=== PATIENT | male | born 1985 ===

== ENCOUNTER 2020-05-17 08:51 | Emergency (ER) | payer OTHER, SELFPAY ==
[2020-05-17 08:58] VITALS: BP 155/99; PULSE 92; RESP 16; TEMP 36.6; O2SAT 96; BMI 46.6
--- NOTE | 2020-05-17 09:24 | ED_ITS ---
HPI - Extremity Problem General Chief complaint: Extremity Problem Stated complaint: l wrist swollen pain Time Seen by Provider: 05/17/20 09:21 Source: patient Mode of arrival: ambulatory Limitations: no limitations History of Present Illness HPI Narrative: right wrist pain today without known injury. MD Complaint: extremity pain Pain Consistency: constant Location: right and other ( Wrist) Severity scale (1-10): 7 Quality: aching Radiation: none Relieving factors: immobilization Exacerbating factors: range of motion Associated symptoms: denies other symptoms Related Data Previous Rx's Medication Instructions Recorded ibuprofen 800 mg PO Q8H PRN #30 tab 05/17/20 oxycodone-acetaminophen [Percocet] 1 tab PO Q8H PRN #7 tab 05/17/20 prednisone 40 mg PO DAILY 5 Days #10 tab 05/17/20 Allergies Allergy/AdvReac Type Severity Reaction Status Date / Time kiwi [KIWI] Allergy Unknown SCRATCHY Verified 05/17/20 09:53 THROAT/VOMITING Review of Systems Review of Systems: Constitutional: No Weight loss, No Fever, No Chills, No Night Sweats, No Fatigue, No Malaise ENT/Mouth: No Hearing loss, No Ear Pain, No Nasal Congestion, No Sinus Pain, No Hoarseness, No sore throat, No Rhinorrhea, No Swallowing Difficulty Eyes: No Eye Pain, No Swelling, No Redness, No Foreign Body, No Discharge, No Vision Changes Cardiovascular: No Chest Pain, No SOB, No Dyspnea on Exertion, No Orthopnea, No Edema, No Palpitations Respiratory: No Cough, No Sputum, No Wheezing, No Smoke Exposure, No Dyspnea Gastrointestinal: No Nausea, No Vomiting, No Diarrhea, No Constipation, No abdominal Pain, No Hematochezia, No Melena Genitourinary: no irregular bleeding, No Dysuria, No Urinary Frequency, No Hematuria, No Urinary Incontinence, No Urgency, No Flank Pain, No Urinary Flow Changes, No Hesitancy Musculoskeletal: as noted in HPI Skin: No Skin Lesions, No rash Neuro: No Weakness, No Numbness, No Paresthesias, No Loss of Consciousness, No Dizziness, No Headache Psych: No Anxiety/Panic, No Depression, No SI/HI/AH/VH, No Social Issues Heme/Lymph: No Bruising, No Bleeding,No Lymphadenopathy Endocrine: No Polyuria, No Polydipsia, No Temperature Intolerance [facility] Past Medical History Attestation statement: The following information was validated with the patient. Medical History (Updated 05/17/20 @ 10:48 by Marek Kang NP) Diabetes mellitus, type 2 Social History Social History Alcohol intake: unknown Smoking Status: Unknown if ever smoked Advance Directives: No Advance Directives Information Provided: Yes Physical Exam Vital Signs: Vital Signs: Vital Signs Temp Pulse Resp BP Pulse Ox 05/17/20 08:58 97.8 F 92 16 155/99 H 96 Body Mass Index 46.6 Reviewed Const: General: cooperative and healthy appearing; No acute distress or intoxicated appearing Nutritional Appearance: average body habitus Orientation/consciousness: patient oriented x3 HENMT: Head: Yes normal to inspection Ears: hearing grossly normal bilaterally Eyes: General: appearance normal, both eyes and all related structures Visual Castro: normal visual castro by confrontation Chest: Chest palpation & inspection: normal inspection of the chest Resp: Effort & Inspection: normal respiratory effort Cardio: Jugular venous distension: no JVD Skin: General skin exam: no rashes or lesions noted Neuro: General: patient oriented x3 Extrem: General: Yes normal to inspection Elbow/forearm/wrist images: 1. area of pain. Neurovascular intact. Able to make a fist. No erythema or swelling. Course Course Course Narrative: Labs show hyperglycemia in a known diabetic did not take his metformin this morning otherwise no acute derangement. uric acid normal high. X-ray findings consistent with sequela of chronic disease related to unchanged negative ulnar variance which can sometimes be seen and ulnar impingement syndrome. Patient given wrist splint. Follow-up with orthopedics. MDM - Extremity (Nontraumatic) Lab Data Result diagrams: 05/17/20 09:38 05/17/20 09:39 Labs: Lab Results 05/17/20 05/17/20 05/17/20 Range/Units 09:38 09:38 09:39 WBC 7.8 (4.8-10.8) X10*3/uL RBC 4.88 (4.60-5.80) X10*6/uL Hgb 12.9 L (14.0-18.0) g/dl Hct 39.3 L (42-52) % MCV 80.5 (80-98) fL MCH 26.4 L (27.0-33.0) pg MCHC 32.8 (31.0-36.0) g/dl RDW 11.9 (11.0-16.0) % Plt Count 245 (160-400) X10*3/uL MPV 9.2 L (9.4-12.4) fL Immature Gran % (Auto) 0.3 (0.0-0.4) % Neut % (Auto) 66.0 (45-73) % Lymph % (Auto) 21.7 (20-40) % [place] % (Auto) 7.8 (2-11) % Eos % (Auto) 3.7 (0-4) % Baso % (Auto) 0.5 (0-2) % Lymph # (Auto) 1.7 (1.2-4.9) X10*3/uL [place] # (Auto) 0.6 (0.1-1.2) X10*3/uL Eos # (Auto) 0.3 (0.0-0.4) X10*3/uL Baso # (Auto) 0.0 (0.0-0.2) X10*3/uL Abs Immat Gran (auto) 0.02 (0.00-0.03) X10*3/uL Absolute Neuts (auto) 5.2 (2.0-8.3) X10*3/uL Absolute Nucleated RBC 0.000 (0.0-0.012) X10*3/uL Nucleated RBC % (auto) 0.0 (0.0-0.2) /100WBC Sodium 133 L (135-145) mmol/L Potassium 4.2 (3.3-5.1) mmol/l Chloride 99 (96-108) mmol/L Carbon Dioxide 23 (22-29) mmol/L Anion Gap 15 (12-20) BUN 22 H (9-16) mg/dL Creatinine 1.20 (0.5-1.4) mg/dL Estim Creat Clear Calc 129.8 Estimated GFR > 60 Random Glucose 325 H (60-115) mg/dL Uric Acid 7.0 (3.4-7.0) mg/dL Calcium 9.0 (8.4-10.2) mg/dL Discharge Plan Discharge Clinical Impression: Acute wrist pain Qualifiers: Laterality: right Qualified Code(s): M25.531 - Pain in right wrist Patient Disposition: Home, Self-Care Instructions: Arthralgia (ED) Additional Instructions: Please follow-up with office of Dr. Lopez orthopedic Hand doctor Wear supportive splint for comfort Ibuprofen for pain discomfort per label instructions Short course steroids as prescribed Rest, ice, elevate Return if any concerns or worsening symptoms otherwise follow up as instructed Thank you Prescriptions: New ibuprofen 800 mg tablet 800 mg PO Q8H PRN (Reason: pain) Qty: 30 RF: 0 prednisone 20 mg tablet 40 mg PO DAILY 5 Days Qty: 10 RF: 0 oxycodone-acetaminophen [Percocet] 5-325 mg tablet 1 tab PO Q8H PRN (Reason: pain) Qty: 7 RF: 0 Referrals: Ofelia Valadez MD [Physician] - 1 week Stand Alone Forms: Work/School Release Interventions: ED Discharge Assessment Last Done: 05/17/20 10:55 Discharge Date/Time: 05/17/20 10:58
--- NOTE | 2020-05-17 09:25 | XR_ITS ---
EXAMINATION: XR WRIST, RIGHT CLINICAL INFORMATION: No injury. Pain medial side. COMPARISON: Right wrist radiographs 04/17/2015. TECHNIQUE: PA, lateral, and oblique views of the right wrist. FINDINGS: Prior healed fourth and fifth metacarpal fractures with mild palmar angulation distally. No acute osseous abnormality is seen in the wrist. There is unchanged negative ulnar variance. IMPRESSION: No acute osseous abnormality is seen. Unchanged negative ulnar variance is seen at the wrist which can be associated with ulnar impingement syndrome. No interval change from prior
[2020-05-17] MEDS: predniSONE 20 MG TABLET 40 MG PO (09:31)
[2020-05-17] MEDS: Ibuprofen 800 MG TABLET PO (09:31)
[2020-05-17 09:42] LABS: MANUAL DIFF FLAG NO
[2020-05-17 09:45] LABS: Basophils Percent Auto 0.5 % (0-2); Eosinophils Absolute Auto 0.3 X10*3/uL (0.0-0.4); Eosinophils Percent Auto 3.7 % (0-4); Hematocrit 39.3 % (42-52); Hemoglobin 12.9 g/dl (14.0-18.0); Imm Gran Abs Auto 0.02 X10*3/uL (0.00-0.03); Imm Gran Pct Auto 0.3 % (0.0-0.4); Lymphocytes Absolute Auto 1.7 X10*3/uL (1.2-4.9); Lymphocytes Percent Auto 21.7 % (20-40); Mean Corpuscular HGB Conc 32.8 g/dl (31.0-36.0); Mean Corpuscular Hemoglobin 26.4 pg (27.0-33.0); Mean Corpuscular Volume 80.5 fL (80-98); Mean Platelet Volume 9.2 fL (9.4-12.4); Monocytes Absolute Auto 0.6 X10*3/uL (0.1-1.2); Monocytes Percent Auto 7.8 % (2-11); Neutrophils Absolute Auto 5.2 X10*3/uL (2.0-8.3); Platelet Count 245 X10*3/uL (160-400); Red Blood Count 4.88 X10*6/uL (4.60-5.80); Red Cell Distribution Width 11.9 % (11.0-16.0); White Blood Count 7.8 X10*3/uL (4.8-10.8)
[2020-05-17 10:11] LABS: Anion Gap 15 (12-20); Blood Urea Nitrogen 22 mg/dL (9-16); Carbon Dioxide 23 mmol/L (22-29); Chloride 99 mmol/L (96-108); Creatinine Clr Calc Pharmacy 129.8; Estimated Glomerular Filt Rate > 60; Glucose Random 325 mg/dL (60-115); Potassium 4.2 mmol/l (3.3-5.1); Sodium 133 mmol/L (135-145)
== END 2020-05-17 10:58 | disposition home or self-care (01) ==
PROVIDERS: Nurse Practitioner Primary Care; Emergency Provider Emergency Medicine
DX: M25.531 Pain in right wrist (principal); E11.9 Type 2 diabetes mellitus without complications
CPT/HCPCS: 29125; 36415; 73110; 80048; 84550; 85025; 99283; 99284

== ENCOUNTER 2020-12-02 19:00 | Emergency (ER) | payer MEDICAID, SELFPAY | END 2020-12-02 19:27 | DX: Z76.0 Encounter for issue of repeat prescription (principal) ==

== ENCOUNTER 2020-12-02 19:46 | Emergency (ER) | payer MEDICAID, SELFPAY ==
[2020-12-02 20:01] VITALS: BP 150/105; PULSE 110; RESP 16; TEMP 36.7; O2SAT 97; BMI 35.9
--- NOTE | 2020-12-02 20:12 | ED_ITS ---
HPI - General Adult General Chief complaint: General Medical Stated complaint: med refill Time Seen by Provider: 12/02/20 19:52 Source: patient Mode of arrival: ambulatory Limitations: no limitations History of Present Illness HPI narrative: 35 yo male with a past medical history of diabetes and hypertension here seeking med refill. The patient tells me that he last took his medications 2 days ago. Unfortunately, he called to refilled medications today and he found out that his primary care practice is closed. He is working on establishing a new primary care doctor. He has no physical complaints Related Data Previous Rx's Medication Instructions Recorded ibuprofen 800 mg PO Q8H PRN #30 tab 05/17/20 oxycodone-acetaminophen [Percocet] 1 tab PO Q8H PRN #7 tab 05/17/20 prednisone 40 mg PO DAILY 5 Days #10 tab 05/17/20 amlodipine-benazepril 1 cap PO DAILY #30 cap 12/02/20 blood sugar diagnostic #10 ea 12/02/20 blood-glucose meter #1 ea 12/02/20 chlorthalidone 50 mg PO DAILY #30 tab 12/02/20 dulaglutide [Trulicity] 1.5 mg SUBCUT QWEEK #2 ml 12/02/20 lancets #100 ea 12/02/20 metformin 500 mg PO BID #60 tab 12/02/20 metoprolol succinate 50 mg PO DAILY #30 tab 12/02/20 Allergies Allergy/AdvReac Type Severity Reaction Status Date / Time kiwi [KIWI] Allergy Unknown SCRATCHY Verified 05/17/20 09:53 THROAT/VOMITING Review of Systems Review of Systems: Yes all other systems are reviewed and are negative Constitutional: Constitutional: Reports no additional constitutional complaints, Denies body ache(s), Denies chills, Denies fever(s), Denies headache(s) and Denies weakness Eyes: Eyes: Reports no additional eye complaints and Denies change in vision ENT: Reports system reviewed and no additional complaints, except as documented, Denies dizziness, Denies headache(s), Denies nasal congestion, Denies nasal discharge and Denies neck pain Cardiovascular: Cardiovascular: Reports no additional cardiovascular complaints, Denies chest pain, Denies leg edema and Denies dyspnea Respiratory: Respiratory: Reports no additional respiratory complaints, Denies cough and Denies dyspnea Gastrointestinal: Gastrointestinal: Reports no additional gastrointestinal complaints, Denies abdominal pain, Denies diarrhea, Denies nausea and Denies vomiting Genitourinary: Genitourinary: Denies urinary incontinence Musculoskeletal: Musculoskeletal: Reports no additional musculoskeletal complaints, Denies back pain, Denies arthralgias, Denies joint swelling, Denies neck pain, Denies numbness and Denies tingling Integumentary/Breasts: Skin/Breast: Reports system reviewed and no additional complaints, except as docu and Denies rash Neurologic: Reports system reviewed and no additional complaints, except as documented, Denies Abnormal speech present, Denies dizziness, Denies headache(s), Denies numbness, Denies tingling and Denies weakness PMFSH Past Medical History Attestation statement: The following information was validated with the patient. Source: old records reviewed and nursing notes reviewed Medical History (Updated 12/02/20 @ 20:13 by Caty Heredia NP) Diabetes Diabetes mellitus, type 2 Hypertension Social History Social History Alcohol intake: former Smoking Status: Former smoker Smoked in Last 30 Days: No Use of substances other than those prescribed or required for medical reasons: No Advance Directives: No Advance Directives Information Provided: Yes Physical Exam Vital Signs: Vital Signs: Last Vital Signs Temp 98.1 F 12/02/20 20:01 Pulse 110 H 12/02/20 20:01 Resp 16 12/02/20 20:01 BP 150/105 H 12/02/20 20:01 Pulse Ox 97 12/02/20 20:01 Body Mass Index 35.9 Const: General: cooperative, healthy appearing, comfortable and no acute distress Orientation/consciousness: patient oriented x3 Limitations: no limitations HENMT: Head: Yes normal to inspection Ears: hearing grossly normal bilaterally General nose exam: Normal external nose present Face and sinus: Yes normal facial exam Mouth: Normal oral and palatal mucosa present Throat: Yes posterior oropharynx normal Eyes: General: appearance normal, both eyes and all related structures Pupils: Equal, round and reactive pupils present Neck: Neck: Yes normal visual inspection Chest: Chest palpation & inspection: normal inspection of the chest Resp: Effort & Inspection: normal respiratory effort Auscultation: clear to auscultation bilaterally Cardio: Rate: regular rate Rhythm: regular rhythm Peripheral pulses: Peripheral pulses 2+ throughout GI: Inspection: Yes normal to inspection Palpation (GI): Soft to palpation and nontender Auscultation: normal bowel sounds Back/Spine/Pelvis: Thoracic/Lumbar Spine: thoracic and lumbar spine normal to inspection Skin: General skin exam: no rashes or lesions noted Neuro: General: patient oriented x3, no focal motor deficits and normal sensation to monofilament Cranial nerves: Yes Equal, round and reactive pupils present Cognition (Neuro): normal cognition Speech: No Abnormal speech present Gait exam (Neuro): Normal gait present Motor exam (neuro): 5/5 motor strength present throughout Extrem: General: Yes normal to inspection Course Course Course Narrative: Patient here seeking medication refills for his high blood pressure and diabetes medications. He has no physical complaints. His last dose of medications for 2 days ago. Did confirm medications with [facility]. Patient is working on establishing a primary care doctor. He tells me he returned from [facility] 2 days ago. While he was there they started him on Tresiba injectable every night. I am unable to confirm this medication with a pharmacy. Will refill his other medications. Patient tells me he also ran out of lancets, strips and his batery for his glucometer. I will refill these. I did discuss the patient at the emergency department is not here for medication refills however will make this exception for 30 days supply of medications and strongly encouraged him to establish a primary care doctor. Asymptomatic HTN. Reviewed worrisome signs and symptoms of when to return to the emergency department. Comfortable discharge home. Discharge Plan Discharge Clinical Impression: Medication refill Patient Disposition: Home, Self-Care Instructions: Medicine Refill (ED) Prescriptions: New metformin 500 mg tablet 500 mg PO BID Qty: 60 RF: 0 chlorthalidone 50 mg tablet 50 mg PO DAILY Qty: 30 RF: 0 amlodipine-benazepril 10-40 mg capsule 1 cap PO DAILY Qty: 30 RF: 0 Trulicity 1.5 mg/0.5 mL pen injector 1.5 mg subcut QWEEK Qty: 2 RF: 0 (DME) blood-glucose meter Kit See Rx Instructions .ROUTE .MEDSUPPLY Qty: 1 RF: 0 (DME) lancets Misc See Rx Instructions .ROUTE .MEDSUPPLY Qty: 100 RF: 0 (DME) blood sugar diagnostic Strip See Rx Instructions .ROUTE .MEDSUPPLY Qty: 10 RF: 0 metoprolol succinate 50 mg tablet extended release 24 hr 50 mg PO DAILY Qty: 30 RF: 0 No Action ibuprofen 800 mg tablet 800 mg PO Q8H PRN (Reason: pain) Qty: 30 RF: 0 prednisone 20 mg tablet 40 mg PO DAILY 5 Days Qty: 10 RF: 0 oxycodone-acetaminophen [Percocet] 5-325 mg tablet 1 tab PO Q8H PRN (Reason: pain) Qty: 7 RF: 0 Interventions: ED Discharge Assessment Last Done: 12/02/20 20:44 Discharge Date/Time: 12/02/20 20:53
== END 2020-12-02 20:53 | disposition home or self-care (01) ==
LOC: HO.ED 20:13
PROVIDERS: Emergency Provider Internal Medicine
DX: Z76.0 Encounter for issue of repeat prescription (principal); E11.9 Type 2 diabetes mellitus without complications; I10 Essential (primary) hypertension
CPT/HCPCS: 99283; 99284

== ENCOUNTER → 2021-02-09 07:41 | Outpatient (REF) | payer MEDICAID, SELFPAY ==
--- NOTE | 2021-02-09 07:50 | CA_ITS ---
Transthoracic Echocardiogram Patient (Last, First, Middle): Colt Galvan, Gender: Male Date of : 1985 Age: 35 Procedure Date: 02/09/2021 Procedure Type: Transthoracic Echocardiogram Location: OP Height: 182.88 cm Weight: 123.83 kg BSA: 2.43 m2 Heart Rate: bpm BP: 180 / 98 mmHg [facility]: Referring MD: Valerio Wing MD Symptoms: R00.0 R94.31 TACHYCARDIA ABNORMAL EKG Study Quality: Good ECG Rhythm: Sinus Conclusions: - The left ventricular systolic function is normal. The visually estimated ejection fraction is between 60-65%. - No obvious valvular pathology seen on this study. - The inferior vena cava is mildly dilated and collapses greater than 50% with inspiration. Findings Procedure Information The patient receives contrast. Left Ventricle Normal left ventricular cavity size. There is mildly increased left ventricular wall thickness. The left ventricular systolic function is normal. The visually estimated ejection fraction is between 60-65%. There is no evidence of regional wall motion abnormalities. Diastolic function is normal for age. Right Ventricle Normal right ventricular cavity size and systolic function. Atria Both atria are normal in size. Aortic Valve The aortic valve was not well visualized. There is no aortic valve stenosis. There is no aortic valve regurgitation. Mitral Valve The mitral valve appears normal. There is trace mitral valve regurgitation. There is no mitral valve stenosis. Pulmonic Valve The pulmonic valve was not well visualized. Tricuspid Valve Normal tricuspid valve structure. There is trace tricuspid valve regurgitation. Tricuspid regurgitation envelope is inadequate for calculation of right ventricular systolic pressure. Great Vessels The aortic annulus, sinuses of valsalva, and asc aorta are normal in size. Venous The inferior vena cava is mildly dilated and collapses greater than 50% with inspiration. Pericardium/Pleural There is no evidence of pericardial effusion. Prior Study Comparison No prior study available for comparison. Recommendations, Care & Conclusions No obvious valvular pathology seen on this study. Measurements 2D Linear Measurements RVIDd: 3.37 RVIDd Index: 1.39 IVSd: 1.01 0.6-0.9/0.6-1.0 cm LVIDd: 5.37 3.9-5.3/4.2-5.9 cm LVIDd Index: 2.21 2.4-3.2/2.2-3.1 cm/m2 LVIDs: 3.49 2.0-3.6 cm LVPWd: 1.34 0.7-1.1 cm Ao Root: 2.80 2.1-3.5 cm LA Diam: 4.60 2.7-3.8/3.0-4.0 cm LAIDs Index: 1.89 1.5-2.3 cm/m2 LV Mass: 317.46 67-162/88-224 g LV Mass Index: 130.64 43-95/49-115 g/m2 LVOT Diam: 2.30 3.0+(-)1.3 cm 2D Systolic Function EF 4C: 73.90 >55% EF 2C: 75.60 >55% Mitral Valve E'Lateral: 11.10 E'Medial: 9.14 Aortic Valve AoV Pk Juan Manuel: 1.51 AoV Mn Juan Manuel: 1.17 AoV VTI: 0.31 AoV Pk Grad: 9.00 Aov Mn Grad: 6.00 MYLES Cont.VTI: 2.40 LVOT LVOT Pk Juan Manuel: 0.93 LVOT Mn Juan Manuel: 0.62 LVOT VTI: 0.18 LVOT Pk Grad: 3.00 LVOT Mn Grad: 2.00 LVOT Diam: 2.30 LVOT Area: 4.15 Diastolic Function E'Medial: 9.14 E' Laterial: 11.10 Tricuspid Valve RA Press: 8.00 Great Vessels Aorta Ao Root-2D: 2.80 2.0-3.7 cm Ao Asc: 3.30 2.1-3.4 cm Updated in Other Vendor System with Status of Final Pasquale Dominique MD electronically signed on 02/09/2021 10:40:55 AM with status of Final
== END ==
LOC: HO.CARD 07:41
PROVIDERS: PCP Internal Medicine; Visit Provider Internal Medicine
DX: R00.0 Tachycardia, unspecified (principal); R94.31 Abnormal electrocardiogram [ECG] [EKG]; D64.9 Anemia, unspecified; E11.9 Type 2 diabetes mellitus without complications; E78.5 Hyperlipidemia, unspecified; N52.9 Male erectile dysfunction, unspecified; E55.9 Vitamin D deficiency, unspecified; Z20.2 Contact with and (suspected) exposure to infections with a predominantly sexual mode of transmission
CPT/HCPCS: 93306; Q9957

== ENCOUNTER 2021-02-16 10:06 | Outpatient (REF) | payer MEDICAID, SELFPAY ==
[2021-02-16 11:12] LABS: Hematocrit 40.1 % (42-52); Hemoglobin 12.6 g/dl (14.0-18.0); Mean Corpuscular HGB Conc 31.4 g/dl (31.0-36.0); Mean Corpuscular Hemoglobin 24.8 pg (27.0-33.0); Mean Corpuscular Volume 78.8 fL (80-98); Mean Platelet Volume 9.7 fL (9.4-12.4); Platelet Count 278 X10*3/uL (160-400); Red Blood Count 5.09 X10*6/uL (4.60-5.80); Red Cell Distribution Width 14.2 % (11.0-16.0); White Blood Count 21.7 X10*3/uL (4.8-10.8)
[2021-02-16 11:18] LABS: Alanine Aminotransferase 28 U/L (0-40); Albumin Level 3.4 g/dL (3.5-5.0); Alkaline Phosphatase 101 U/L (39-117); Anion Gap 13 (12-20); Aspartate Amino Transferase 28 U/L (5-37); Blood Urea Nitrogen 23 mg/dL (9-16); Calcium 8.4 mg/dL (8.4-10.2); Carbon Dioxide 27 mmol/L (22-29); Chloride 101 mmol/L (96-108); Cholesterol 104 mg/dL; Estimated Glomerular Filt Rate 47; Glucose Fasting 149 mg/dL (60-99); HDL Cholesterol 54 mg/dL; LDL Cholesterol Calculated 37 mg/dl; Potassium 3.5 mmol/L (3.3-5.1); Sodium 137 mmol/L (135-145); Total Protein 6.5 g/dL (6.5-8.0); Triglycerides 65 mg/dL
[2021-02-16 11:31] LABS: HIV AB/AG Nonreactive (Nonreactive); HIV Num 1 0.45 S/CO (0.00-0.99)
[2021-02-16 11:44] LABS: Syphilis Screen Nonreactive (Nonreactive)
[2021-02-16 12:18] LABS: Band Neutrophils Percent 24 % (3-5); Lymphocytes Absolute Manual 1.1 X10*3/uL (0.6-4.8); Lymphocytes Percent Manual 5 % (20-40); Metamyelocytes Absolute 0.7 X10*3/uL; Metamyelocytes Percent 3 %; Monocytes Absolute Manual 0.7 X10*3/uL (0.0-1.2); Monocytes Percent Manual 3 % (2-11); Neutrophils Absolute Manual 19.3 X10*3/uL (2.2-7.9); Neutrophils Percent Manual 65 % (45-73)
[2021-02-16 12:19] LABS: Microcytosis 1+ (5-14) /OIF; Platelet Estimate NORMAL (NORMAL); Platelet Morphology Comment NORMAL; RBC Morphology NOTED
[2021-02-19 22:02] LABS: Glutamic acid decarboxylase Ab <5 IU/mL (<5)
[2021-02-20 13:11] LABS: Vitamin D 25-OH, D2 <4 ng/mL; Vitamin D 25-OH, D3 26 ng/mL; Vitamin D 25-OH, Total 26 ng/mL (30-100)
[2021-02-20 18:56] LABS: Testosterone, Free 16.8 pg/mL (35.0-155.0); Testosterone, Total 61 ng/dL (250-1100)
[2021-03-06 19:02] LABS: Insulin Auto Antibody <0.4 U/mL (<0.4)
== END 2021-02-16 10:07 | disposition home or self-care (01) ==
LOC: HO.LAB 10:06
PROVIDERS: PCP Internal Medicine; Visit Provider Internal Medicine
DX: E55.9 Vitamin D deficiency, unspecified (principal); D64.9 Anemia, unspecified; E11.9 Type 2 diabetes mellitus without complications; N52.9 Male erectile dysfunction, unspecified; Z20.2 Contact with and (suspected) exposure to infections with a predominantly sexual mode of transmission
CPT/HCPCS: 36415; 80053; 80061; 82306; 84402; 84403; 85007; 85025; 85027; 86337; 86341; 86780; 87389

== ENCOUNTER 2021-02-17 08:33 | Outpatient (REF) | payer MEDICAID, SELFPAY ==
[2021-02-17 11:20] LABS: Creatinine Urine 168.63 mg/dL; Microalbum/Creatinine Ratio Ur 11.2 ug/mg cr
== END 2021-02-17 08:34 | disposition home or self-care (01) ==
LOC: HO.LAB 08:33
PROVIDERS: PCP Internal Medicine; Visit Provider Internal Medicine
DX: E11.9 Type 2 diabetes mellitus without complications (principal)
CPT/HCPCS: 82043

== ENCOUNTER 2021-02-17 08:33 | Emergency (ER) | payer MEDICAID, SELFPAY ==
--- NOTE | ~2021-02-17 | XR_ITS ---
EXAMINATION: XR CHEST CLINICAL INFORMATION: Cough, wheezing COMPARISON: Chest radiographs 10/04/2018, 09/29/2014 TECHNIQUE: The chest is imaged in 2 frontal views and a lateral projection for a total of 3 views. FINDINGS: There is consolidation involving the left lower lobe with some sparing apex superior segment. There is no volume loss or mediastinal shift. Symmetric coarsening of the bronchiolar markings is present. No hyperinflation. No overt effusion. Right costophrenic sulcus is clear. The heart is normal in size. The hilar and mediastinal contours and bony structures are unremarkable. XR/XR chest 2V IMPRESSION: Pneumonia left lower lobe. Coarsening bronchiolar markings
--- NOTE | 2021-02-17 08:48 | ECG_ITS ---
Test Reason : CP Blood Pressure : / mmHG Vent. Rate : 100 BPM Atrial Rate : 100 BPM P-R Int : 158 ms QRS Dur : 102 ms QT Int : 372 ms P-R-T Axes : 061 075 044 degrees QTc Int : 479 ms Normal sinus rhythm Normal ECG When compared with ECG of 29-SEP-2014 16:57, No significant change was found Referred By: Generic ED Physician Electronically Signed By:JOSÉ NEWBY MD
[2021-02-17 08:52] VITALS: BP 104/66; PULSE 102; RESP 18; TEMP 37.1; O2SAT 98; BMI 41.6
--- NOTE | 2021-02-17 08:54 | ED.CHESTPAIN ---
HPI - Chest Pain General Stated Complaint: Chest Pain Time Seen by Provider: 02/17/21 08:54 Source: patient Mode of arrival: ambulatory Limitations: no limitations History of Present Illness HPI narrative: patient with cough and wheezing. Feels tight and has frontal headache. Coughing up yellow sputum. complaint: chest heaviness Onset (ago): day(s) Timing of current episode: constant Pain radiation: none Quality: heaviness Related Data Home Medications Medication Instructions Recorded Confirmed albuterol sulfate 90 mcg/actuation 2 puff INHALATION Q6H PRN 01/22/21 01/22/21 aerosol inhaler Previous Rx's Medication Instructions Recorded blood sugar diagnostic #10 ea 12/02/20 blood-glucose meter #1 ea 12/02/20 lancets #100 ea 12/02/20 escitalopram oxalate 5 mg tablet 5 mg PO DAILY 90 Days #90 tab 01/22/21 amlodipine 10 mg-benazepril 40 mg 1 cap PO DAILY 90 Days #90 cap 01/26/21 capsule chlorthalidone 50 mg tablet 50 mg PO DAILY 90 Days #90 tab 01/26/21 dulaglutide 1.5 mg/0.5 mL 1.5 mg SUBCUT QWEEK 30 Days #2.5 ml 01/26/21 subcutaneous pen injector insulin degludec 100 unit/mL (3 25 unit SUBCUT QPM 90 Days #22.5 ml 01/26/21 mL) subcutaneous pen metformin 500 mg tablet 500 mg PO BID 90 Days #180 tab 01/26/21 metoprolol succinate 25 mg 25 mg PO DAILY 90 Days #90 tab 01/26/21 tablet,extended release 24 hr omeprazole 20 mg capsule,delayed 20 mg PO DAILY 90 Days #90 cap 01/26/21 release pregabalin 75 mg capsule 75 mg PO DAILY 90 Days #90 cap 01/26/21 pen needle, diabetic 31 gauge x #50 ea 01/29/21 5/16 levofloxacin 500 mg PO DAILY #10 tab 02/17/21 Allergies Allergy/AdvReac Type Severity Reaction Status Date / Time kiwi [KIWI] Allergy Intermediate SCRATCHY Verified 01/22/21 15:35 THROAT/VOMITING Review of Systems Constitutional: Constitutional: Reports no additional constitutional complaints Eyes: Eyes: Reports no additional eye complaints ENT: Denies dizziness Cardiovascular: Cardiovascular: Reports no additional cardiovascular complaints Respiratory: Respiratory: Reports as per HPI Gastrointestinal: Gastrointestinal: Reports no additional gastrointestinal complaints Musculoskeletal: Musculoskeletal: Reports no additional musculoskeletal complaints Integumentary/Breasts: Skin/Breast: Denies rash Neurologic: Reports system reviewed and no additional complaints, except as documented, Denies dizziness and Denies Sensory deficit (Neuro) Psychiatric: Psychiatric: Denies anxiety [facility] Past Medical History Medical History Diabetes Diabetes mellitus, type 2 Erectile dysfunction GERD (gastroesophageal reflux disease) Hypertension Mild asthma Neuropathy Obese STD exposure Surgical History History of hernia surgery Family History Family History Father Diabetes Hypertension Mother Alzheimer disease Social History Social History Housing: House Alcohol intake: former Patient Tobacco Use Status: Former Tobacco user Tobacco use type: Cigarette e-Cigarette/Vaping Use: Never Used Second Hand Smoke Exposure: No Advance Directives: Yes Advance Directives Information Provided: Yes Advance Directives on File: No service: No Current occupational status: employed Current occupational exposures/hazards: No Physical Exam Vital Signs: Vital Signs: Last Vital Signs Temp 98.7 F 02/17/21 08:52 Pulse 104 H 02/17/21 11:50 Resp 16 02/17/21 11:50 BP 110/62 02/17/21 11:50 Pulse Ox 96 02/17/21 11:50 Body Mass Index 41.6 Const: General: healthy appearing Nutritional Appearance: overweight Orientation/consciousness: oriented to person and patient oriented x3 Limitations: no limitations HENMT: Head: Yes normal to inspection Ears: external ears normal General nose exam: Normal external nose present Mouth: Normal oral and palatal mucosa present and oropharynx normal Throat: Yes posterior oropharynx normal Eyes: General: appearance normal, both eyes and all related structures Neck: Other: supple Neck: Yes normal visual inspection Chest: Chest palpation & inspection: normal inspection of the chest Resp: Other: slight wheeze Cardio: Jugular venous distension: no JVD Rate: regular rate Rhythm: regular rhythm Heart sounds: S1 normal heart sound present and S2 normal heart sound present GI: Inspection: Yes normal to inspection Palpation (GI): Soft to palpation, nontender and No hepatosplenomegaly present Auscultation: normal bowel sounds : General: Yes no CVA tenderness Back/Spine/Pelvis: Back: no CVA tenderness Skin: General skin exam: no rashes or lesions noted Neuro: General: oriented to person and patient oriented x3 Cranial nerves: Yes CN's II-XII intact bilaterally Motor exam (neuro): 5/5 motor strength present throughout Sensory Exam: No Sensory deficit (Neuro) Extrem: General: Yes normal to inspection Psych: Appearance: grossly normal Course Reevaluation(s) Reevaluation #1: Patient with wBC of 21K with 24 bands, Left lower lobe infiltrate, he is not hypoxic or hypotensive. Will dc on levaquin for 10 days he must follow up with his doctor tomorrow Time: 12:58 MDM - Chest Pain Lab Data Labs: Lab Results 02/17/21 Range/Units 09:23 Coronavirus (PCR) NEGATIVE (Negative) Influenza Type A (PCR) NEGATIVE (Negative) Influenza Type B (PCR) NEGATIVE (Negative) RSV RNA Qual (PCR) NEGATIVE (Negative) ECG Data ECG #1: Attestation: I personally reviewed and interpreted this ECG as follows: Interpretation: normal sinus rate of 100, no st or twave changes Discharge Plan Discharge Clinical Impression: Pneumonia Qualifiers: Pneumonia type: due to unspecified organism Laterality: left Lung location: lower lobe of lung Qualified Code(s): J18.9 - Pneumonia, unspecified organism Patient Disposition: Home, Self-Care Instructions: Pneumonia (ED) Additional Instructions: You must see your doctor tomorrow. If you feel worse you must come to the ED Prescriptions: New levofloxacin 500 mg tablet 500 mg PO DAILY Qty: 10 RF: 0 No Action amlodipine-benazepril 10-40 mg capsule 1 cap PO DAILY 90 Days Qty: 90 RF: 1 chlorthalidone 50 mg tablet 50 mg PO DAILY 90 Days Qty: 90 RF: 1 Trulicity 1.5 mg/0.5 mL pen injector 1.5 mg subcut QWEEK 30 Days Qty: 2.5 RF: 6 Tresiba FlexTouch U-100 100 unit/mL (3 mL) insulin pen 25 unit subcut QPM 90 Days Qty: 22.5 RF: 3 metformin 500 mg tablet 500 mg PO BID 90 Days Qty: 180 RF: 3 pregabalin [Lyrica] 75 mg capsule 75 mg PO DAILY 90 Days Qty: 90 RF: 0 omeprazole 20 mg capsule,delayed release(DR/EC) 20 mg PO DAILY 90 Days Qty: 90 RF: 1 metoprolol succinate 25 mg tablet extended release 24 hr 25 mg PO DAILY 90 Days Qty: 90 RF: 1 (DME) pen needle, diabetic [1st Tier Unifine Pentips] 31 gauge x 5/16 needle See Rx Instructions .ROUTE .MEDSUPPLY Qty: 50 RF: 11 (DME) blood-glucose meter Kit See Rx Instructions .ROUTE .MEDSUPPLY Qty: 1 RF: 0 (DME) lancets Misc See Rx Instructions .ROUTE .MEDSUPPLY Qty: 100 RF: 0 (DME) blood sugar diagnostic Strip See Rx Instructions .ROUTE .MEDSUPPLY Qty: 10 RF: 0 albuterol sulfate [ProAir HFA] 90 mcg/actuation HFA aerosol inhaler 2 puff inhalation Q6H PRNRF: 0 escitalopram oxalate 5 mg tablet 5 mg PO DAILY 90 Days Qty: 90 RF: 0 Referrals: Valerio Wing MD [Primary Care Provider] - 1 day (You must be seen tomorrow for your pneumonia)
[2021-02-17 09:32] VITALS: PULSE 101; O2SAT 94
[2021-02-17] MEDS: Albuterol Sulfate 90 MCG 8 GM INHALER 4 PUFF INHALE (09:32)
[2021-02-17 10:25] LABS: Influenza A PCR NEGATIVE (Negative); Influenza B PCR NEGATIVE (Negative); Resp Syncy Virus RNA Qual PCR NEGATIVE (Negative); SARS COV2 PCR INHOUSE NEGATIVE (Negative)
[2021-02-17] MEDS: 0.9 % Sodium Chloride 1,000 ML 999 ML IVCONT (11:31)
[2021-02-17] MEDS: cefTRIAXone sodium 1 GM in 0.9 % Sodium Chloride 50 ML IV (11:47)
[2021-02-17 11:50] VITALS: BP 110/62; PULSE 104; RESP 16; O2SAT 96
[2021-02-17] MEDS: Azithromycin 500 MG TABLET PO (11:55)
== END 2021-02-17 13:10 | disposition home or self-care (01) ==
PROVIDERS: Emergency Provider Emergency Medicine; PCP Internal Medicine
DX: J18.9 Pneumonia, unspecified organism (principal); I10 Essential (primary) hypertension; E11.9 Type 2 diabetes mellitus without complications; Z79.4 Long term (current) use of insulin; Z79.899 Other long term (current) drug therapy; Z20.822 Contact with and (suspected) exposure to COVID-19
CPT/HCPCS: 0241U; 36415; 71046; 87040; 93005; 94640; 96361; 96365; 96368; 99284; 99285; J0696

== ENCOUNTER 2021-02-23 11:19 | Emergency (ER) | payer MEDICAID, SELFPAY ==
--- NOTE | ~2021-02-23 | XR_ITS ---
EXAMINATION: XR CHEST CLINICAL INFORMATION: Left-sided pneumonia. COMPARISON: Chest 02/17/2021 TECHNIQUE: 2 views of the chest were obtained. FINDINGS: There is mild haziness in the left lung base suggestive of left pleural effusion with underlying atelectasis/infiltrate. There is platelike atelectasis right lung base. The upper lungs are clear. The heart size is normal. There is moderate spondylosis dorsal spine. XR/XR chest 2V IMPRESSION: Left lung effusion with underlying atelectasis/infiltrate.
[2021-02-23 11:45] VITALS: BP 133/79; PULSE 93; RESP 22; TEMP 37.1; O2SAT 95; BMI 37.0
--- NOTE | 2021-02-23 12:13 | PC.NURSE ---
pt a&ox3, pt states he has been coughing up bloody sputum during the week, lungs clear- lt upper lobe diminished, c/o 9/10 pain left rib area, 2 l o2 nc 98%, will continue to monitor.
--- NOTE | 2021-02-23 12:39 | ED_ITS ---
HPI - SOB/Dyspnea General Chief Complaint: Dyspnea Stated Complaint: SOB Time Seen by Provider: 02/23/21 12:39 Source: patient Mode of arrival: ambulatory Limitations: no limitations History of Present Illness HPI Narrative: One week ago patient diagnosed with left lower lobe infiltrate and WBC of 21K. Patient has taken about 7 pills of levaquin, patient is feeling worse.zoe BECKMAN elicited complaint: shortness of breath and cough Pertinent past history: diabetes and pneumonia Onset (ago): week(s) Context: recent illness (patient diagnosed with pneumonia) Timing: constant Severity: moderate Exacerbating factors: lying flat and coughing Relieving factors: nothing Associated symptoms: cough Treatment prior to arrival: other (levaquin) Related Data Home Medications Medication Instructions Recorded Confirmed albuterol sulfate 90 mcg/actuation 2 puff INHALATION Q6H PRN 01/22/21 01/22/21 aerosol inhaler Previous Rx's Medication Instructions Recorded blood sugar diagnostic #10 ea 12/02/20 blood-glucose meter #1 ea 12/02/20 lancets #100 ea 12/02/20 escitalopram oxalate 5 mg tablet 5 mg PO DAILY 90 Days #90 tab 01/22/21 amlodipine 10 mg-benazepril 40 mg 1 cap PO DAILY 90 Days #90 cap 01/26/21 capsule chlorthalidone 50 mg tablet 50 mg PO DAILY 90 Days #90 tab 01/26/21 dulaglutide 1.5 mg/0.5 mL 1.5 mg SUBCUT QWEEK 30 Days #2.5 ml 01/26/21 subcutaneous pen injector insulin degludec 100 unit/mL (3 25 unit SUBCUT QPM 90 Days #22.5 ml 01/26/21 mL) subcutaneous pen metformin 500 mg tablet 500 mg PO BID 90 Days #180 tab 01/26/21 metoprolol succinate 25 mg 25 mg PO DAILY 90 Days #90 tab 01/26/21 tablet,extended release 24 hr omeprazole 20 mg capsule,delayed 20 mg PO DAILY 90 Days #90 cap 01/26/21 release pregabalin 75 mg capsule 75 mg PO DAILY 90 Days #90 cap 01/26/21 pen needle, diabetic 31 gauge x #50 ea 01/29/21 5/16 levofloxacin 500 mg PO DAILY #10 tab 02/17/21 naproxen [Naprosyn] 500 mg PO BID #20 tab 02/23/21 Allergies Allergy/AdvReac Type Severity Reaction Status Date / Time kiwi [KIWI] Allergy Intermediate SCRATCHY Verified 01/22/21 15:35 THROAT/VOMITING Review of Systems Constitutional: Constitutional: Reports no additional constitutional complaints Eyes: Eyes: Reports no additional eye complaints ENT: Denies dizziness Cardiovascular: Cardiovascular: Reports no additional cardiovascular complaints Respiratory: Respiratory: Reports as per HPI Gastrointestinal: Gastrointestinal: Reports no additional gastrointestinal complaints Musculoskeletal: Musculoskeletal: Reports no additional musculoskeletal complaints Integumentary/Breasts: Skin/Breast: Denies rash Neurologic: Reports system reviewed and no additional complaints, except as documented, Denies dizziness and Denies Sensory deficit (Neuro) Psychiatric: Psychiatric: Denies anxiety PMF[facility] Past Medical History Medical History Diabetes Diabetes mellitus, type 2 Erectile dysfunction GERD (gastroesophageal reflux disease) Hypertension Mild asthma Neuropathy Obese STD exposure Surgical History History of hernia surgery Family History Family History Father Diabetes Hypertension Mother Alzheimer disease Social History Social History Housing: House Alcohol intake: never Patient Tobacco Use Status: Former Tobacco user Tobacco use type: Cigarette e-Cigarette/Vaping Use: Never Used Second Hand Smoke Exposure: No Use of substances other than those prescribed or required for medical reasons: No Advance Directives: Yes Advance Directives Information Provided: Yes Advance Directives on File: No service: No Current occupational status: employed Current occupational exposures/hazards: No Physical Exam Vital Signs: Vital Signs: Last Vital Signs Temp 98.6 F 02/23/21 13:30 Pulse 83 02/23/21 13:30 Resp 18 02/23/21 13:30 BP 139/83 02/23/21 13:30 Pulse Ox 94 02/23/21 13:30 Body Mass Index 37.0 Const: Other: Male appearing weak, coughing Nutritional Appearance: overweight Orientation/consciousness: oriented to person and patient oriented x3 Limitations: no limitations HENMT: Head: Yes normal to inspection Ears: external ears normal General nose exam: Normal external nose present Mouth: Normal oral and palatal mucosa present and oropharynx normal Throat: Yes posterior oropharynx normal Eyes: General: appearance normal, both eyes and all related structures Neck: Other: supple Neck: Yes normal visual inspection Chest: Chest palpation & inspection: normal inspection of the chest Resp: Auscultation: clear to auscultation bilaterally Cardio: Jugular venous distension: no JVD Rate: regular rate Rhythm: regular rhythm Heart sounds: S1 normal heart sound present and S2 normal heart sound present GI: Inspection: Yes normal to inspection Palpation (GI): Soft to palpation, nontender and No hepatosplenomegaly present Auscultation: normal bowel sounds : General: Yes no CVA tenderness Back/Spine/Pelvis: Back: no CVA tenderness Skin: General skin exam: no rashes or lesions noted Neuro: General: oriented to person and patient oriented x3 Cranial nerves: Yes CN's II-XII intact bilaterally Motor exam (neuro): 5/5 motor strength present throughout Sensory Exam: No Sensory deficit (Neuro) Extrem: General: Yes normal to inspection Psych: Appearance: grossly normal Course Reevaluation(s) Reevaluation #1: patient with large infiltrate with high WBC and bandemia and last visit, all labs and parameters improved minus increase in his sugar. Will give some SQ insulin and dc home on levaquin and NSAIDs. Time: 14:39 MDM - SOB/Dyspnea Lab Data Result diagrams: 02/23/21 13:26 02/23/21 13:26 Labs: Lab Results 02/23/21 02/23/21 02/23/21 Range/Units 13:26 13:26 13:26 WBC 11.3 H (4.8-10.8) X10*3/uL RBC 5.09 (4.60-5.80) X10*6/uL Hgb 12.6 L (14.0-18.0) g/dl Hct 38.7 L (42-52) % MCV 76.0 L (80-98) fL MCH 24.8 L (27.0-33.0) pg MCHC 32.6 (31.0-36.0) g/dl RDW 14.3 (11.0-16.0) % Plt Count 384 D (160-400) X10*3/uL MPV 9.5 (9.4-12.4) fL Immature Gran % (Auto) Cancelled Neut % (Auto) Cancelled Lymph % (Auto) Cancelled [place] % (Auto) Cancelled Eos % (Auto) Cancelled Baso % (Auto) Cancelled Lymph # (Auto) Cancelled [place] # (Auto) Cancelled Eos # (Auto) Cancelled Baso # (Auto) Cancelled Abs Immat Gran (auto) Cancelled Absolute Neuts (auto) Cancelled Absolute Nucleated RBC 0.000 (0.0-0.012) X10*3/uL Nucleated RBC % (auto) 0.0 (0.0-0.2) /100WBC Neutrophils % (Manual) 78 H (45-73) % Band Neutrophils % 4 (3-5) % Lymphocytes % (Manual) 13 L (20-40) % Monocytes % (Manual) 4 (2-11) % Basophils % (Manual) 1 (0-1) % Abs Neuts (Manual) 9.3 H (2.2-7.9) X10*3/uL Lymphocytes # (Manual) 1.5 (0.6-4.8) X10*3/uL Monocytes # (Manual) 0.5 (0.0-1.2) X10*3/uL Basophils # (Manual) 0.1 (0.0-0.3) X10*3/uL Platelet Estimate NORMAL (NORMAL) Plt Morphology Comment NORMAL RBC Morphology NORMAL Sodium 135 (135-145) mmol/L Potassium 3.5 (3.3-5.1) mmol/L Chloride 93 L (96-108) mmol/L Carbon Dioxide 31 H (22-29) mmol/L Anion Gap 15 (12-20) BUN 28 H (9-16) mg/dL Creatinine 1.27 (0.5-1.4) mg/dL Estim Creat Clear Calc 108.2 Estimated GFR > 60 Random Glucose 380 H* (60-115) mg/dL Lactic Acid 1.9 (0.5-2.0) mmol/L Calcium 8.8 (8.4-10.2) mg/dL Total Bilirubin 0.2 (0.0-1.0) mg/dL Direct Bilirubin 0.2 (0.0-0.5) mg/dL AST 12 D (5-37) U/L ALT 16 (0-40) U/L Alkaline Phosphatase 140 H D (39-117) U/L Total Protein 6.7 (6.5-8.0) g/dL Albumin 3.1 L (3.5-5.0) g/dL Coronavirus (PCR) (Negative) Influenza Type A (PCR) (Negative) Influenza Type B (PCR) (Negative) RSV RNA Qual (PCR) (Negative) 02/23/21 Range/Units 13:27 WBC (4.8-10.8) X10*3/uL RBC (4.60-5.80) X10*6/uL Hgb (14.0-18.0) g/dl Hct (42-52) % MCV (80-98) fL MCH (27.0-33.0) pg MCHC (31.0-36.0) g/dl RDW (11.0-16.0) % Plt Count (160-400) X10*3/uL MPV (9.4-12.4) fL Immature Gran % (Auto) Neut % (Auto) Lymph % (Auto) [place] % (Auto) Eos % (Auto) Baso % (Auto) Lymph # (Auto) [place] # (Auto) Eos # (Auto) Baso # (Auto) Abs Immat Gran (auto) Absolute Neuts (auto) Absolute Nucleated RBC (0.0-0.012) X10*3/uL Nucleated RBC % (auto) (0.0-0.2) /100WBC Neutrophils % (Manual) (45-73) % Band Neutrophils % (3-5) % Lymphocytes % (Manual) (20-40) % Monocytes % (Manual) (2-11) % Basophils % (Manual) (0-1) % Abs Neuts (Manual) (2.2-7.9) X10*3/uL Lymphocytes # (Manual) (0.6-4.8) X10*3/uL Monocytes # (Manual) (0.0-1.2) X10*3/uL Basophils # (Manual) (0.0-0.3) X10*3/uL Platelet Estimate (NORMAL) Plt Morphology Comment RBC Morphology Sodium (135-145) mmol/L Potassium (3.3-5.1) mmol/L Chloride (96-108) mmol/L Carbon Dioxide (22-29) mmol/L Anion Gap (12-20) BUN (9-16) mg/dL Creatinine (0.5-1.4) mg/dL Estim Creat Clear Calc Estimated GFR Random Glucose (60-115) mg/dL Lactic Acid (0.5-2.0) mmol/L Calcium (8.4-10.2) mg/dL Total Bilirubin (0.0-1.0) mg/dL Direct Bilirubin (0.0-0.5) mg/dL AST (5-37) U/L ALT (0-40) U/L Alkaline Phosphatase (39-117) U/L Total Protein (6.5-8.0) g/dL Albumin (3.5-5.0) g/dL Coronavirus (PCR) NEGATIVE (Negative) Influenza Type A (PCR) NEGATIVE (Negative) Influenza Type B (PCR) NEGATIVE (Negative) RSV RNA Qual (PCR) NEGATIVE (Negative) Imaging Data Chest x-ray: Radiologist's impression: INfiltrate improved, now with small effusion Discharge Plan Discharge Clinical Impression: Community acquired pneumonia Qualifiers: Laterality: left Lung location: lower lobe of lung Qualified Code(s): J18.9 - Pneumonia, unspecified organism Patient Disposition: Home, Self-Care Instructions: Community Acquired Pneumonia (ED) Prescriptions: New naproxen [Naprosyn] 500 mg tablet 500 mg PO BID Qty: 20 RF: 0 No Action amlodipine-benazepril 10-40 mg capsule 1 cap PO DAILY 90 Days Qty: 90 RF: 1 chlorthalidone 50 mg tablet 50 mg PO DAILY 90 Days Qty: 90 RF: 1 Trulicity 1.5 mg/0.5 mL pen injector 1.5 mg subcut QWEEK 30 Days Qty: 2.5 RF: 6 Tresiba FlexTouch U-100 100 unit/mL (3 mL) insulin pen 25 unit subcut QPM 90 Days Qty: 22.5 RF: 3 metformin 500 mg tablet 500 mg PO BID 90 Days Qty: 180 RF: 3 pregabalin [Lyrica] 75 mg capsule 75 mg PO DAILY 90 Days Qty: 90 RF: 0 omeprazole 20 mg capsule,delayed release(DR/EC) 20 mg PO DAILY 90 Days Qty: 90 RF: 1 metoprolol succinate 25 mg tablet extended release 24 hr 25 mg PO DAILY 90 Days Qty: 90 RF: 1 (DME) pen needle, diabetic [1st Tier Unifine Pentips] 31 gauge x 5/16 needle See Rx Instructions .ROUTE .MEDSUPPLY Qty: 50 RF: 11 levofloxacin 500 mg tablet 500 mg PO DAILY Qty: 10 RF: 0 (DME) blood-glucose meter Kit See Rx Instructions .ROUTE .MEDSUPPLY Qty: 1 RF: 0 (DME) lancets Misc See Rx Instructions .ROUTE .MEDSUPPLY Qty: 100 RF: 0 (DME) blood sugar diagnostic Strip See Rx Instructions .ROUTE .MEDSUPPLY Qty: 10 RF: 0 albuterol sulfate [ProAir HFA] 90 mcg/actuation HFA aerosol inhaler 2 puff inhalation Q6H PRNRF: 0 escitalopram oxalate 5 mg tablet 5 mg PO DAILY 90 Days Qty: 90 RF: 0 Stand Alone Forms: Work/School Release
[2021-02-23] MEDS: 0.9 % Sodium Chloride 1,000 ML 999 ML IVCONT ×2 (13:29→15:00)
[2021-02-23 13:30] VITALS: BP 139/83; PULSE 83; RESP 18; TEMP 37; O2SAT 94
--- NOTE | 2021-02-23 13:30 | PC.NURSE ---
iv inserted labs drawn, covid swab obtained, ivf hanging per order, vss, will continue to monitor.
[2021-02-23] MEDS: Ketorolac Tromethamine 15 MG/ML VIAL 30 MG IVPUSH (13:38)
[2021-02-23] MEDS: cefTRIAXone sodium 2 GM in 0.9 % Sodium Chloride 50 ML IV (13:38)
[2021-02-23 13:39] LABS: Hematocrit 38.7 % (42-52); Hemoglobin 12.6 g/dl (14.0-18.0); Mean Corpuscular HGB Conc 32.6 g/dl (31.0-36.0); Mean Corpuscular Hemoglobin 24.8 pg (27.0-33.0); Mean Platelet Volume 9.5 fL (9.4-12.4); Platelet Count 384 X10*3/uL (160-400); Red Blood Count 5.09 X10*6/uL (4.60-5.80); Red Cell Distribution Width 14.3 % (11.0-16.0); White Blood Count 11.3 X10*3/uL (4.8-10.8)
[2021-02-23 13:57] LABS: Lactic Acid 1.9 mmol/L (0.5-2.0)
[2021-02-23 14:04] LABS: Band Neutrophils Percent 4 % (3-5); Basophils Abs Manual 0.1 X10*3/uL (0.0-0.3); Basophils Percent Manual 1 % (0-1); Lymphocytes Absolute Manual 1.5 X10*3/uL (0.6-4.8); Lymphocytes Percent Manual 13 % (20-40); Monocytes Absolute Manual 0.5 X10*3/uL (0.0-1.2); Monocytes Percent Manual 4 % (2-11); Neutrophils Absolute Manual 9.3 X10*3/uL (2.2-7.9); Neutrophils Percent Manual 78 % (45-73)
[2021-02-23 14:05] LABS: Alanine Aminotransferase 16 U/L (0-40); Albumin Level 3.1 g/dL (3.5-5.0); Alkaline Phosphatase 140 U/L (39-117); Anion Gap 15 (12-20); Aspartate Amino Transferase 12 U/L (5-37); Bilirubin Direct 0.2 mg/dL (0.0-0.5); Bilirubin Total 0.2 mg/dL (0.0-1.0); Blood Urea Nitrogen 28 mg/dL (9-16); Calcium 8.8 mg/dL (8.4-10.2); Carbon Dioxide 31 mmol/L (22-29); Chloride 93 mmol/L (96-108); Creatinine Clr Calc Pharmacy 108.2; Estimated Glomerular Filt Rate > 60; Glucose Random 380 mg/dL (60-115); Potassium 3.5 mmol/L (3.3-5.1); Sodium 135 mmol/L (135-145); Total Protein 6.7 g/dL (6.5-8.0)
[2021-02-23 14:06] LABS: Platelet Estimate NORMAL (NORMAL); Platelet Morphology Comment NORMAL; RBC Morphology NORMAL
[2021-02-23 14:21] LABS: Influenza A PCR NEGATIVE (Negative); Influenza B PCR NEGATIVE (Negative); Resp Syncy Virus RNA Qual PCR NEGATIVE (Negative); SARS COV2 PCR INHOUSE NEGATIVE (Negative)
[2021-02-23] MEDS: Insulin Glargine,Hum.rec.anlog 100 UNIT/ML 10 ML VIAL 8 UNIT SUBCUT (14:58)
[2021-02-23] MEDS: Azithromycin 500 MG in 0.9 % Sodium Chloride 250 ML 125 MG IV (14:58)
--- NOTE | 2021-02-23 15:05 | PC.NURSE ---
pt medicated with iv antibiotic per order
[2021-02-23 15:58] VITALS: BP 143/92; PULSE 95; RESP 18; O2SAT 94
== END 2021-02-23 17:35 | disposition home or self-care (01) ==
PROVIDERS: Emergency Provider Emergency Medicine; PCP Internal Medicine
DX: J18.9 Pneumonia, unspecified organism (principal); R06.02 Shortness of breath; E11.9 Type 2 diabetes mellitus without complications; I10 Essential (primary) hypertension; Z79.4 Long term (current) use of insulin; Z20.822 Contact with and (suspected) exposure to COVID-19; Z79.899 Other long term (current) drug therapy; Z87.891 Personal history of nicotine dependence
CPT/HCPCS: 0241U; 36415; 71046; 80048; 80076; 83605; 85007; 85027; 87040; 96361; 96365; 96366; 96368; 96375; 99284; 99285; J0456; J0696; J1885

== ENCOUNTER 2021-02-25 10:57 | Outpatient (REF) | payer MEDICAID, SELFPAY ==
--- NOTE | ~2021-02-25 | US_ITS ---
EXAMINATION: US CHEST CLINICAL INFORMATION: Check for left pleural effusion COMPARISON: Chest x-ray of February 23, 2021 TECHNIQUE: Targeted chest ultrasound FINDINGS: There is a small left pleural effusion present. No right pleural effusion is identified. US/US chest IMPRESSION: Small left pleural effusion.
== END 2021-02-25 10:58 | disposition home or self-care (01) ==
LOC: HO.US 10:57
PROVIDERS: PCP Internal Medicine; Visit Provider Internal Medicine
DX: Z13.89 Encounter for screening for other disorder (principal)
CPT/HCPCS: 76604

== ENCOUNTER 2021-08-02 09:57 | Emergency (ER) | payer MEDICAID, SELFPAY ==
--- NOTE | ~2021-08-02 | XR_ITS ---
EXAMINATION: XR chest 1V CLINICAL INFORMATION: Reason for Exam SOB COMPARISON: 02/23/2021 TECHNIQUE: XR chest 1V Tubes and lines: None Lungs and pleura: Diffuse increased interstitial lung marking and peribronchial cuffing might be a small airway disease such as bronchiolitis or interstitial pneumonitis, versus interstitial lung disease versus interstitial edema. No dense focal consolidation pneumonia. Blunting of left costophrenic angle suggesting small pleural effusion. Heart and mediastinum: The mediastinum is within normal limits.. Bones/soft tissue: Skeletal structures included are normal for patient's age. XR/XR chest 1V IMPRESSION: Newly developed diffuse increased interstitial lung marking and peribronchial cuffing might be a small airway disease such as bronchiolitis or interstitial pneumonitis, versus interstitial lung disease versus interstitial edema. No dense focal consolidation pneumonia. Blunting of left costophrenic angle suggesting small effusion.
[2021-08-02 10:29] VITALS: BP 193/118; PULSE 103; RESP 26; TEMP 36.2; O2SAT 92; BMI 38.2
--- NOTE | 2021-08-02 10:32 | ECG_ITS ---
Test Reason : SHORTNESS OF BREATH Blood Pressure : / mmHG Vent. Rate : 098 BPM Atrial Rate : 098 BPM P-R Int : 166 ms QRS Dur : 098 ms QT Int : 386 ms P-R-T Axes : 069 095 080 degrees QTc Int : 492 ms Normal sinus rhythm Right atrial enlargement Rightward axis Prolonged QT Abnormal ECG When compared with ECG of 17-FEB-2021 08:51, No significant change was found Referred By: Generic ED Physician Electronically Signed By:JOSÉ NEWBY MD
[2021-08-02 11:12] LABS: COVID-19 Test Negative (Negative)
== END 2021-08-02 16:59 | disposition left against medical advice (07) ==
PROVIDERS: Emergency Provider Emergency Medicine; PCP Internal Medicine
DX: R06.02 Shortness of breath (principal); R07.89 Other chest pain; Z20.822 Contact with and (suspected) exposure to COVID-19
CPT/HCPCS: 36415; 71045; 87635; 93005; 99283

== ENCOUNTER → 2021-12-01 11:07 | Outpatient (BNVA) | payer OTHER, SELFPAY | PROVIDERS: PCP Internal Medicine; Referring Provider Internal Medicine; Visit Provider Surgery | DX: Z13.89 Encounter for screening for other disorder (principal) ==

== ENCOUNTER 2022-03-10 14:09 | Outpatient (REF) | payer OTHER, SELFPAY ==
[2022-03-12 11:18] LABS: H Pylori Breath Test Positive (Negative)
== END 2022-03-10 14:10 | disposition home or self-care (01) ==
LOC: CF 14:09
PROVIDERS: PCP Internal Medicine; Visit Provider Physician Assistant Surgical
DX: E66.01 Morbid (severe) obesity due to excess calories (principal); Z68.41 Body mass index [BMI] 40.0-44.9, adult; Z71.3 Dietary counseling and surveillance
CPT/HCPCS: 36415; 83013; 99202; 99211; 99212

== ENCOUNTER → 2022-04-27 12:58 | Outpatient (REF) | payer OTHER, SELFPAY | LOC: HO.SL 12:58 | PROVIDERS: PCP Internal Medicine; Visit Provider Internal Medicine | DX: G47.33 Obstructive sleep apnea (adult) (pediatric) (principal); R40.0 Somnolence | CPT/HCPCS: 95806 ==

== ENCOUNTER 2022-06-08 10:47 | Emergency (ER) | payer OTHER, SELFPAY ==
[2022-06-08 11:38] VITALS: BP 176/87; PULSE 99; RESP 20; TEMP 36.6; O2SAT 96; BMI 42.0
== END 2022-06-08 22:47 | disposition left against medical advice (07) ==
PROVIDERS: Emergency Provider Emergency Medicine; PCP Internal Medicine
DX: H92.02 Otalgia, left ear (principal)
CPT/HCPCS: 99281

== ENCOUNTER 2023-06-15 16:44 | Emergency (ER) | payer MEDICAID, SELFPAY ==
--- NOTE | 2023-06-15 | ECG_ITS ---
Test Reason : CHEST PAIN Blood Pressure : / mmHG Vent. Rate : 091 BPM Atrial Rate : 091 BPM P-R Int : 184 ms QRS Dur : 092 ms QT Int : 362 ms P-R-T Axes : 066 088 052 degrees QTc Int : 445 ms Normal sinus rhythm Intra-ventricular conduction delay Right axis deviation Left atrial enlargement Abnormal ECG When compared with ECG of 02-AUG-2021 10:37, Nonspecific T wave abnormality no longer evident in Lateral leads Referred By: Axel Brewer Electronically Signed By:ASHLYN LEES MD
--- NOTE | 2023-06-15 16:46 | ED_ITS ---
HPI - Chest Pain General Chief Complaint: Dizziness Stated Complaint: chest pressure/dizzy x1 day, [id number] Time Seen by Provider: 06/15/23 16:45 Source: patient Mode of arrival: EMS Limitations: no limitations History of Present Illness HPI narrative: Patient diabetic been feeling dizzy/ vertiginous feeling for last few days today while at work felt more dizzy nauseated vomited 1 time. Also noticed chest discomfort at 13:00 which continue with bilateral weakness prior to arrival patient was feeling very dizzy and passed out no fall no lightheadedness no palpitation chest pain feels like pressure never had similar pain in the past no radiation of the pain in both week also been coughing occasionally Related Data Previous Rx's Medication Instructions Recorded blood-glucose meter #1 ea 12/02/20 pen needle, diabetic 31 gauge x #50 ea 01/29/2112/14 (1st Tier Unifine Pentips) fluticasone propionate 50 1 spray intranasal DAILY 14 days 09/09/21 mcg/actuation nasal #150 mL spray,suspension (Flonase Allergy Relief) blood sugar diagnostic #100 ea 10/06/21 lancets #100 ea 10/06/21 amlodipine 10 mg-benazepril 40 mg 1 cap PO DAILY 90 days #90 caps 05/18/22 capsule dulaglutide 1.5 mg/0.5 mL 1.5 mg (0.5 mL) subcut QWEEK 90 05/18/22 subcutaneous pen injector days #6.5 mL (Trulicity) metformin 500 mg tablet 500 mg PO BID 90 days #180 tabs 05/18/22 omeprazole 20 mg capsule,delayed 20 mg PO DAILY #28 caps 06/07/22 release varenicline 0.5 mg tablet 0.5 mg PO BID 30 days #60 tabs 06/09/22 insulin degludec 100 unit/mL (3 45 unit (0.45 mL) subcut QPM 90 09/22/22 mL) subcutaneous pen (Tresiba days #40.5 mL FlexTouch U-100 insulin) chlorthalidone 50 mg tablet 50 mg PO DAILY 90 days #90 tabs 11/21/22 pregabalin 75 mg capsule (Lyrica) 75 mg PO DAILY 90 days #90 caps 03/13/23 hydralazine 50 mg tablet 50 mg PO TID 90 days #270 tabs 03/17/23 escitalopram oxalate 20 mg tablet 20 mg PO DAILY 90 days #90 tabs 03/24/23 metoprolol succinate 50 mg 50 mg PO DAILY 90 days #90 tabs 03/28/23 tablet,extended release 24 hr albuterol sulfate 90 mcg/actuation 2 puff PO Q6H PRN for muscle spasm 05/20/23 aerosol inhaler (Ventolin HFA) #18 ea cyclobenzaprine 10 mg tablet 10 mg PO Q8H #20 tabs 06/15/23 meclizine 25 mg tablet 25 mg PO TID PRN dizziness #20 tabs 06/15/23 tramadol 50 mg tablet 50 mg PO Q6H PRN pain #20 tabs 06/15/23 Allergies Allergy/AdvReac Type Severity Reaction Status Date / Time kiwi [KIWI] Allergy Intermediate SCRATCHY Verified 06/15/23 16:58 THROAT/VOMITING Review of Systems 2 Review of Systems: Yes all other systems are reviewed and are negative PMFSH Past Medical History Medical History Essential hypertension Onychomycosis STD exposure Erectile dysfunction Obese Mild asthma Neuropathy GERD (gastroesophageal reflux disease) Hypertension Diabetes Diabetes mellitus, type 2 Surgical History History of hernia surgery Family History Family History Father Diabetes Hypertension Mother Alzheimer disease Social History Social History Housing: House Unable to assess alcohol history related to: Unknown Alcohol intake: never Patient Tobacco Use Status: Former Tobacco user Tobacco use type: Cigarette Cigarettes Per Day: 2 Smoked in Last 30 Days: No e-Cigarette/Vaping Use: Never Used Second Hand Smoke Exposure: No Use of substances other than those prescribed or required for medical reasons: No Advance Directives: No Advance Directives Information Provided: No service: No Current occupational status: employed Current occupational exposures/hazards: No Cognitive needs: No Hearing needs: No Vision needs: No Physical Exam 2 Vital Signs: Vital Signs: Last Vital Signs Temp 98.4 F 06/15/23 20:00 Pulse 93 06/15/23 20:00 Resp 16 06/15/23 20:00 BP 138/75 06/15/23 20:00 Pulse Ox 98 06/15/23 20:00 O2 Del Method Room Air 06/15/23 20:00 BMI result Body Mass Index 39.3 Appearance: Alert. Oriented X3. No acute distress. Eyes: PERRLA, No Nystagmus ENT: Pharynx normal. Oral Mucosa moist Neck: Normal inspection. Neck supple. CVS: Normal heart rate and rhythm. Pulses normal. Respiratory: No respiratory distress. Equal air entry bilateral, no wheezing/rales/rhonchi Abdomen: Soft and nontender. Bowel sounds are present, no mass palpable, no CVA tenderness Skin: Skin warm and dry. Normal skin color. Normal skin turgor. Extremities: No lower extremity edema. No calf tenderness Neuro: Oriented X 3. No motor deficit. No sensory deficit.No cerebellar signs , cranial nerves II-XII intact Medications Administered Discontinued Medications Generic Name Dose Route Start Last Admin Trade Name Freq PRN Reason Stop Dose Admin Aspirin 162 mg 06/15/23 17:19 06/15/23 17:36 Aspirin Enteric Coated 81 Mg Tablet.Dr PO 06/15/23 17:20 162 mg ONCE ONE Administration Sodium Chloride 1,000 mls @ 999 mls/hr 06/15/23 17:15 06/15/23 18:54 Ns IV 06/15/23 18:15 Infused .Q1H1M ONE Infusion Insulin Human Lispro 10 unit 06/15/23 17:51 06/15/23 17:36 Insulin Lispro 100 Unit/Ml 3 Ml Vial SUBCUT 06/15/23 17:52 10 unit ONCE ONE Administration Meclizine HCl 50 mg 06/15/23 17:19 06/15/23 17:36 Meclizine Hcl 25 Mg Tablet PO 06/15/23 17:20 50 mg ONCE ONE Administration Morphine Sulfate 4 mg 06/15/23 19:39 06/15/23 19:50 Morphine Sulfate 4 Mg/Ml Cartridge IVPUSH 06/15/23 19:40 4 mg ONCE ONE Administration Protocol Nitroglycerin 1 inch 06/15/23 17:19 06/15/23 17:36 Nitroglycerin 2 % Oint 1 Gm Packet TRANSDERMA 06/15/23 17:20 1 inch ONCE ONE Administration Medical Decision Making Medical Decision Making MDM Narrative: Patient with vertigo feeling with hyperglycemia with chest pain etiology chest pain is not very clear patient did have syncope episode. Initial EKG without any ischemic changes with the troponin give aspirin and apply nitropaste Differential Diagnosis Differential Diagnoses: The differential diagnosis associated with the presentation includes ACS/benign positional vertigo/vasovagal Admission/Observation Consideration of admission/observation: Escalation of care including admission/observation considered Lab Data MDM Lab Attestation statement: I reviewed the patient's lab results. 06/15/23 17:36 06/15/23 17:36 Labs: Lab Results 06/15/23 06/15/23 06/15/23 Range/Units 17:34 17:36 19:14 WBC 8.7 (4.8-10.8) X10*3/uL RBC 5.41 (4.60-5.80) X10*6/uL Hgb 14.1 (14.0-18.0) g/dl Hct 43.6 (42.0-52.0) % MCV 80.6 (80.0-98.0) fL MCH 26.1 L (27.0-33.0) pg MCHC 32.3 (31.0-36.0) g/dl RDW 12.2 (11.0-16.0) % Plt Count 318 (160-400) X10*3/uL MPV 9.8 (9.4-12.4) fL Immature Gran % (Auto) 0.2 (0.0-0.4) % Neut % (Auto) 74.2 H (45-73) % Lymph % (Auto) 18.7 L (20-40) % [place] % (Auto) 5.9 (2-11) % Eos % (Auto) 0.5 (0-4) % Baso % (Auto) 0.5 (0-2) % Lymph # (Auto) 1.6 (1.2-4.9) X10*3/uL [place] # (Auto) 0.5 (0.1-1.2) X10*3/uL Eos # (Auto) 0.0 (0.0-0.4) X10*3/uL Baso # (Auto) 0.0 (0.0-0.2) X10*3/uL Abs Immat Gran (auto) 0.02 (0.00-0.03) X10*3/uL Absolute Neuts (auto) 6.5 (2.0-8.3) x10*3/uL Absolute Nucleated RBC 0.000 (0.0-0.012) X10*3/uL Nucleated RBC % (auto) 0.0 (0.0-0.2) /100WBC PT 11.1 (11.1-13.3) SEC INR 0.9 (0.9-1.1) Sodium 134 L (135-145) mmol/L Potassium 3.9 (3.3-5.1) mmol/L Chloride 100 (96-108) mmol/L Carbon Dioxide 25 (22-29) mmol/L Anion Gap 13 (12-20) BUN 27 H (9-16) mg/dL Creatinine 1.27 (0.5-1.4) mg/dL Estim Creat Clear Calc 108.4 Estimated GFR > 60 POC Glucose 300 H 213 H (60-115) mg/dL Random Glucose 316 H (60-115) mg/dL Calcium 9.1 (8.4-10.2) mg/dL Total Bilirubin 0.5 (0.0-1.0) mg/dL AST 23 (5-37) U/L ALT 29 (0-40) U/L Alkaline Phosphatase 110 (39-117) U/L Troponin I High Sens 3.2 (<3.5-35.0) ng/L Total Protein 7.2 (6.5-8.0) g/dL Albumin 3.8 (3.5-5.0) g/dL COVID-19 (FAYE) Negative (Negative) COVID-19 Clin Com See Note 06/15/23 Range/Units 19:49 WBC (4.8-10.8) X10*3/uL RBC (4.60-5.80) X10*6/uL Hgb (14.0-18.0) g/dl Hct (42.0-52.0) % MCV (80.0-98.0) fL MCH (27.0-33.0) pg MCHC (31.0-36.0) g/dl RDW (11.0-16.0) % Plt Count (160-400) X10*3/uL MPV (9.4-12.4) fL Immature Gran % (Auto) (0.0-0.4) % Neut % (Auto) (45-73) % Lymph % (Auto) (20-40) % [place] % (Auto) (2-11) % Eos % (Auto) (0-4) % Baso % (Auto) (0-2) % Lymph # (Auto) (1.2-4.9) X10*3/uL [place] # (Auto) (0.1-1.2) X10*3/uL Eos # (Auto) (0.0-0.4) X10*3/uL Baso # (Auto) (0.0-0.2) X10*3/uL Abs Immat Gran (auto) (0.00-0.03) X10*3/uL Absolute Neuts (auto) (2.0-8.3) x10*3/uL Absolute Nucleated RBC (0.0-0.012) X10*3/uL Nucleated RBC % (auto) (0.0-0.2) /100WBC PT (11.1-13.3) SEC INR (0.9-1.1) Sodium (135-145) mmol/L Potassium (3.3-5.1) mmol/L Chloride (96-108) mmol/L Carbon Dioxide (22-29) mmol/L Anion Gap (12-20) BUN (9-16) mg/dL Creatinine (0.5-1.4) mg/dL Estim Creat Clear Calc Estimated GFR POC Glucose (60-115) mg/dL Random Glucose (60-115) mg/dL Calcium (8.4-10.2) mg/dL Total Bilirubin (0.0-1.0) mg/dL AST (5-37) U/L ALT (0-40) U/L Alkaline Phosphatase (39-117) U/L Troponin I High Sens 5.1 D (<3.5-35.0) ng/L Total Protein (6.5-8.0) g/dL Albumin (3.5-5.0) g/dL COVID-19 (FAYE) (Negative) COVID-19 Clin Com Independent Interpretation I performed an independent interpretation of an: EKG Interpretation: Normal sinus rhythm heart rate 91 beats per minute poor progression of R-wave in the anterior leads no acute ST T wave changes no acute ischemia Discharge Plan Discharge Clinical Impression: Benign paroxysmal positional vertigo, Diabetes mellitus with hyperglycemia, Chest pain Patient Disposition: Home, Self-Care Instructions: Chest Pain (ED), Benign Paroxysmal Positional Vertigo (ED), Diabetic Hyperglycemia (ED) Additional Instructions: Drink plenty of fluids, diet restrictions as advised Care and cautions as advised Continue medications as prescribed Tramadol for pain Prescriptions: New meclizine 25 mg tablet 25 mg PO TID PRN (Reason: dizziness) Qty: 20 0RF cyclobenzaprine 10 mg tablet 10 mg PO Q8H Qty: 20 0RF tramadol 50 mg tablet 50 mg PO Q6H PRN (Reason: pain) Qty: 20 0RF No Action (DME) pen needle, diabetic [1st Tier Unifine Pentips] 31 gauge x 5/16 needle See Rx Instructions .ROUTE .MEDSUPPLY Qty: 50 11RF Rx Instructions: use 1 pen needle once a day (DME) blood sugar diagnostic Strip See Rx Instructions .ROUTE .MEDSUPPLY Qty: 100 3RF Rx Instructions: Use 1 test strip twice a day (DME) lancets Misc See Rx Instructions .ROUTE .MEDSUPPLY Qty: 100 4RF Rx Instructions: Use 1 lancet twice a day omeprazole 20 mg capsule,delayed release(DR/EC) 20 mg PO DAILY Qty: 28 0RF varenicline 0.5 mg tablet 0.5 mg PO BID 30 Days Qty: 60 0RF Rx Instructions: administer on days 4, 5, 6, and 7 of therapy chlorthalidone 50 mg tablet 50 mg PO DAILY 90 Days Qty: 90 1RF pregabalin [Lyrica] 75 mg capsule 75 mg PO DAILY 90 Days Qty: 90 0RF hydralazine 50 mg tablet 50 mg PO TID 90 Days Qty: 270 1RF escitalopram oxalate 20 mg tablet 20 mg PO DAILY 90 Days Qty: 90 1RF metoprolol succinate 50 mg tablet extended release 24 hr 50 mg PO DAILY 90 Days Qty: 90 1RF albuterol sulfate [Ventolin HFA] 90 mcg/actuation HFA aerosol inhaler 2 puff PO Q6H PRN (Reason: for muscle spasm) Qty: 18 0RF (DME) blood-glucose meter Kit See Rx Instructions .ROUTE .MEDSUPPLY Qty: 1 0RF Rx Instructions: As directed amlodipine-benazepril 10-40 mg capsule 1 cap PO DAILY 90 Days Qty: 90 1RF Trulicity 1.5 mg/0.5 mL pen injector 1.5 mg subcut QWEEK 90 Days Qty: 6.5 1RF metformin 500 mg tablet 500 mg PO BID 90 Days Qty: 180 3RF fluticasone propionate [Flonase Allergy Relief] 50 mcg/actuation spray,suspension 1 spray intranasal DAILY 14 Days Qty: 150 0RF Rx Instructions: administer into each nostril insulin degludec [Tresiba FlexTouch U-100] 100 unit/mL (3 mL) insulin pen 45 unit subcut QPM 90 Days Qty: 40.5 3RF Stand Alone Forms: Work/School Release Interventions: ED Discharge Assessment Last Done: 06/15/23 20:42 Discharge Date/Time: 06/15/23 20:47
[2023-06-15 16:51] VITALS: BP 113/81; PULSE 94; O2SAT 98; BMI 39.3
[2023-06-15 17:15] VITALS: BP 132/77; PULSE 89; RESP 16; O2SAT 98
[2023-06-15] MEDS: Nitroglycerin 2 % Oint 1 GM Packet 1 INCH TRANSDERMA (17:36)
[2023-06-15] MEDS: Insulin Lispro 100 UNIT/ML 3 ML VIAL 10 UNIT SUBCUT (17:36)
[2023-06-15] MEDS: Meclizine HCl 25 MG TABLET 50 MG PO (17:36)
[2023-06-15] MEDS: Aspirin Enteric Coated 81 MG TABLET.DR 162 MG PO (17:36)
[2023-06-15 17:37] LABS: Glucose, Whole Blood 300 mg/dL (60-115)
[2023-06-15 17:45] LABS: MANUAL DIFF FLAG NO
[2023-06-15] MEDS: 0.9 % Sodium Chloride 1,000 ML 999 ML IV (17:47)
[2023-06-15 17:49] LABS: Basophils Percent Auto 0.5 % (0-2); Eosinophils Percent Auto 0.5 % (0-4); Hematocrit 43.6 % (42.0-52.0); Hemoglobin 14.1 g/dl (14.0-18.0); Imm Gran Abs Auto 0.02 X10*3/uL (0.00-0.03); Imm Gran Pct Auto 0.2 % (0.0-0.4); Lymphocytes Absolute Auto 1.6 X10*3/uL (1.2-4.9); Lymphocytes Percent Auto 18.7 % (20-40); Mean Corpuscular HGB Conc 32.3 g/dl (31.0-36.0); Mean Corpuscular Hemoglobin 26.1 pg (27.0-33.0); Mean Corpuscular Volume 80.6 fL (80.0-98.0); Mean Platelet Volume 9.8 fL (9.4-12.4); Monocytes Absolute Auto 0.5 X10*3/uL (0.1-1.2); Monocytes Percent Auto 5.9 % (2-11); Neutrophils Absolute Auto 6.5 x10*3/uL (2.0-8.3); Neutrophils Percent Auto 74.2 % (45-73); Platelet Count 318 X10*3/uL (160-400); Red Blood Count 5.41 X10*6/uL (4.60-5.80); Red Cell Distribution Width 12.2 % (11.0-16.0); White Blood Count 8.7 X10*3/uL (4.8-10.8)
[2023-06-15 18:03] LABS: INTERNATIONAL NORM RATIO 0.9 (0.9-1.1); Prothrombin Time 11.1 SEC (11.1-13.3)
[2023-06-15 18:11] LABS: Alanine Aminotransferase 29 U/L (0-40); Albumin Level 3.8 g/dL (3.5-5.0); Alkaline Phosphatase 110 U/L (39-117); Anion Gap 13 (12-20); Aspartate Amino Transferase 23 U/L (5-37); Bilirubin Total 0.5 mg/dL (0.0-1.0); Blood Urea Nitrogen 27 mg/dL (9-16); Calcium 9.1 mg/dL (8.4-10.2); Carbon Dioxide 25 mmol/L (22-29); Chloride 100 mmol/L (96-108); Creatinine Clr Calc Pharmacy 108.4; Estimated Glomerular Filt Rate > 60; Glucose Random 316 mg/dL (60-115); Potassium 3.9 mmol/L (3.3-5.1); Sodium 134 mmol/L (135-145); Total Protein 7.2 g/dL (6.5-8.0)
[2023-06-15 18:13] LABS: COVID-19 Test Negative (Negative); IDNOW Serial# 9DB6401D
[2023-06-15 18:18] LABS: Troponin-I High Sensitivity 3.2 ng/L (<3.5-35.0)
[2023-06-15 19:05] VITALS: BP 113/67; PULSE 87; RESP 18; TEMP 36.8; O2SAT 97
[2023-06-15 19:18] LABS: Glucose, Whole Blood 213 mg/dL (60-115)
--- NOTE | 2023-06-15 19:26 | PC.NURSE ---
At 19:05 this nurse spoke with MD regarding blood pressure of 113/67. Patient currently has 1 nitro paste on left side of chest and pain has decreased to 6/10. MD aware and would like paste removed. Approached patient and explained this, patient agrees and paste has been removed from chest.
[2023-06-15] MEDS: Morphine Sulfate 4 MG/ML CARTRIDGE IVPUSH (19:50)
[2023-06-15 20:00] VITALS: BP 138/75; PULSE 93; RESP 16; TEMP 36.9; O2SAT 98
[2023-06-15 20:14] LABS: Troponin-I High Sensitivity 5.1 ng/L (<3.5-35.0)
== END 2023-06-15 20:47 | disposition home or self-care (01) ==
PROVIDERS: Emergency Provider Internal Medicine; PCP Internal Medicine
DX: H81.13 Benign paroxysmal vertigo, bilateral (principal); R07.89 Other chest pain; R11.2 Nausea with vomiting, unspecified; E11.65 Type 2 diabetes mellitus with hyperglycemia; Z11.52 Encounter for screening for COVID-19; Z20.822 Contact with and (suspected) exposure to COVID-19; Z87.891 Personal history of nicotine dependence; Z79.899 Other long term (current) drug therapy; Z79.4 Long term (current) use of insulin
CPT/HCPCS: 36415; 80053; 82947; 84484; 85025; 85610; 87635; 93005; 96361; 96374; 99284; 99285; J2270

== ENCOUNTER 2023-08-31 09:54 | Emergency (ER) | payer OTHER, SELFPAY ==
[2023-08-31 10:01] VITALS: BP 177/117; PULSE 120; RESP 20; TEMP 38.1; O2SAT 93; BMI 41.8
--- NOTE | 2023-08-31 10:17 | PC.NURSE ---
nasal swabs obtained
[2023-08-31 10:36] LABS: COVID-19 Test Negative (Negative); IDNOW Serial# 08D9AD1C; IDNOW Serial# 152EDE1D; Influenza A Positive (Negative); Influenza B2 Negative (Negative)
[2023-08-31] MEDS: Acetaminophen 325 MG TABLET 975 MG PO (11:10)
--- NOTE | 2023-08-31 11:10 | PC.NURSE ---
patient a&ox3, c/o headache, pt medicated per order, call younger within reach, will continue to monitor
--- NOTE | 2023-08-31 11:10 | ED.GENADULT ---
HPI - General Adult General Chief complaint: Upper Respiratory Symptoms Stated complaint: Flu Symptoms Time Seen by Provider: 08/31/23 10:34 Source: patient Mode of arrival: ambulatory Limitations: no limitations History of Present Illness HPI narrative: Patient is a 38 yr old male with a past medical history of depression, chornic back pain, obesity, HTN, asthma, DM and GERD presenting with fever, headache, lightheadedness, cough, and muscle aches for 3 days sudden inonset. Highest fever was 100.8 at home. States that he overall feels horrible . Patient reports some improvement in his fever with Tylenol at home. Reports increased wheezing, but has had improvement with his albuterol inhaler at home. Denies cp, sob ear pain, ear discharge, vision changes, sinus pain, nausea, vomiting, abdominal pain, constipation, or diarrhea. Related Data Previous Rx's Medication Instructions Recorded blood-glucose meter #1 ea 12/02/20 pen needle, diabetic 31 gauge x #50 ea 01/29/2112/14 (1st Tier Unifine Pentips) fluticasone propionate 50 1 spray intranasal DAILY 14 days 09/09/21 mcg/actuation nasal #150 mL spray,suspension (Flonase Allergy Relief) blood sugar diagnostic #100 ea 10/06/21 lancets #100 ea 10/06/21 amlodipine 10 mg-benazepril 40 mg 1 cap PO DAILY 90 days #90 caps 05/18/22 capsule metformin 500 mg tablet 500 mg PO BID 90 days #180 tabs 05/18/22 varenicline 0.5 mg tablet 0.5 mg PO BID 30 days #60 tabs 06/09/22 insulin degludec 100 unit/mL (3 45 unit (0.45 mL) subcut QPM 90 09/22/22 mL) subcutaneous pen (Tresi #40.5 mL FlexTouch U-100 insulin) chlorthalidone 50 mg tablet 50 mg PO DAILY 90 days #90 tabs 11/21/22 hydralazine 50 mg tablet 50 mg PO TID 90 days #270 tabs 03/17/23 escitalopram oxalate 20 mg tablet 20 mg PO DAILY 90 days #90 tabs 03/24/23 metoprolol succinate 50 mg 50 mg PO DAILY 90 days #90 tabs 03/28/23 tablet,extended release 24 hr albuterol sulfate 90 mcg/actuation 2 puff PO Q6H PRN for muscle spasm 05/20/23 aerosol inhaler (Ventolin HFA) #18 ea cyclobenzaprine 10 mg tablet 10 mg PO Q8H #20 tabs 06/15/23 meclizine 25 mg tablet 25 mg PO TID PRN dizziness #20 tabs 06/15/23 tramadol 50 mg tablet 50 mg PO Q6H PRN pain #20 tabs 06/15/23 pregabalin 75 mg capsule (Lyrica) 75 mg PO DAILY 90 days #90 caps 06/21/23 dulaglutide 1.5 mg/0.5 mL 1.5 mg (0.5 mL) subcut QWEEK 90 08/18/23 subcutaneous pen injector days #6.5 mL (Trulicity) omeprazole 20 mg capsule,delayed 20 mg PO DAILY #28 caps 08/18/23 release albuterol sulfate 90 mcg/actuation 2 inh inhalation Q4-6H PRN 08/31/23 breath activated powder inhaler shortness of breath or wheezing #1 ea benzonatate 100 mg capsule 100 mg PO BID PRN cough #20 caps 08/31/23 lidocaine 5 % topical patch 1 patch topical DAILY PRN pain #15 08/31/23 ea prednisone 50 mg tablet 50 mg PO DAILY 5 days #5 tabs 08/31/23 Allergies Allergy/AdvReac Type Severity Reaction Status Date / Time kiwi [KIWI] Allergy Intermediate SCRATCHY Verified 06/15/23 16:58 THROAT/VOMITING Review of Systems Review of Systems: Constitutional : No Weight loss, + Fever, + Chills, + Fatigue, + Malaise ENT/Mouth : No sore throat, + Rhinorrhea Eyes: No Eye Pain, No Swelling, No Redness Cardiovascular : No Chest Pain, No SOB, No Dyspnea on Exertion, No Orthopnea, No Edema, No Palpitations Respiratory : + Cough, No Sputum, + Wheezing Gastrointestinal : No Nausea, No Vomiting, No Diarrhea, No Constipation, No abdominal Pain, No Hematochezia, No Melena Genitourinary : No Dysuria, No Urinary Frequency, No Hematuria, Musculoskeletal : No joint pain, No Myalgias, No Joint Swelling Skin : No Skin Lesions, No rash Neuro : No Weakness, No Numbness, + Dizziness, + Headache Psych : No Anxiety/Panic, No Depression Heme/Lymph: No Bruising, No Bleeding,No Lymphadenopathy Endocrine : No Polyuria, No Polydipsia All other systems reviewed and are negative Yes all other systems are reviewed and are negative [facility] Past Medical History Attestation statement: The following information was validated with the patient. Source: old records reviewed and nursing notes reviewed Medical History Essential hypertension Onychomycosis STD exposure Erectile dysfunction Obese Mild asthma Neuropathy GERD (gastroesophageal reflux disease) Hypertension Diabetes Diabetes mellitus, type 2 Surgical History History of hernia surgery Family History Family History Father Diabetes Hypertension Mother Alzheimer disease Social History Social History Housing: House Unable to assess alcohol history related to: Unknown Alcohol intake: never Patient Tobacco Use Status: Former Tobacco user Tobacco use type: Cigarette Cigarettes Per Day: 2 e-Cigarette/Vaping Use: Never Used Second Hand Smoke Exposure: No Advance Directives: No Advance Directives Information Provided: No service: No Current occupational status: employed Current occupational exposures/hazards: No Cognitive needs: No Hearing needs: No Vision needs: No Physical Exam ED Vital Signs: Vital Signs - 24 hr 08/31/23 10:01 Temperature 100.5 F H Pulse Rate 120 H Respiratory Rate 20 Blood Pressure 177/117 H Pulse Oximetry 93 Oxygen Delivery Method Room Air BMI result Body Mass Index 41.8 vss for hypertension, tachycardia and low grade fever Appearance: Alert.? Oriented X3.? No acute distress.? Head: Normocephalic, atraumatic, no step-offs or deformities Eyes: Pupils equal, round and reactive to light.? Neck: Normal inspection.? Neck supple.? CVS: Tachycardia. Normal rhythm.? Pulses normal.? Respiratory: No respiratory distress.? Breath sounds normal.?No wheezing. Abdomen: Soft and nontender.? Skin: Skin warm and dry.? Normal skin color.? Normal skin turgor.? Extremities: No lower extremity edema.? No calf ttp. 5/5 strength to bilateral upper and lower extremities Back: No midline tenderness, no C-spine tenderness, full range of motion, no CVA tenderness bilaterally Neuro: Oriented X 3.? No motor deficit.? No sensory deficit. CN 2-12 intact . Ambulatory with steady gait normal coordination. Course Reevaluation(s) Reevaluation #1: Serology positive for Influenza A. Patient given Tylenol for fever. Time: 11:25 Reevaluation #2: Patient to be discharged home with supportive measures. No indication for emilia flu sx > 48 hours. Will also send prednisone as patient has history of asthma and has been wheezing at home. Educated patient on diagnosis and treatment plan, answered all question, patient verbalizes understanding. At this time patient will be discharged home, advised to return with new or worsening symptoms. Educated on worrisome signs and symptoms and when to return. At this time I feel comfortable discharge home. Time: 12:13 Medications Administered Discontinued Medications Generic Name Dose Route Start Last Admin Trade Name Freq PRN Reason Stop Dose Admin Acetaminophen 975 mg 08/31/23 10:34 08/31/23 11:10 Acetaminophen 325 Mg Tablet PO 08/31/23 10:35 975 mg ONCE ONE Administration Medical Decision Making Medical Decision Making [facility] Narrative: Patient is a 38 yr old male presenting with fever, headache, dizziness, cough, rhinorrhea, myalgias, and malaise for 3 days. PE significant for tachycardia. Pulmonary exam overall benign. Most likely URI vs COVID vs influenza vs RSV. Unlikely pneumonia, sinusitis, OM, sepsis, asthma exacerbation, meningitis, encephalitis, PE, acute respiratory distress, ich, stroke, posterior stroke, cord compression, cauda equina. Plan Tylenol for fever, labs. Differential Diagnosis Differential Diagnoses: The differential diagnosis associated with the presentation includes Most likely URI vs COVID vs influenza vs RSV. Unlikely pneumonia, sinusitis, OM, sepsis, asthma exacerbation, meningitis, encephalitis, PE, acute respiratory distress, ich, stroke, posterior stroke, cord compression, cauda equina. Admission/Observation Consideration of admission/observation: Escalation of care including admission/observation considered Not needed. Lab Data [facility] Lab Attestation statement: I reviewed the patient's lab results. Serology positive for Influenza A. Negative for COVID and Influenza B. Labs: Lab Results 08/31/23 Range/Units 10:16 COVID-19 (FAYE) Negative (Negative) COVID-19 Clin Com See Note Influenza Type A (SERA) Positive A (Negative) Influenza Type B (SERA) Negative (Negative) Influenza A & B Note See Note External Record Review External record reviewed: Inpatient record, Office record, Outpatient record and Primary care record Chronic Conditions Patient?s care impacted by: Diabetes and Hypertension Core Measures AMI core measures followed: Yes Critical Care Time Critical Care Time Critical Care Time: No Discharge Plan Discharge Clinical Impression: Influenza A, Headache, Cough, Dizziness, Asthma Patient Disposition: Home, Self-Care Instructions: Influenza (ED), Influenza (DC) Additional Instructions: Take your medications as prescribed. If you were prescribed antibiotics today, it is important that you take your medication to their entirety, do not skip any doses, do not finish them early. Follow-up with your primary care provider this week. Return to the emergency department with new or worsening symptoms. In case of emergency call 911 Prescriptions: New albuterol sulfate 90 mcg/actuation aerosol powdr breath activated 2 inh inhalation Q4-6H PRN (Reason: shortness of breath or wheezing) Qty: 1 0RF benzonatate 100 mg capsule 100 mg PO BID PRN (Reason: cough) Qty: 20 0RF lidocaine 5 % adhesive patch,medicated 1 patch topical DAILY PRN (Reason: pain) Qty: 15 0RF Rx Instructions: leave on most painful area for up to 12 hrs prednisone 50 mg tablet 50 mg PO DAILY 5 Days Qty: 5 0RF No Action (DME) pen needle, diabetic [1st Tier Unifine Pentips] 31 gauge x 5/16 needle See Rx Instructions .ROUTE .MEDSUPPLY Qty: 50 11RF Rx Instructions: use 1 pen needle once a day (DME) blood sugar diagnostic Strip See Rx Instructions .ROUTE .MEDSUPPLY Qty: 100 3RF Rx Instructions: Use 1 test strip twice a day (DME) lancets Mis See Rx Instructions .ROUTE .MEDSUPPLY Qty: 100 4RF Rx Instructions: Use 1 lancet twice a day varenicline 0.5 mg tablet 0.5 mg PO BID 30 Days Qty: 60 0RF Rx Instructions: administer on days 4, 5, 6, and 7 of therapy chlorthalidone 50 mg tablet 50 mg PO DAILY 90 Days Qty: 90 1RF hydralazine 50 mg tablet 50 mg PO TID 90 Days Qty: 270 1RF escitalopram oxalate 20 mg tablet 20 mg PO DAILY 90 Days Qty: 90 1RF metoprolol succinate 50 mg tablet extended release 24 hr 50 mg PO DAILY 90 Days Qty: 90 1RF albuterol sulfate [Ventolin HFA] 90 mcg/actuation HFA aerosol inhaler 2 puff PO Q6H PRN (Reason: for muscle spasm) Qty: 18 0RF pregabalin [Lyrica] 75 mg capsule 75 mg PO DAILY 90 Days Qty: 90 0RF Trulicity 1.5 mg/0.5 mL pen injector 1.5 mg subcut QWEEK 90 Days Qty: 6.5 1RF omeprazole 20 mg capsule,delayed release(DR/EC) 20 mg PO DAILY Qty: 28 0RF (DME) blood-glucose meter Kit See Rx Instructions .ROUTE .MEDSUPPLY Qty: 1 0RF Rx Instructions: As directed meclizine 25 mg tablet 25 mg PO TID PRN (Reason: dizziness) Qty: 20 0RF cyclobenzaprine 10 mg tablet 10 mg PO Q8H Qty: 20 0RF tramadol 50 mg tablet 50 mg PO Q6H PRN (Reason: pain) Qty: 20 0RF amlodipine-benazepril 10-40 mg capsule 1 cap PO DAILY 90 Days Qty: 90 1RF metformin 500 mg tablet 500 mg PO BID 90 Days Qty: 180 3RF fluticasone propionate [Flonase Allergy Relief] 50 mcg/actuation spray,suspension 1 spray intranasal DAILY 14 Days Qty: 150 0RF Rx Instructions: administer into each nostril insulin degludec [Tresiba FlexTouch U-100] 100 unit/mL (3 mL) insulin pen 45 unit subcut QPM 90 Days Qty: 40.5 3RF Referrals: Jodee Rich MD [Primary Care Provider] - 2 days Stand Alone Forms: Work/School Release Interventions: ED Discharge Assessment Last Done: 08/31/23 11:45 Discharge Date/Time: 08/31/23 11:58
== END 2023-08-31 11:58 | disposition home or self-care (01) ==
PROVIDERS: Physician Assistant; Emergency Provider Emergency Medicine Emergency Medical Services; PCP Internal Medicine
DX: J10.1 Influenza due to other identified influenza virus with other respiratory manifestations (principal); R50.9 Fever, unspecified; Z11.52 Encounter for screening for COVID-19; R51.9 Headache, unspecified; R05.9 Cough, unspecified; J45.909 Unspecified asthma, uncomplicated; R42 Dizziness and giddiness
CPT/HCPCS: 87502; 87635; 99283

== ENCOUNTER 2023-10-13 17:08 | Outpatient (AMB) | payer OTHER, SELFPAY ==
--- NOTE | 2023-10-13 17:11 | A.OFFPC_ITS ---
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 Accompanied by: Self / Same As Patient Allergies kiwi [KIWI] Allergy (Intermediate, Verified 10/13/23 17:26) SCRATCHY THROAT/VOMITING Medication List - Last Reconciled 10/13/23 by Jodee Berry MD albuterol sulfate 90 mcg/actuation 2 inhalations inhalation Q4-6H PRN albuterol sulfate 90 mcg/actuation (Ventolin HFA) 2 puffs PO Q6H PRN amlodipine-benazepril 10-40 mg 1 cap PO DAILY 90 days blood sugar diagnostic Use 1 test strip twice a day blood-glucose meter As directed chlorthalidone 50 mg PO DAILY 90 days dulaglutide (Trulicity) 1.5 mg (0.5 mL) subcut QWEEK 90 days escitalopram oxalate 20 mg PO DAILY 90 days fluticasone propionate 50 mcg/actuation (Flonase Allergy Relief) 1 spray intranasal DAILY 14 days hydralazine 50 mg PO TID 90 days insulin degludec (Tresiba FlexTouch U-100 insulin) 45 units (0.45 mL) subcut QPM 90 days lancets Use 1 lancet twice a day lidocaine 5% 1 patch topical DAILY PRN meclizine 25 mg PO TID PRN metformin 500 mg PO BID 90 days metoprolol succinate ER 50 mg PO DAILY 90 days omeprazole 20 mg PO DAILY pen needle, diabetic (1st Tier Unifine Pentips) use 1 pen needle once a day pregabalin (Lyrica) 75 mg PO DAILY 90 days Tobacco use date assessed: 10/13/23 Dental Screening Dental Screen Date: 10/13/23 Did you have a dental visit in the last 12 months?: No Did you have a dental problem in the last 6 months where you did not have access to dental care?: No Was dental information given to patient?: Patient has dentist HPI HPI Comments History of Present Illness Details This is a 38 year old male with mild recurrent major depression, morbid obesity, diabetes mellitus type 2 and hypertension. Depression is stable with Escitalopram. He is morbidly obese with BMI of 42.6 and was advise to do diet and exercise. A1c elevated and he has been out of Trulicity for over a month. I will change it to Ozempic. I will also increase Insulin. BP stable with medications. No chest pain or shortness of breath. [facility] Medical History Essential hypertension Onychomycosis STD exposure Erectile dysfunction Obese Mild asthma Neuropathy GERD (gastroesophageal reflux disease) Hypertension Diabetes Diabetes mellitus, type 2 Surgical History History of hernia surgery Family History Father Diabetes Hypertension Mother Alzheimer disease Social History Housing: House Unable to assess alcohol history related to: Unknown Alcohol intake: never Patient Tobacco Use Status: Current someday Tobacco user Tobacco use type: Cigarette Cigarettes Per Day: 2 e-Cigarette/Vaping Use: Never Used Second Hand Smoke Exposure: No service: No Current occupational status: employed Current occupational exposures/hazards: No Cognitive needs: No Hearing needs: No Vision needs: No Questionnaire PHQ-9 Over the last 2 weeks, how often have you been bothered by any of the following problems? 1. Little interest or pleasure in doing things: not at all 2. Feeling down, depressed, or hopeless: not at all 3. Trouble falling or staying asleep, or sleeping too much: more than half the days 4. Feeling tired or having little energy: more than half the days 5. Poor appetite or overeating: not at all 6. Feeling bad about yourself - or that you are a failure or have let yourself or your family down: not at all 7. Trouble concentrating on things, such as reading the newspaper or watching t elevision: not at all 8. Moving or speaking so slowly that other people could have noticed. Or the opposite - being so fidgety or restless that you have been moving around a lot more than usual: not at all 9. Thoughts that you would be better off or of hurting yourself in some way: not at all Total score: 4 Depression Screening Interpretation: Positive Depression Screening Follow-up: Existing condition and In treatment Depression Screening Done: Yes 62355 - PHQ-9 Billing: Yes Source: Developed by Drs. Kwasi Harrison, Wendi Thomas, Eric Carlson and colleagues, with an educational musa from [employer]. Thrive Questionnaire Date Thrive assessed: 10/13/23 I am a: Patient What is your living situation today?: I have a steady place to live Within the past 12 months, did the food you bought not last and you didn't have the money to get more?: Never true Within the past 12 months, did you worry whether your food would run out before you got money to buy more?: Never true Do you have trouble paying for medicines?: No Do you have trouble getting transportation to medical appointments?: No Do you have trouble paying your heating and electricity bill?: No Do you have trouble taking care of your child, family member or friend?: No Do you have trouble with day-to-day activities such as bathing, preparing meals, shopping, managing finances, etc.?: No Are you currently unemployed and looking for a job?: No Are you interested in more education?: No Please select the resources that you would like help with: None Currently or been in a relationship where the following occur: no concerns reported THRIVE Score: 0 AUDIT C Alcohol Use Questionnaire (AUDIT-C) 1. How often do you have a drink containing alcohol?: Monthly or less 2. How many drinks containing alcohol do you have on a typical day when you are drinking?: 1 or 2 3. How often do you have six or more drinks on one occasion?: Never Total Score: 1 MAUREEN-7 AMB Questionnaire MAUREEN-7 Date MAUREEN - 7 assessed: 10/13/23 Feeling nervous, anxious, or on edge: 1 = Several days Not being able to stop or control worryin = Not at all Worrying too much about different things: 1 = Several days Trouble relaxin = Not at all Being so restless that it is hard to sit still: 0 = Not at all Becoming easily annoyed or irritable: 0 = Not at all Feeling afraid as if something awful might happen: 0 = Not at all Total MAUREEN-7 score (0-4 normal; 5-9 mild; 10-14 moderate; 15-21 severe): 2 Source: Developed by Drs. Kwasi Harrison, Wendi Thomas, Eric Carlson and colleagues, with an educational musa from [employer]. MAUREEN-7 Assessment Billing MAUREEN-7 Assessment Tool: MAUREEN-7 Assessment 81737 Review of Systems Const All systems reviewed & are unremarkable except as noted in HPI and below Eyes Reports no additional complaints, Denies change in vision and Denies other visual disturbances Card Denies chest pain at rest, Denies chest pain with activity, Denies edema, Denies irregular heart rhythm, Denies claudication, Denies dyspnea, Denies dyspnea on exertion, Denies orthopnea, Denies paroxysmal nocturnal dyspnea and Denies slow heart rate Resp Denies cough, Denies dyspnea and Denies dyspnea on exertion GI Denies abdominal pain, Denies change in bowel habits, Denies excessive flatus, Denies nausea and Denies vomiting Denies urinary hesitancy, Denies urinary incontinence and Denies urinary urgency Musc Denies abnormal gait, Denies atrophy, Denies deformity and Denies limited range of motion Skin/Breast Denies bleeding lesions, Denies changing lesions and Denies rash Neuro Denies abnormal gait and Denies lack of coordination Physical exam (Primary Care) Vital Signs: Last Vital Signs BP 140/90 H 10/13/23 17:13 BMI result Body Mass Index 42.6 Tobacco/Smoking Status: Tobacco use Status Tobacco use date assessed 10/13/23 10/13/23 17:19 Patient Tobacco Use Status Current someday Tobacco 10/13/23 17:19 Tobacco use type Cigarette 10/13/23 17:12 e-Cigarette/Vaping Use Never Used 10/13/23 17:12 PHQ-9: PHQ-9 Score PHQ-9: Total score 4 10/13/23 17:26 Depression Screening Interpretation: Positive Depression Screening Follow-up: Existing condition and In treatment Thrive Assessment: Date of Thrive Assessment Date Thrive assessed 10/13/23 10/13/23 17:19 Currently or been in a relationship where the following occur: no concerns reported Eyes General: appearance normal, both eyes and all related structures Eyelids: Yes eyelids normal Conjunctivae: conjunctivae normal Neck Neck: Yes normal visual inspection and Yes supple Resp Effort & Inspection: normal respiratory effort Auscultation: clear to auscultation bilaterally Cardio Jugular venous distension: no JVD Rate: regular rate Rhythm: regular rhythm Heart sounds: S1 normal heart sound present and S2 normal heart sound present GI Inspection: Yes normal to inspection Palpation (GI): Soft to palpation and nontender Auscultation: normal bowel sounds Skin General skin exam: no rashes or lesions noted Extrem General: Yes full ROM Results AMB Hemoglobin A1c AMB Hemoglobin A1c 10.7 % Last Edit by CHERRY Cerda on 10/13/23 17: 22 Results Reviewed Results Reviewed: Laboratory Last Values Hgb A1c (Clinic) 10.7 % (4.0-6.0) H 10/13/23 17:21 Assessment and Plan Assessment & Plan (1) Mild recurrent major depression: Code(s): F33.0 - Major depressive disorder, recurrent, mild Plan: Continue Escitalopram. (2) Morbid obesity with BMI of 40.0-44.9, adult: Code(s): E66.01 - Morbid (severe) obesity due to excess calories; Z68.41 - Body mass index [BMI] 40.0-44.9, adult Plan: Advise to do diet and exercise. BMI goal is less than 30. (3) Diabetes mellitus, type 2: Code(s): E11.9 - Type 2 diabetes mellitus without complications Plan: Increase insulin. Discontinue Trulicity. A1c goal is equal or less than 7%. (4) Essential hypertension: Code(s): I10 - Essential (primary) hypertension Plan: Continue amlodipine-benazepril. BP goal is equal or less than 130/80. Orders: Orders Comprehensive [place]. Panel Fast 10/13/23 E11.9 - Type 2 diabetes mellitus without complications AMB Hemoglobin A1c 10/13/23 E11.9 - Type 2 diabetes mellitus without complications Lipid Panel 10/13/23 E78.5 - Hyperlipidemia, unspecified Microalbumin, Random (w Creat) 10/13/23 E11.9 - Type 2 diabetes mellitus without complications Medications: New semaglutide (Ozempic) for 4 weeks 0.25 mg (0.368 mL) subcut QWEEK 30 days 1.84 mL 0RF Changed From insulin degludec (Tresiba FlexTouch U-100 insulin) 45 units (0.45 mL) subcut QPM 90 days 40.5 mL 3RF E11.9 - Type 2 diabetes mellitus without complications To insulin degludec (Tresiba FlexTouch U-100 insulin) 50 units (0.5 mL) subcut QPM 90 days 45 mL 3RF E11.9 - Type 2 diabetes mellitus without complications From escitalopram oxalate 20 mg PO DAILY 90 days 90 tabs 1RF To escitalopram oxalate 20 mg PO BEDTIME 90 days 90 tabs 1RF Refilled hydralazine 50 mg PO TID 90 days 270 tabs 1RF metformin 500 mg PO BID 90 days 180 tabs 3RF metoprolol succinate ER 50 mg PO DAILY 90 days 90 tabs 1RF pen needle, diabetic (1st Tier Unifine Pentips) use 1 pen needle once a day 50 ea 11RF E11.65 - Type 2 diabetes mellitus with hyperglycemia, Z79.4 - [facility] (current) use of insulin amlodipine-benazepril 10-40 mg 1 cap PO DAILY 90 days 90 caps 1RF chlorthalidone 50 mg PO DAILY 90 days 90 tabs 1RF fluticasone propionate 50 mcg/actuation (Flonase Allergy Relief) administer into each nostril 1 spray intranasal DAILY 14 days 150 mL 0RF J32.9 - Chronic sinusitis, unspecified omeprazole 20 mg PO DAILY 28 caps 0RF Discontinued dulaglutide (Trulicity) Discontinued Reason: Patient Completed Course 1.5 mg (0.5 mL) subcut QWEEK 90 days 6.5 mL 1RF Coding Level of Care Code Est Pt Level 4 (86036) Diagnoses Mild recurrent major depression F33.0 Morbid obesity with BMI of 40.0-44.9, adult E66.01; Z68.41 Diabetes mellitus, type 2 E11.9 Essential hypertension I10 Additional Codes MAUREEN-7 Assessment Billing - MAUREEN-7 Assessment Tool: MAUREEN-7 Assessment 54090 ([id number]) Time Spent (min) 25
[2023-10-13 17:13] VITALS: BP 140/90; BMI 42.6
== END 2023-10-13 17:34 | disposition home or self-care (01) ==
PROVIDERS: PCP Internal Medicine; Visit Provider Internal Medicine
DX: E11.9 Type 2 diabetes mellitus without complications (principal); I10 Essential (primary) hypertension; F33.0 Major depressive disorder, recurrent, mild
CPT/HCPCS: 83036; 99214

== ENCOUNTER 2023-10-19 10:38 | Outpatient (REF) | payer OTHER, SELFPAY ==
[2023-10-19 12:38] LABS: Alanine Aminotransferase 17 U/L (0-40); Albumin Level 4.2 g/dL (3.5-5.0); Alkaline Phosphatase 115 U/L (39-117); Anion Gap 13 (12-20); Aspartate Amino Transferase 17 U/L (5-37); Bilirubin Total 1.3 mg/dL (0.0-1.0); Blood Urea Nitrogen 20 mg/dL (9-16); Calcium 9.5 mg/dL (8.4-10.2); Carbon Dioxide 28 mmol/L (22-29); Chloride 99 mmol/L (96-108); Cholesterol 209 mg/dL (<200); Estimated Glomerular Filt Rate 59; Glucose Fasting 125 mg/dL (60-99); HDL Cholesterol 55 mg/dL (>40); LDL Cholesterol Calculated 124 mg/dL (<100); Potassium 4.3 mmol/L (3.3-5.1); Sodium 136 mmol/L (135-145); Total Protein 7.7 g/dL (6.5-8.0); Triglycerides 151 mg/dL (<150)
== END 2023-10-19 10:39 | disposition home or self-care (01) ==
LOC: HO.LAB 10:38
PROVIDERS: PCP Internal Medicine; Visit Provider Internal Medicine
DX: E11.9 Type 2 diabetes mellitus without complications (principal); E78.5 Hyperlipidemia, unspecified
CPT/HCPCS: 36415; 80053; 80061; 82043; 82570

== ENCOUNTER 2023-11-11 23:40 | Emergency (ER) | payer OTHER, SELFPAY ==
--- NOTE | ~2023-11-11 | XR_ITS ---
EXAMINATION: XR CHEST CLINICAL INFORMATION: Overdose. COMPARISON: 08/02/2021 TECHNIQUE: Frontal view of the chest was obtained. FINDINGS: No significant abnormality is noted involving the heart, lungs, mediastinum, bony thorax or soft tissues. XR/XR chest 1V IMPRESSION: Unremarkable examination.
[2023-11-11 23:55] VITALS: BP 140/79; BP 189/119; PULSE 108; PULSE 111; RESP 16; TEMP 37; O2SAT 94; O2SAT 96; BMI 43.8
[2023-11-12 00:01] VITALS: BP 140/79; PULSE 108; RESP 16; TEMP 37; O2SAT 94
[2023-11-12 00:09] LABS: Glucose, Whole Blood 222 mg/dL (60-115)
--- NOTE | 2023-11-12 00:11 | ED_ITS ---
HPI - Overdose General Chief Complaint: Overdose Stated Complaint: overdose Time Seen by Provider: 11/11/23 23:48 Source: patient and old records reviewed Mode of arrival: EMS Limitations: no limitations History of Present Illness HPI Narrative: 38 yo male with PMH of depression, HTN, DM, anxiety, asthma, obesity, found at home overdose with pinpoint pupils and given 4mg IN narcan with good response. No trauma no SI. Does not want SUDE or detox. He admits to taking 2 blue oxy earlier and smoking THC. 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) Context: Accidental Overdose: wanted to get high Treatments Prior to Arrival: narcan (4mg IN) Related Data Previous Rx's ?Medication ?Instructions ?Recorded blood-glucose meter #1 ea 12/02/20 blood sugar diagnostic #100 ea 10/06/21 lancets #100 ea 10/06/21 albuterol sulfate 90 mcg/actuation 2 puff PO Q6H PRN for muscle spasm 05/20/23 aerosol inhaler (Ventolin HFA) #18 ea meclizine 25 mg tablet 25 mg PO TID PRN dizziness #20 tabs 06/15/23 pregabalin 75 mg capsule (Lyrica) 75 mg PO DAILY 90 days #90 caps 06/21/23 albuterol sulfate 90 mcg/actuation 2 inh inhalation Q4-6H PRN 08/31/23 breath activated powder inhaler shortness of breath or wheezing #1 ea lidocaine 5 % topical patch 1 patch topical DAILY PRN pain #15 08/31/23 ea amlodipine 10 mg-benazepril 40 mg 1 cap PO DAILY 90 days #90 caps 10/13/23 capsule chlorthalidone 50 mg tablet 50 mg PO DAILY 90 days #90 tabs 10/13/23 escitalopram oxalate 20 mg tablet 20 mg PO BEDTIME 90 days #90 tabs 10/13/23 fluticasone propionate 50 1 spray intranasal DAILY 14 days 10/13/23 mcg/actuation nasal #150 mL spray,suspension (Flonase Allergy Relief) hydralazine 50 mg tablet 50 mg PO TID 90 days #270 tabs 10/13/23 insulin degludec 100 unit/mL (3 50 unit (0.5 mL) subcut QPM 90 10/13/23 mL) subcutaneous pen (Tresiba days #45 mL FlexTouch U-100 insulin) metformin 500 mg tablet 500 mg PO BID 90 days #180 tabs 10/13/23 metoprolol succinate 50 mg 50 mg PO DAILY 90 days #90 tabs 10/13/23 tablet,extended release 24 hr omeprazole 20 mg capsule,delayed 20 mg PO DAILY #28 caps 10/13/23 release pen needle, diabetic 31 gauge x #50 ea 10/13/2312/14 (1st Tier Unifine Pentips) semaglutide 0.25 mg or 0.5 mg (2 0.25 mg (0.368 mL) subcut QWEEK 30 10/13/23 mg/3 mL) subcutaneous pen injector days #1.84 mL (Ozempic) atorvastatin 20 mg tablet 20 mg PO BEDTIME 90 days #90 tabs 10/19/23 semaglutide 0.25 mg or 0.5 mg (2 0.5 mg (0.736 mL) subcut QWEEK 30 11/09/23 mg/3 mL) subcutaneous pen injector days #3.68 mL (Ozempic) Allergies Allergy/AdvReac Type Severity Reaction Status Date / Time kiwi [KIWI] Allergy Intermediate SCRATCHY Verified 11/11/23 23:57 THROAT/VOMITING Review of Systems Review of Systems: Constitutional : No Fever, No Chills, No Fatigue ENT/Mouth : No sore throat, No Rhinorrhea Eyes: No Eye Pain, No Swelling, No Redness Cardiovascular : No Chest Pain, No SOB, No Dyspnea on Exertion Respiratory : No Cough, No Sputum Gastrointestinal : No Nausea, No Vomiting, No Diarrhea, No abdominal Pain Genitourinary : No Dysuria, No Urinary Frequency, No Hematuria, Musculoskeletal : No joint pain, No Myalgias, No Joint Swelling Skin : No Skin Lesions, No rash Neuro : No Weakness, No Numbness, No Dizziness, no Headache Psych : No Anxiety/Panic, No Depression, no SI All other systems reviewed and are negative [facility] Past Medical History Attestation statement: The following information was validated with the patient. Source: old records reviewed Medical History Essential hypertension Onychomycosis STD exposure Erectile dysfunction Obese Mild asthma Neuropathy GERD (gastroesophageal reflux disease) Hypertension Diabetes Diabetes mellitus, type 2 Surgical History History of hernia surgery Family History Family History Father Diabetes Hypertension Mother Alzheimer disease Social History Social History Housing: House Unable to assess alcohol history related to: Unknown Alcohol intake: never Patient Tobacco Use Status: Current someday Tobacco user Tobacco use type: Cigarette Cigarettes Per Day: 2 Smoked in Last 30 Days: No e-Cigarette/Vaping Use: Never Used Second Hand Smoke Exposure: No Use of substances other than those prescribed or required for medical reasons: Yes Substance Use Type: Marijuana and Opiates Substance Use Frequency: Occasionally Advance Directives: No Advance Directives Information Provided: Yes service: No Current occupational status: employed Current occupational exposures/hazards: No Cognitive needs: No Hearing needs: No Vision needs: No Physical Exam Vital Signs: Vital Signs: Last Vital Signs Temp 98.6 F 11/12/23 00:01 Pulse 106 H 11/12/23 00:12 Resp 18 11/12/23 00:12 BP 140/79 H 11/12/23 00:01 Pulse Ox 94 11/12/23 00:01 O2 Del Method Room Air 11/12/23 00:01 BMI result Body Mass Index 43.8 Appearance: Alert. Oriented X3. No acute distress. Eyes: Pupils equal, round and reactive to light. ENT: Pharynx normal. atraumatic Neck: Normal inspection. Neck supple. CVS: Normal heart rate and rhythm. Pulses normal. Respiratory: No respiratory distress. Breath sounds diminished L base Abdomen: Soft and nontender. Skin: Skin warm and dry. Normal skin color. Normal skin turgor. Extremities: No lower extremity edema. No calf ttp Neuro: Oriented X 3. No motor deficit. No sensory deficit. Course Course Course Narrative: observed for 4 hours no repeat need for narcan has gotten up and to the bathroom has eaten he can be discharged to family Medications Administered Discontinued Medications Generic Name Dose Route Start Last Admin Trade Name Freq PRN Reason Stop Dose Admin Albuterol/Ipratropium 3 ml 11/11/23 23:53 11/12/23 00:12 Albuterol/Iprat 2.5/0.5mg 3 Ml Ampul.Neb INHALE 11/11/23 23:54 3 ml ONCE ONE Administration Naloxone HCl 8 mg 11/11/23 23:53 11/12/23 00:58 Naloxone Hcl Nasal Take Home 4 Mg [place] NOSTRILALT 11/11/23 23:54 Not Given ONCE ONE Medical Decision Making Medical Decision Making [facility] Narrative: 38 yo male with PMH of depression, HTN, DM, anxiety, asthma, obesity, here with c/o accidental overdose at this time slightly diminished L lung base will give duoneb and CXR for aspiration. He denies need for help will observe and make sure he has narcan. He does not want any help as outpatient. No signs of head trauma. Differential Diagnosis Differential Diagnoses: The differential diagnosis associated with the presentation includes overdose, aspiration, bronchospasm Admission/Observation Consideration of admission/observation: Escalation of care including admission/observation considered doing better no need for repeat narcan O2 sats > 92% Lab Data [facility] Lab Attestation statement: I reviewed the patient's lab results. Labs: Lab Results 11/12/23 Range/Units 00:01 POC Glucose 222 H (60-115) mg/dL Independent Interpretation I performed an independent interpretation of an: Plain X-Ray (no aspiration) Radiology Impression Discussion of test interpretation with radiology: I have reviewed the radiologist's reading. Independent Historian Clinical information obtained from an independent historian. History obtained from or confirmed by: EMS External Record Review External record reviewed: Inpatient record Prescription Management I considered prescription management with: Other Discharge Plan Discharge Clinical Impression: Drug overdose Qualifiers: Encounter type: initial encounter Injury intent: accidental or unintentional Qualified Code(s): T50.901A - Poisoning by unspecified drugs, medicaments and biological substances, accidental (unintentional), initial encounter Patient Disposition: Home, Self-Care Instructions: Adult Overdose (ED) Additional Instructions: xray is normal carry narcan with you at all times return for worsening symptoms, fevers, cough, difficulty breathing or any other concerns. Prescriptions: No Action (DME) blood sugar diagnostic Strip See Rx Instructions .ROUTE .MEDSUPPLY Qty: 100 3RF Rx Instructions: Use 1 test strip twice a day (DME) lancets Misc See Rx Instructions .ROUTE .MEDSUPPLY Qty: 100 4RF Rx Instructions: Use 1 lancet twice a day albuterol sulfate [Ventolin HFA] 90 mcg/actuation HFA aerosol inhaler 2 puff PO Q6H PRN (Reason: for muscle spasm) Qty: 18 0RF pregabalin [Lyrica] 75 mg capsule 75 mg PO DAILY 90 Days Qty: 90 0RF atorvastatin 20 mg tablet 20 mg PO BEDTIME 90 Days Qty: 90 1RF Ozempic 0.25 mg or 0.5 mg (2 mg/3 mL) pen injector 0.5 mg subcut QWEEK 30 Days Qty: 3.68 0RF (DME) blood-glucose meter Kit See Rx Instructions .ROUTE .MEDSUPPLY Qty: 1 0RF Rx Instructions: As directed albuterol sulfate 90 mcg/actuation aerosol powdr breath activated 2 inh inhalation Q4-6H PRN (Reason: shortness of breath or wheezing) Qty: 1 0RF lidocaine 5 % adhesive patch,medicated 1 patch topical DAILY PRN (Reason: pain) Qty: 15 0RF Rx Instructions: leave on most painful area for up to 12 hrs meclizine 25 mg tablet 25 mg PO TID PRN (Reason: dizziness) Qty: 20 0RF amlodipine-benazepril 10-40 mg capsule 1 cap PO DAILY 90 Days Qty: 90 1RF chlorthalidone 50 mg tablet 50 mg PO DAILY 90 Days Qty: 90 1RF fluticasone propionate [Flonase Allergy Relief] 50 mcg/actuation spray,suspension 1 spray intranasal DAILY 14 Days Qty: 150 0RF Rx Instructions: administer into each nostril hydralazine 50 mg tablet 50 mg PO TID 90 Days Qty: 270 1RF insulin degludec [Tresiba FlexTouch U-100] 100 unit/mL (3 mL) insulin pen 50 unit subcut QPM 90 Days Qty: 45 3RF metformin 500 mg tablet 500 mg PO BID 90 Days Qty: 180 3RF omeprazole 20 mg capsule,delayed release(DR/EC) 20 mg PO DAILY Qty: 28 0RF metoprolol succinate 50 mg tablet extended release 24 hr 50 mg PO DAILY 90 Days Qty: 90 1RF (DME) pen needle, diabetic [1st Tier Unifine Pentips] 31 gauge x 5/16 needle See Rx Instructions .ROUTE .MEDSUPPLY Qty: 50 11RF Rx Instructions: use 1 pen needle once a day escitalopram oxalate 20 mg tablet 20 mg PO BEDTIME 90 Days Qty: 90 1RF Ozempic 0.25 mg or 0.5 mg (2 mg/3 mL) pen injector 0.25 mg subcut QWEEK 30 Days Qty: 1.84 0RF Rx Instructions: for 4 weeks Print Language: Upper Sorbian
[2023-11-12 00:12] VITALS: PULSE 106; RESP 18; O2SAT 91
[2023-11-12] MEDS: Albuterol/Iprat 2.5/0.5MG 3 ML AMPUL.NEB INHALE (00:12)
[2023-11-12 04:00] VITALS: BP 162/101; PULSE 93; RESP 14; TEMP 36.4; O2SAT 94
[2023-11-12] MEDS: Acetaminophen 325 MG TABLET 975 MG PO (04:03)
[2023-11-12 04:48] VITALS: BP 162/101; PULSE 93; RESP 14; TEMP 36.4; O2SAT 94
== END 2023-11-12 04:49 | disposition home or self-care (01) ==
PROVIDERS: Emergency Provider Emergency Medicine; PCP Internal Medicine
DX: T40.2X1A Poisoning by other opioids, accidental (unintentional), initial encounter (principal); I10 Essential (primary) hypertension; F17.210 Nicotine dependence, cigarettes, uncomplicated; F12.10 Cannabis abuse, uncomplicated; Y92.9 Unspecified place or not applicable; Z79.899 Other long term (current) drug therapy
CPT/HCPCS: 71045; 82947; 94640; 99285

== ENCOUNTER 2024-02-09 16:42 | Outpatient (AMB) | payer OTHER, SELFPAY ==
[2024-02-09 16:58] VITALS: BP 116/76; PULSE 90; O2SAT 95; BMI 42.2
--- NOTE | 2024-02-09 16:58 | A.OFFPC_ITS ---
Vital Signs 02/09/24 16:58 Height 6 ft Weight 311 lb 2 oz BMI 42.2 BP 116/76 Blood Pressure Location Lt brachial Position Sitting Pulse 90 Pulse Source Pulse Oximeter Pulse Oximetry (%) 95 Oxygen Delivery Method Room Air Intake Visit Reasons: 3 months + NEEDS A1C Director Of Corporate Sponsorships Required: No Accompanied by: Self / Same As Patient Allergies kiwi [KIWI] Allergy (Intermediate, Verified 02/09/24 17:01) SCRATCHY THROAT/VOMITING Medication List - Last Reconciled 02/09/24 by Jodee Berry MD albuterol sulfate 90 mcg/actuation 2 inhalations inhalation Q4-6H PRN amlodipine-benazepril 10-40 mg 1 cap PO DAILY 90 days atorvastatin 20 mg PO BEDTIME 90 days blood sugar diagnostic Use 1 test strip twice a day blood-glucose meter As directed chlorthalidone 50 mg PO DAILY 90 days escitalopram oxalate 20 mg PO BEDTIME 90 days fluticasone propionate 50 mcg/actuation (Flonase Allergy Relief) 1 spray i ntranasal DAILY 14 days hydralazine 50 mg PO TID 90 days insulin degludec (Tresiba FlexTouch U-100 insulin) 50 units (0.5 mL) subcut QPM 90 days lancets Use 1 lancet twice a day lidocaine 5% 1 patch topical DAILY PRN meclizine 25 mg PO TID PRN metformin 500 mg PO BID 90 days metoprolol succinate ER 50 mg PO DAILY 90 days omeprazole 20 mg PO DAILY pen needle, diabetic (1st Tier Unifine Pentips) use 1 pen needle once a day pregabalin (Lyrica) 75 mg PO DAILY 90 days semaglutide (Ozempic) 0.5 mg (0.736 mL) subcut QWEEK 30 days Tobacco use date assessed: 10/13/23 Dental Screening Dental Screen Date: 10/13/23 HPI HPI Comments History of Present Illness Details This is a 38-year-old male with diabetes mellitus type 2, hypertension, hyperlipidemia, morbid obesity and mild recurrent major depression that comes today complaining of low back pain radiating to the left leg and associated with left leg numbness most likely due to left sciatica. He is on Lyrica and still feel the pain. Will be referred to pain management. Able to walk with no assistive device. A1c has improved and I will increase Ozempic. Blood pressure stable. Lipid panel will be order and his LDL goal should be less than 70. He denies any chest pain or shortness on breath. He is morbidly obese with a BMI of 42.2 and declines weight loss surgery. Advised to do diet and exercise to reach BMI goal less than 30. Depression stable with escitalopram. [facility] Medical History (Updated 02/10/24 @ 10:07 by Jodee Berry MD) Diabetes Essential hypertension Onychomycosis STD exposure Erectile dysfunction Obese Mild asthma Neuropathy GERD (gastroesophageal reflux disease) Hypertension Diabetes Diabetes mellitus, type 2 Surgical History History of hernia surgery Family History Father Diabetes Hypertension Mother Alzheimer disease Social History Housing: House Unable to assess alcohol history related to: Unknown Alcohol intake: never Patient Tobacco Use Status: Current someday Tobacco user Tobacco use type: Cigarette Cigarettes Per Day: 2 e-Cigarette/Vaping Use: Never Used Second Hand Smoke Exposure: No Substance Use Type: Marijuana and Opiates service: No Current occupational status: employed Current occupational exposures/hazards: No Cognitive needs: No Hearing needs: No Vision needs: No Questionnaire Thrive Questionnaire Date Thrive assessed: 10/13/23 MAUREEN-7 AMB Questionnaire MAUREEN-7 Date MAUREEN - 7 assessed: 10/13/23 Source: Developed by Drs. Kwasi Harrison, Wendi Thomas, Eric Carlson and colleagues, with an educational muas from [employer]. Review of Systems Const All systems reviewed & are unremarkable except as noted in HPI and below Card Denies chest pain at rest, Denies chest pain with activity, Denies edema, Denies irregular heart rhythm, Denies claudication, Denies dyspnea, Denies dyspnea on exertion, Denies orthopnea, Denies paroxysmal nocturnal dyspnea and Denies slow heart rate Resp Denies cough, Denies dyspnea and Denies dyspnea on exertion GI Denies abdominal pain, Denies change in bowel habits, Denies excessive flatus, Denies nausea and Denies vomiting Denies urinary hesitancy, Denies urinary incontinence and Denies urinary urgency Musc Reports back pain, Denies atrophy, Denies deformity, Denies limited range of motion, Reports numbness and Reports radiating pain into limb Skin/Breast Denies bleeding lesions, Denies changing lesions and Denies rash Neuro Reports numbness Physical exam (Primary Care) Vital Signs: Last Vital Signs Pulse 90 02/09/24 16:58 BP 116/76 02/09/24 16:58 Pulse Ox 95 02/09/24 16:58 Oxygen Delivery Method Room Air 02/09/24 16:58 BMI result Body Mass Index 42.2 BMI Assessment/Plan discussion: High BMI High, discussed plan: lifestyle, weight reduction, dietary and physical activity Tobacco/Smoking Status: Tobacco use Status Tobacco use date assessed 10/13/23 02/09/24 17:01 Patient Tobacco Use Status Current someday Tobacco 02/09/24 17:01 Tobacco use type Cigarette 02/09/24 17:01 e-Cigarette/Vaping Use Never Used 02/09/24 17:01 Thrive Assessment: Date of Thrive Assessment Date Thrive assessed 10/13/23 02/09/24 17:01 Resp Effort & Inspection: normal respiratory effort Auscultation: clear to auscultation bilaterally Cardio Jugular venous distension: no JVD Rate: regular rate Rhythm: regular rhythm Heart sounds: S1 normal heart sound present and S2 normal heart sound present Extrem General: Yes full ROM Results AMB Hemoglobin A1c AMB Hemoglobin A1c 7.3 % Last Edit by VIRGIE Lo on 02/09/24 17:05 Results Reviewed Results Reviewed: Laboratory Last Values Hgb A1c (Clinic) 7.3 % (4.0-6.0) H 02/09/24 16:45 Assessment and Plan Assessment & Plan (1) Mild recurrent major depression: Code(s): F33.0 - Major depressive disorder, recurrent, mild Plan: Continue escitalopram. (2) Morbid obesity with BMI of 40.0-44.9, adult: Code(s): E66.01 - Morbid (severe) obesity due to excess calories; Z68.41 - Body mass index [BMI] 40.0-44.9, adult Plan: Start diet and exercise. BMI goal is less than 30. (3) Left sided sciatica: Code(s): M54.32 - Sciatica, left side Plan: Continue Lyrica. Referred to pain management. (4) Diabetes mellitus, type 2: Code(s): E11.9 - Type 2 diabetes mellitus without complications Qualifiers: Diabetes mellitus long term care social worker insulin use: with penitentiary use Diabetes mellitus complication status: with hyperglycemia Qualified Code(s): E11.65 - Type 2 diabetes mellitus with hyperglycemia; Z79.4 - retirement (current) use of insulin Plan: Continue insulin. Increase Ozempic. A1c goal is equal or less than 7%. (5) Essential hypertension: Code(s): I10 - Essential (primary) hypertension Plan: Continue amlodipine-benazepril, chlorthalidone and hydralazine. Blood pressure goal is equal or less than 130/80. (6) Hyperlipidemia LDL goal <70: Code(s): E78.5 - Hyperlipidemia, unspecified Plan: Continue statins. Repeat lipid panel. LDL goal is less than 70. Continue low- cholesterol diet. Orders: Orders AMB Hemoglobin A1c 02/09/24 E11.9 - Type 2 diabetes mellitus without complications Vitamin D 25-OH Total 02/09/24 E55.9 - Vitamin D deficiency, unspecified Lipid Panel 02/09/24 E78.5 - Hyperlipidemia, unspecified Microalbumin, Random (w Creat) 02/09/24 E11.9 - Type 2 diabetes mellitus without complications Comprehensive [place]. Panel Fast 02/09/24 E11.65 - Type 2 diabetes mellitus with hyperglycemia, E66.01 - Morbid (severe) obesity due to excess calories, Z68.41 - Body mass index [BMI] 40.0-44.9, adult, Z79.4 - retirement (current) use of insulin XR lumbar spine 2-3V 02/09/24 M54.32 - Sciatica, left side Referrals Pain Management Referral M54.32 - Sciatica, left side Medications: New blood-glucose sensor (Dexcom G6 Sensor device) As directed 3 ea 11RF E11.9 - Type 2 diabetes mellitus without complications semaglutide (Ozempic) 1 mg (0.75 mL) subcut QWEEK 3 mL 3RF 4 weeks silver sulfadiazine 1% apply a 1.5 mm thickness 1 appl topical DAILY 25 grams 0RF 2 weeks Refilled fluticasone propionate 50 mcg/actuation (Flonase Allergy Relief) administer into each nostril 1 spray intranasal DAILY 150 mL 0RF 14 days J32.9 - Chronic sinusitis, unspecified insulin degludec (Tresiba FlexTouch U-100 insulin) 50 units (0.5 mL) subcut QPM 45 mL 3RF 90 days E11.9 - Type 2 diabetes mellitus without complications metformin 500 mg PO BID 180 tabs 3RF 90 days metoprolol succinate ER 50 mg PO DAILY 90 tabs 1RF 90 days omeprazole 20 mg PO DAILY 28 caps 0RF albuterol sulfate 90 mcg/actuation 2 inhalations inhalation Q4-6H PRN 1 ea 0RF shortness of breath or wheezing amlodipine-benazepril 10-40 mg 1 cap PO DAILY 90 caps 1RF 90 days atorvastatin 20 mg PO BEDTIME 90 tabs 1RF 90 days chlorthalidone 50 mg PO DAILY 90 tabs 1RF 90 days escitalopram oxalate 20 mg PO BEDTIME 90 tabs 1RF 90 days hydralazine 50 mg PO TID 270 tabs 1RF 90 days Discontinued semaglutide (Ozempic) Discontinued Reason: Order 0.5 mg (0.736 mL) subcut QWEEK 30 days 3.68 mL 0RF Coding Level of Care Code Est Pt Level 4 (20815) Complex EM visit Add On G2211 Diagnoses Mild recurrent major depression F33.0 Morbid obesity with BMI of 40.0-44.9, adult E66.01; Z68.41 Left sided sciatica M54.32 Type 2 diabetes mellitus with hyperglycemia, with long-term current use of insulin E11.65; Z79.4 Diabetes mellitus penitentiary insulin use: with long term care social worker use Diabetes mellitus complication status: with hyperglycemia Essential hypertension I10 Hyperlipidemia LDL goal <70 E78.5 Time Spent (min) 23
== END 2024-02-09 17:11 | disposition home or self-care (01) ==
PROVIDERS: PCP Internal Medicine; Visit Provider Internal Medicine
DX: E11.65 Type 2 diabetes mellitus with hyperglycemia (principal); F33.0 Major depressive disorder, recurrent, mild; E66.01 Morbid (severe) obesity due to excess calories; Z68.41 Body mass index [BMI] 40.0-44.9, adult; Z79.4 Long term (current) use of insulin; M54.32 Sciatica, left side; I10 Essential (primary) hypertension; E78.5 Hyperlipidemia, unspecified
CPT/HCPCS: 83036; 99214; G2211

== ENCOUNTER 2024-03-01 10:31 | Outpatient (REF) | payer OTHER, SELFPAY ==
--- NOTE | ~2024-03-01 | XR_ITS ---
EXAMINATION: XR LUMBOSACRAL SPINE CLINICAL INFORMATION: Sciatica left side. COMPARISON: None available. TECHNIQUE: Three views of the lumbosacral spine. FINDINGS: Facet arthritis in the [id number] lumbar spine. Multilevel lumbar spondylosis with loss of disc space height most notable at L5-S1. Dextroscoliosis of the thoracic spine. Marked degenerative changes in the imaged lower thoracic spine. XR/XR lumbar spine 2-3V IMPRESSION: 1. Facet arthritis in the [id number] lumbar spine. 2. Multilevel lumbar spondylosis with loss of disc space height most notable at L5-S1.
[2024-03-01 12:03] LABS: Microalbum/Creatinine Ratio Ur 7.4 ug/mg cr (<30)
[2024-03-01 12:07] LABS: Alanine Aminotransferase 19 U/L (0-40); Albumin Level 4.2 g/dL (3.5-5.0); Alkaline Phosphatase 99 U/L (39-117); Anion Gap 16 (12-20); Aspartate Amino Transferase 20 U/L (5-37); Bilirubin Total 0.7 mg/dL (0.0-1.0); Blood Urea Nitrogen 20 mg/dL (9-16); Calcium 9.2 mg/dL (8.4-10.2); Carbon Dioxide 23 mmol/L (22-29); Chloride 106 mmol/L (96-108); Cholesterol 184 mg/dL (<200); Estimated Glomerular Filt Rate 50; Glucose Fasting 161 mg/dL (60-99); HDL Cholesterol 54 mg/dL (>40); LDL Cholesterol Calculated 95 mg/dL (<100); Potassium 3.8 mmol/L (3.3-5.1); Sodium 141 mmol/L (135-145); Total Protein 7.9 g/dL (6.5-8.0); Triglycerides 176 mg/dL (<150)
[2024-03-01 12:24] LABS: Vitamin D 25-OH Total 26.9 ng/mL (>30)
== END 2024-03-01 10:32 | disposition home or self-care (01) ==
LOC: HO.LAB 10:31
PROVIDERS: PCP Internal Medicine; Visit Provider Internal Medicine
DX: E66.01 Morbid (severe) obesity due to excess calories (principal); M54.32 Sciatica, left side; E55.9 Vitamin D deficiency, unspecified; E78.5 Hyperlipidemia, unspecified; E11.9 Type 2 diabetes mellitus without complications; Z68.41 Body mass index [BMI] 40.0-44.9, adult; E11.65 Type 2 diabetes mellitus with hyperglycemia; Z79.4 Long term (current) use of insulin
CPT/HCPCS: 36415; 72100; 80053; 80061; 82043; 82306; 82570

== ENCOUNTER 2024-04-21 13:06 | Emergency (ER) | payer OTHER, SELFPAY ==
--- NOTE | ~2024-04-21 | XR_ITS ---
EXAMINATION: XR RIBS, LEFT CLINICAL INFORMATION: Left rib pain. COMPARISON: Chest radiograph dated 11/12/2023. TECHNIQUE: PA view of the chest as well as 4 views of the left ribs. FINDINGS: Lungs are clear. No consolidation, pneumothorax, or pleural effusion. The cardiomediastinal silhouette and pulmonary vasculature are normal. Osseous structures are unremarkable. Ribs are intact. No fractures are identified. XR/XR ribs LT min 3V w CXR1V IMPRESSION: No displaced fracture. Electronically signed by: Nito Painter MD 04/21/2024 02:47 PM EDT
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
--- NOTE | ~2024-04-21 | XR_ITS ---
EXAMINATION: XR LUMBOSACRAL SPINE CLINICAL INFORMATION: Back pain. Left leg numbness. COMPARISON: Lumbar spine radiographs dated 03/01/2024. TECHNIQUE: Three views of the lumbosacral spine. FINDINGS: Normal vertebral body alignment. The lumbar lordosis is maintained. No acute fracture or subluxation. No loss of vertebral body height. Multilevel loss of intervertebral disc height, most prominent at L1-L2. Lower lumbar spine facet arthropathy. Findings are similar when compared to the prior examination. No concerning lytic or blastic osseous lesion. Phleboliths within the pelvis. XR/XR lumbar spine 2-3V IMPRESSION: Multilevel degenerative disc disease, most prominent at L1-L2. Findings are similar when compared to the prior examination. Electronically signed by: Nito Painter MD 04/21/2024 02:53 PM EDT
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
[2024-04-21 13:22] VITALS: BP 174/112; PULSE 88; RESP 16; TEMP 36.6; O2SAT 98; BMI 41.0
[2024-04-21] MEDS: Acetaminophen 325 MG TABLET 975 MG PO (15:07)
[2024-04-21] MEDS: Lidocaine 4 % Patch ADH..PATCH 1 PATCH TRANSDERMA (15:47)
[2024-04-21] MEDS: diazePAM 2 MG TABLET PO (15:47)
[2024-04-21 16:41] VITALS: BP 174/112; PULSE 88; RESP 16; TEMP 36.6; O2SAT 98
== END 2024-04-21 18:16 | disposition home or self-care (01) ==
PROVIDERS: Emergency Provider Emergency Medicine; PCP Internal Medicine
DX: S16.1XXA Strain of muscle, fascia and tendon at neck level, initial encounter (principal); S13.4XXA Sprain of ligaments of cervical spine, initial encounter; S09.90XA Unspecified injury of head, initial encounter; M62.830 Muscle spasm of back; V43.52XA Car driver injured in collision with other type car in traffic accident, initial encounter; Y93.9 Activity, unspecified; Y92.410 Unspecified street and highway as the place of occurrence of the external cause; Y99.9 Unspecified external cause status; R51.9 Headache, unspecified; M54.2 Cervicalgia; R07.81 Pleurodynia; M54.9 Dorsalgia, unspecified; E11.8 Type 2 diabetes mellitus with unspecified complications; I10 Essential (primary) hypertension
CPT/HCPCS: 70450; 71101; 72100; 72125; 99284

== ENCOUNTER 2024-05-11 15:00 | Outpatient (AMB) | payer OTHER, SELFPAY ==
[2024-05-11 15:01] VITALS: BP 160/94; PULSE 100; O2SAT 97; BMI 41.2
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
== END 2024-05-11 15:36 | disposition home or self-care (01) ==
PROVIDERS: PCP Internal Medicine; Visit Provider Nurse Practitioner Family
DX: M54.50 Low back pain, unspecified (principal); S16.1XXA Strain of muscle, fascia and tendon at neck level, initial encounter

== ENCOUNTER → 2024-05-11 15:00 | Outpatient (BNVA) | payer OTHER, SELFPAY | PROVIDERS: PCP Internal Medicine; Visit Provider Nurse Practitioner Family ==

== ENCOUNTER 2024-10-10 13:27 | Emergency (ER) | payer OTHER, SELFPAY ==
--- NOTE | ~2024-10-10 | CT_ITS ---
CLINICAL HISTORY: right flank pain CT abdomen and pelvis without contrast Comparison: None Findings: No consolidation or effusion. Normal gallbladder, liver, pancreas, spleen, and adrenal glands. Normal kidneys, ureters, and urinary bladder. Sigmoid diverticulosis without findings of diverticulitis. Normal appendix. Stomach and small bowel normal. No acute fracture or suspicious bone lesion. IMPRESSION: No acute findings. This document has been electronically signed by: Janes Salcedo MD on 10/10/2024 22:01:56
[2024-10-10 13:58] VITALS: BP 188/114; PULSE 89; RESP 18; TEMP 36.6; O2SAT 98; BMI 42.0
--- NOTE | 2024-10-10 14:01 | ED.GENADULT ---
HPI - General Adult General Chief complaint: Urogenital-Male Stated complaint: Vomiting Time Seen by Provider: 10/10/24 20:07 Source: patient Limitations: no limitations History of Present Illness ED Provider: Twila Giraldo PA-C HPI narrative: 39-year-old male with a history of hypertension, diabetes and morbid obesity presents with nausea vomiting diarrhea x3 days. Associated right mid back pain that has been ongoing for 2 weeks. Denies dysuria, hematuria history of kidney stones. Denies recent travel, use of antibiotics or hospitalization. No sick contacts with same symptoms. Related Data Previous Rx's ?Medication ?Instructions ?Recorded blood-glucose meter #1 ea 12/02/20 blood sugar diagnostic #100 ea 10/06/21 lancets #100 ea 10/06/21 meclizine 25 mg tablet 25 mg PO TID PRN dizziness #20 tabs 06/15/23 pen needle, diabetic 31 gauge x #50 ea 10/13/2312/14 (1st Tier Unifine Pentips) albuterol sulfate 90 mcg/actuation 2 inh inhalation Q4-6H PRN 02/09/24 breath activated powder inhaler shortness of breath or wheezing #1 ea amlodipine 10 mg-benazepril 40 mg 1 cap PO DAILY 90 days #90 caps 02/09/24 capsule atorvastatin 20 mg tablet 20 mg PO BEDTIME 90 days #90 tabs 02/09/24 blood-glucose sensor (Dexcom G6 #3 ea 02/09/24 Sensor device) chlorthalidone 50 mg tablet 50 mg PO DAILY 90 days #90 tabs 02/09/24 fluticasone propionate 50 1 spray intranasal DAILY 14 days 02/09/24 mcg/actuation nasal #150 mL spray,suspension (Flonase Allergy Relief) hydralazine 50 mg tablet 50 mg PO TID 90 days #270 tabs 02/09/24 insulin degludec 100 unit/mL (3 50 unit (0.5 mL) subcut QPM 90 02/09/24 mL) subcutaneous pen (Tresi #45 mL FlexTouch U-100 insulin) metformin 500 mg tablet 500 mg PO BID 90 days #180 tabs 02/09/24 metoprolol succinate 50 mg 50 mg PO DAILY 90 days #90 tabs 02/09/24 tablet,extended release 24 hr omeprazole 20 mg capsule,delayed 20 mg PO DAILY #28 caps 02/09/24 release silver sulfadiazine 1 % topical 1 appl topical DAILY 2 weeks #25 02/09/24 cream grams ibuprofen 600 mg tablet 600 mg PO Q6H PRN pain #30 tabs 04/21/24 acetaminophen 500 mg tablet 500 - 1,000 mg (1 - 2 x 500 mg) PO 05/11/24 (Tylenol Extra Strength) Q6H PRN pain #30 tabs cyclobenzaprine 10 mg tablet 10 mg PO TID PRN muscle spasm #20 05/11/24 tabs lidocaine 5 % topical patch 1 patch topical DAILY PRN pain #30 05/11/24 ea semaglutide 1 mg/dose (4 mg/3 mL) 1 mg (0.75 mL) subcut QWEEK 4 09/17/24 subcutaneous pen injector (Ozempic) weeks #3 mL escitalopram oxalate 20 mg tablet 20 mg PO BEDTIME 90 days #90 tabs 09/29/24 pregabalin 75 mg capsule (Lyrica) 75 mg PO DAILY 90 days #90 caps 10/07/24 dicyclomine 20 mg tablet 20 mg PO BID PRN abdominal pain #6 10/10/24 tabs ketorolac 10 mg tablet 10 mg PO QID PRN pain #20 tabs 10/10/24 ondansetron HCl 4 mg tablet 4 mg PO Q8H PRN nausea and 10/10/24 vomiting #10 tabs Allergies Allergy/AdvReac Type Severity Reaction Status Date / Time kiwi [KIWI] Allergy Intermediate SCRATCHY Verified 10/10/24 14:00 THROAT/VOMITING Review of Systems Review of Systems: Yes all other systems are reviewed and are negative Constitutional: Constitutional: Denies fatigue and Denies fever(s) Cardiovascular: Cardiovascular: Denies chest pain and Denies dyspnea Respiratory: Respiratory: Denies cough and Denies dyspnea Gastrointestinal: Gastrointestinal: Reports abdominal pain, Reports diarrhea, Reports nausea and Reports vomiting Genitourinary: Genitourinary: Denies hematuria, Denies dysuria and Denies flank pain Musculoskeletal: Musculoskeletal: Reports back pain Endocrine: Endocrine: Denies fatigue [facility]LY [facility] Past Medical History Attestation statement: The following information was validated with the patient. Medical History Diabetes Essential hypertension Onychomycosis STD exposure Erectile dysfunction Obese Mild asthma Neuropathy GERD (gastroesophageal reflux disease) Hypertension Diabetes Diabetes mellitus, type 2 Surgical History History of hernia surgery Family History Family History Father Diabetes Hypertension Mother Alzheimer disease Social History Social History Housing: House Unable to assess alcohol history related to: Unknown Alcohol intake: never Patient Tobacco Use Status: Current someday Tobacco user Tobacco use type: Cigarette Cigarettes Per Day: 2 e-Cigarette/Vaping Use: Never Used Second Hand Smoke Exposure: No Substance Use Type: Marijuana and Opiates Advance Directives: No Advance Directives Information Provided: Yes Do you have a plan to hurt others: No Plan service: No Current occupational status: employed Current occupational exposures/hazards: No Cognitive needs: No Hearing needs: No Vision needs: No Physical Exam ED Vital Signs: Vital Signs - 24 hr 10/10/24 13:58 10/10/24 20:18 10/10/24 21:03 Temperature 98 F 98.0 F Pulse Rate 89 85 Respiratory Rate 18 18 Blood Pressure 188/114 H 195/120 H 201/127 H Pulse Oximetry 98 99 Oxygen Delivery Method Room Air Room Air 10/10/24 21:19 Temperature 98 F Pulse Rate 74 Respiratory Rate 19 Blood Pressure 201/133 H Pulse Oximetry 97 Oxygen Delivery Method Room Air BMI result Body Mass Index 42.0 Const Other: Alert Orientation/consciousness: patient oriented x3 Resp Effort & Inspection: normal respiratory effort Cardio Other: Normal peripheral perfusion GI Other: Abdomen is soft, obese, nondistended, mild generalized tenderness to palpation across lower abdomen without guarding Skin Other: Warm dry no rash Neuro General: patient oriented x3, gait normal, no focal motor deficits and CN's II-XI intact bilaterally Psych Other: Cooperative Course Course Course Narrative: RME, this is a rapid medical exam performed by Cash Sutton please refer to primary provider for complete H&P- 39 year old male presents for evaluation of nausea, vomiting, and diarrhea over the last 4 days. Plan for labs, viral swabs Medications Administered Discontinued Medications Generic Name Dose Route Start Last Admin Trade Name Freq PRN Reason Stop Dose Admin Amlodipine Besylate 10 mg 10/10/24 21:04 10/10/24 21:19 Amlodipine Besylate 10 Mg Tablet PO 10/10/24 21:05 10 mg ONCE ONE Administration Protocol Ketorolac Tromethamine 15 mg 10/10/24 20:08 10/10/24 20:25 Ketorolac Tromethamine 15 Mg/Ml Vial IVPUSH 10/10/24 20:09 15 mg ONCE ONE Administration Lisinopril 40 mg 10/10/24 21:04 10/10/24 21:19 Lisinopril 40 Mg Tablet PO 10/10/24 21:05 40 mg ONCE ONE Administration Protocol Lorazepam 1 mg 10/10/24 20:09 10/10/24 20:24 Lorazepam 2 Mg/Ml Vial IVPUSH 10/10/24 20:10 1 mg ONCE ONE Administration Metoprolol Succinate 50 mg 10/10/24 21:04 10/10/24 21:19 Metoprolol Succinate Er 50 Mg Tab.Er.24h PO 10/10/24 21:05 50 mg ONCE ONE Administration Protocol Metoprolol Tartrate 5 mg 10/10/24 20:08 10/10/24 20:27 Metoprolol Tartrate 5 Mg/5 Ml Vial IVPUSH 10/10/24 20:09 5 mg ONCE ONE Administration Protocol Morphine Sulfate 4 mg 10/10/24 21:04 10/10/24 21:20 Morphine Sulfate 4 Mg/Ml Cartridge IVPUSH 10/10/24 21:05 4 mg ONCE ONE Administration Protocol Medical Decision Making Medical Decision Making MDM Narrative: 39-year-old male with a history of hypertension, diabetes and morbid obesity presents with nausea vomiting diarrhea x3 days. Associated right mid back pain that has been ongoing for 2 weeks. Denies dysuria, hematuria history of kidney stones. Denies recent travel, use of antibiotics or hospitalization. No sick contacts with same symptoms. Problem: Diabetes History: Per patient I have considered the following differential diagnoses: Diverticulitis, viral gastroenteritis, C diff, traveler's diarrhea, renal colic, pyelonephritis Plan: In regard to patient's GI symptoms, this could be viral gastroenteritis, such illness has been prevalent within the community. Screening labs were already obtained from triage. Given concurrent pain, we will obtain a CT scan to rule out diverticulitis. Giving antiemetic, pain medicine. To note he has no risk factors for C diff or traveler's diarrhea. In regard to the back/flank pain, he has no related complaints, no history of kidney stones, urine obtain in his unremarkable. So likely musculoskeletal. To note the patient was hypertensive, he states he forgot to take his medications today, we will give him his oral meds. I have independently reviewed the following tests: Labs: No leukocytosis, not anemic, no electrolyte abnormality, viral panel negative, urine negative CT abdomen and pelvis:Findings: No consolidation or effusion. Normal gallbladder, liver, pancreas, spleen, and adrenal glands. Normal kidneys, ureters, and urinary bladder. Sigmoid diverticulosis without findings of diverticulitis. Normal appendix. Stomach and small bowel normal. No acute fracture or suspicious bone lesion. IMPRESSION: No acute findings. Lab Data 10/10/24 14:25 10/10/24 14:25 Labs: Lab Results 10/10/24 10/10/24 10/10/24 Range/Units 14:24 14:25 14:42 WBC 8.2 (4.8-10.8) X10*3/uL RBC 5.94 H (4.60-5.80) X10*6/uL Hgb 15.6 (14.0-18.0) g/dl Hct 47.7 (42.0-52.0) % MCV 80.3 (80.0-98.0) fL MCH 26.3 L (27.0-33.0) pg MCHC 32.7 (31.0-36.0) g/dl RDW 12.8 (11.0-16.0) % Plt Count 232 D (160-400) X10*3/uL MPV 9.7 (9.4-12.4) fL Immature Gran % (Auto) 0.4 (0.0-0.4) % Neut % (Auto) 58.7 (45-73) % Lymph % (Auto) 30.7 (20-40) % [place] % (Auto) 6.4 (2-11) % Eos % (Auto) 3.2 (0-4) % Baso % (Auto) 0.6 (0-2) % Lymph # (Auto) 2.5 (1.2-4.9) X10*3/uL [place] # (Auto) 0.5 (0.1-1.2) X10*3/uL Eos # (Auto) 0.3 (0.0-0.4) X10*3/uL Baso # (Auto) 0.1 (0.0-0.2) X10*3/uL Abs Immat Gran (auto) 0.03 (0.00-0.03) X10*3/uL Absolute Neuts (auto) 4.8 (2.0-8.3) x10*3/uL Absolute Nucleated RBC 0.000 (0.0-0.012) X10*3/uL Nucleated RBC % (auto) 0.0 (0.0-0.2) /100WBC Sodium 138 (135-145) mmol/L Potassium 4.3 (3.3-5.1) mmol/L Chloride 110 H (96-108) mmol/L Carbon Dioxide 21 L (22-29) mmol/L Anion Gap 11 L (12-20) BUN 17 H (9-16) mg/dL Creatinine 1.08 (0.5-1.4) mg/dL Estim Creat Clear Calc 130.8 Estimated GFR > 60 Random Glucose 172 H (60-115) mg/dL Calcium 9.3 (8.4-10.2) mg/dL Total Bilirubin 0.7 (0.0-1.0) mg/dL AST 35 (5-37) U/L ALT 35 (0-40) U/L Alkaline Phosphatase 95 (39-117) U/L Total Protein 7.8 (6.5-8.0) g/dL Albumin 3.9 (3.5-5.0) g/dL Lipase 55 (8-78) U/L Urine Color Yellow Urine Appearance Clear Urine pH 6.0 (5.0-9.0) Ur Specific Sulphur >= 1.030 H (1.005-1.025) Urine Protein 30 (1+) H (Neg-Trace) mg/dL Urine Glucose (UA) 500 H (Negative) mg/dL Urine Ketones Trace (Negative) mg/dL Urine Blood Negative (Negative) Urine Nitrite Negative (Negative) Ur Leukocyte Esterase Negative (Negative) Urine RBC 0-2 (0-2) /HPF Urine WBC 0-5 (0-5) /HPF Ur Squamous Epith Cells 3-5 (0-2) /HPF Urine Bacteria None Seen (None Seen) Hyaline Casts 3-5 (0-2) /LPF Influenza Type A (PCR) NEGATIVE (Negative) Influenza Type B (PCR) NEGATIVE (Negative) RSV RNA Qual (PCR) NEGATIVE (Negative) SARS-CoV-2 RNA (RT-PCR) NEGATIVE (Negative) Discharge Plan Discharge Clinical Impression: Gastroenteritis Patient Disposition: Home, Self-Care Instructions: Gastroenteritis (ED) Additional Instructions: CT scan was negative. You likely have viral gastroenteritis as cause for your symptoms. In regard to your back pain, this appears to be musculoskeletal. For the back pain, take the ketorolac as needed with food. For your nausea uses Zofran as needed. Use the dicyclomine as needed for abdominal pain and diarrhea. Follow up with your primary care provider as needed. Prescriptions: New ondansetron HCl 4 mg tablet 4 mg PO Q8H PRN (Reason: nausea and vomiting) Qty: 10 0RF ketorolac 10 mg tablet 10 mg PO QID PRN (Reason: pain) Qty: 20 0RF Rx Instructions: maximum total duration of 5 days from all oral, intranasal, or parenteral formulations. Patient received an IV form of Toradol here in the emergency department dicyclomine 20 mg tablet 20 mg PO BID PRN (Reason: abdominal pain) Qty: 6 0RF No Action (DME) blood sugar diagnostic Strip See Rx Instructions .ROUTE .MEDSUPPLY Qty: 100 3RF Rx Instructions: Use 1 test strip twice a day (DME) lancets [facility] [place] [facility] See Rx Instructions .ROUTE .MEDSUPPLY Qty: 100 4RF Rx Instructions: Use 1 lancet twice a day Ozempic 1 mg/dose (4 mg/3 mL) pen injector 1 mg subcut QWEEK 28 Days Qty: 3 3RF escitalopram oxalate 20 mg tablet 20 mg PO BEDTIME 90 Days Qty: 90 1RF pregabalin [Lyrica] 75 mg capsule 75 mg PO DAILY 90 Days Qty: 90 0RF (DME) blood-glucose meter Kit See Rx Instructions .ROUTE .MEDSUPPLY Qty: 1 0RF Rx Instructions: As directed ibuprofen 600 mg tablet 600 mg PO Q6H PRN (Reason: pain) Qty: 30 0RF meclizine 25 mg tablet 25 mg PO TID PRN (Reason: dizziness) Qty: 20 0RF (DME) pen needle, diabetic [1st Tier Unifine Pentips] 31 gauge x 5/16 needle See Rx Instructions .ROUTE .MEDSUPPLY Qty: 50 11RF Rx Instructions: use 1 pen needle once a day silver sulfadiazine 1 % cream 1 appl topical DAILY 14 Days Qty: 25 0RF Rx Instructions: apply a 1.5 mm thickness (DME) Dexcom G6 Sensor Device See Rx Instructions .Route Qty: 3 11RF Rx Instructions: As directed albuterol sulfate 90 mcg/actuation aerosol powdr breath activated 2 inh inhalation Q4-6H PRN (Reason: shortness of breath or wheezing) Qty: 1 0RF amlodipine-benazepril 10-40 mg capsule 1 cap PO DAILY 90 Days Qty: 90 1RF atorvastatin 20 mg tablet 20 mg PO BEDTIME 90 Days Qty: 90 1RF chlorthalidone 50 mg tablet 50 mg PO DAILY 90 Days Qty: 90 1RF fluticasone propionate [Flonase Allergy Relief] 50 mcg/actuation spray,suspension 1 spray intranasal DAILY 14 Days Qty: 150 0RF Rx Instructions: administer into each nostril hydralazine 50 mg tablet 50 mg PO TID 90 Days Qty: 270 1RF insulin degludec [Tresiba FlexTouch U-100] 100 unit/mL (3 mL) insulin pen 50 unit subcut QPM 90 Days Qty: 45 3RF metformin 500 mg tablet 500 mg PO BID 90 Days Qty: 180 3RF metoprolol succinate 50 mg tablet extended release 24 hr 50 mg PO DAILY 90 Days Qty: 90 1RF omeprazole 20 mg capsule,delayed release(DR/EC) 20 mg PO DAILY Qty: 28 0RF lidocaine 5 % adhesive patch,medicated 1 patch topical DAILY PRN (Reason: pain) Qty: 30 0RF Rx Instructions: leave on most painful area for up to 12 hrs cyclobenzaprine 10 mg tablet 10 mg PO TID PRN (Reason: muscle spasm) Qty: 20 0RF acetaminophen [Tylenol Extra Strength] 500 mg tablet 500 - 1,000 mg PO Q6H PRN (Reason: pain) Qty: 30 0RF Stand Alone Forms: Work/School Release Print Language: Greek
[2024-10-10 14:47] LABS: MANUAL DIFF FLAG NO
[2024-10-10 14:50] LABS: Basophils Absolute Auto 0.1 X10*3/uL (0.0-0.2); Basophils Percent Auto 0.6 % (0-2); Eosinophils Absolute Auto 0.3 X10*3/uL (0.0-0.4); Eosinophils Percent Auto 3.2 % (0-4); Hematocrit 47.7 % (42.0-52.0); Hemoglobin 15.6 g/dl (14.0-18.0); Imm Gran Abs Auto 0.03 X10*3/uL (0.00-0.03); Imm Gran Pct Auto 0.4 % (0.0-0.4); Lymphocytes Absolute Auto 2.5 X10*3/uL (1.2-4.9); Lymphocytes Percent Auto 30.7 % (20-40); Mean Corpuscular HGB Conc 32.7 g/dl (31.0-36.0); Mean Corpuscular Hemoglobin 26.3 pg (27.0-33.0); Mean Corpuscular Volume 80.3 fL (80.0-98.0); Mean Platelet Volume 9.7 fL (9.4-12.4); Monocytes Absolute Auto 0.5 X10*3/uL (0.1-1.2); Monocytes Percent Auto 6.4 % (2-11); Neutrophils Absolute Auto 4.8 x10*3/uL (2.0-8.3); Neutrophils Percent Auto 58.7 % (45-73); Platelet Count 232 X10*3/uL (160-400); Red Blood Count 5.94 X10*6/uL (4.60-5.80); Red Cell Distribution Width 12.8 % (11.0-16.0); White Blood Count 8.2 X10*3/uL (4.8-10.8)
[2024-10-10 14:56] LABS: Appearance Urine Clear; Color Urine Yellow; Glucose Urine UA 500 mg/dL (Negative); Leukocyte Esterase Urine Negative (Negative); Nitrite Urine Negative (Negative); Specific Gravity - Urine >= 1.030 (1.005-1.025); UMIC TRIGGER UACC YES; Urine Blood Negative (Negative); Urine Ketones Trace mg/dL (Negative); Urine Protein 30 (1+) mg/dL (Neg-Trace)
[2024-10-10 15:00] LABS: Bacteria Urine None Seen (None Seen); RBC Urine 0-2 /HPF (0-2); WBC Urine 0-5 /HPF (0-5)
[2024-10-10 15:14] LABS: Alanine Aminotransferase 35 U/L (0-40); Albumin Level 3.9 g/dL (3.5-5.0); Anion Gap 11 (12-20); Aspartate Amino Transferase 35 U/L (5-37); Bilirubin Total 0.7 mg/dL (0.0-1.0); Blood Urea Nitrogen 17 mg/dL (9-16); Calcium 9.3 mg/dL (8.4-10.2); Carbon Dioxide 21 mmol/L (22-29); Chloride 110 mmol/L (96-108); Creatinine Clr Calc Pharmacy 130.8; Estimated Glomerular Filt Rate > 60; Glucose Random 172 mg/dL (60-115); Lipase 55 U/L (8-78); Potassium 4.3 mmol/L (3.3-5.1); Sodium 138 mmol/L (135-145); Total Protein 7.8 g/dL (6.5-8.0)
[2024-10-10 15:26] LABS: Influenza A PCR NEGATIVE (Negative); Influenza B PCR NEGATIVE (Negative); Resp Syncy Virus RNA Qual PCR NEGATIVE (Negative); SARS COV2 PCR INHOUSE NEGATIVE (Negative)
[2024-10-10 15:29] LABS: Alkaline Phosphatase 95 U/L (39-117)
--- OUTSIDE RECORDS SUMMARY | 2024-10-10 20:05 | XMS_ITS | Clinical Summary ---
Author Organization [facility] Address [address] [place] [address] Care Team Providers Care Head Operator Name Role Phone Unavailable Primary Care Provider Unavailabl e Source Comments PLEASE NOTE, if this patient is a minor, it may be UNLAWFUL to discuss sensitive information that is contained in these records (such as FAMILY PLANNING, MENTAL HEALTH or SUBSTANCE ABUSE) with the minor patient's parent or other person without the patient's specific authorization.[facility] Social History Tobacco Use Types Packs/Day Years Used Date Smoking Tobacco: Never Assessed Social Connections Answer Date Recorded Connectedness 0 04/13/2024 Financial Resource Strain Answer Date R ecorded Financial Resource Strain 0 2021 Stress Answer Date Recorded Stress 0 03/22/2022 Physical Activity Answer Date Recorded Physical Activity 0 03/22/2022 Food Insecurity Answer Date Recorded Food 0 04/26/2024 Transportation Needs Answer Date Record ed Transportation 0 03/22/2022 Housing Stability Answer Date Recorded Housing 0 03/22/2022 Safety and Environment Answer Date Christiano rded Safety 0 03/22/2022 Utilities Answer Date Recorded Utilities 0 03/22/2022 Employment Answer Date Recorded Stress 0 04/13/2024 Comments Unknown Sex and Gender Information Value Date Recorded Sex Assigned at Not on file Legal Sex Female 1:02 PM PDT Gender Identity Not on file Sexual Orientation Not on file Plan of Treatment Health Maintenance Due Date Last Done Comments Diabetes Screening 1983 HPV Screening 1983 Hepatitis C Screening 1983 Lipid Screening 1983 Pap + HPV 1983 Tobacco Screening 1983 HIV Screening 1998 Relationship Safety Screening/Counseling 1998 Annual Preventive Care Visit 2001 Hypertension Screening (#1) 2001 Imm-DTaP/Tdap/Td (1 - Tdap) 2002 Imm-Hepatitis B (1 of 3 - 19+ 3-dose series) 2 Cervical Cancer Screening 02/26/2004 Pap Smear 02/26/2004 Breast Cancer Screening (Mammogram) 2023 [id number] ( season) 2024 Imm-Influenza (#1) 2024 Alcohol and Drug Screen 08/01/2024 Depression Annual Screen 08/01/2024 Cervical Ablation/Cold-Knife Conization Discontinued Cervical Cryotherapy Discontinued Colposcopy Discontinued Endometrial Biopsy Discontinued Excision/Leep Discontinued HPV Genotyping Discontinued Vaginal Pap Discontinued Vulvoscopy Discontinued Insurance [place] DENT[place] [employer] [facility]
[2024-10-10 20:18] VITALS: BP 195/120; PULSE 85; RESP 18; TEMP 36.7; O2SAT 99
[2024-10-10] MEDS: LORazepam 2 MG/ML VIAL 1 MG IVPUSH (20:24)
[2024-10-10] MEDS: Ketorolac Tromethamine 15 MG/ML VIAL IVPUSH (20:25)
[2024-10-10] MEDS: Metoprolol Tartrate 5 MG/5 ML VIAL IVPUSH (20:27)
[2024-10-10 21:03] VITALS: BP 201/127
[2024-10-10 21:19] VITALS: BP 201/133; PULSE 74; RESP 19; TEMP 36.6; O2SAT 97
[2024-10-10] MEDS: amLODIPine Besylate 10 MG TABLET PO (21:19)
[2024-10-10] MEDS: lisinopriL 40 MG TABLET PO (21:19)
[2024-10-10] MEDS: Metoprolol Succinate ER 50 MG TAB.ER.24H PO (21:19)
[2024-10-10] MEDS: Morphine Sulfate 4 MG/ML CARTRIDGE IVPUSH (21:20)
[2024-10-10 22:50] VITALS: BP 198/128; PULSE 83; RESP 18; TEMP 36.6; O2SAT 97
[2024-10-10 22:58] VITALS: BP 198/128; PULSE 83; RESP 18; TEMP 36.6; O2SAT 97
== END 2024-10-10 22:59 | disposition home or self-care (01) ==
PROVIDERS: Physician Assistant; Emergency Provider Emergency Medicine Emergency Medical Services; PCP Internal Medicine
DX: K52.9 Noninfective gastroenteritis and colitis, unspecified (principal); R11.2 Nausea with vomiting, unspecified; M54.50 Low back pain, unspecified; R10.9 Unspecified abdominal pain; F17.210 Nicotine dependence, cigarettes, uncomplicated; Z03.818 Encounter for observation for suspected exposure to other biological agents ruled out; Z79.899 Other long term (current) drug therapy
CPT/HCPCS: 0241U; 74176; 80053; 81001; 83690; 85025; 96374; 96375; 99284; 99285; J1885; J2060; J2270

== ENCOUNTER → 2024-10-10 20:07 | Outpatient (BNV) | payer OTHER, SELFPAY | PROVIDERS: Emergency Provider Emergency Medicine Emergency Medical Services; PCP Internal Medicine; Visit Provider Radiology Diagnostic Radiology | DX: R10.9 Unspecified abdominal pain (principal) | CPT/HCPCS: 74176 ==

== ENCOUNTER 2024-10-25 13:28 | Outpatient (AMB) | payer OTHER, SELFPAY ==
[2024-10-25 13:39] VITALS: BP 164/120; BMI 42.7
--- NOTE | 2024-10-25 13:39 | MHC.PC.OV ---
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 Accompanied by: Self / Same As Patient Allergies kiwi [KIWI] Allergy (Intermediate, Verified 10/25/24 13:51) SCRATCHY THROAT/VOMITING Medication List - Last Reconciled 10/25/24 by Jodee Berry MD acetaminophen (Tylenol Extra Strength) 500 - 1,000 mg (1 - 2 x 500 mg) PO Q6H PRN albuterol sulfate 90 mcg/actuation 2 inhalations inhalation Q4-6H PRN amlodipine-benazepril 10-40 mg 1 cap PO DAILY 90 days atorvastatin 20 mg PO BEDTIME 90 days blood sugar diagnostic Use 1 test strip twice a day blood-glucose meter As directed blood-glucose sensor (DexCloakware G6 Sensor device) As directed chlorthalidone 50 mg PO DAILY 90 days cyclobenzaprine 10 mg PO TID PRN dicyclomine 20 mg PO BID PRN escitalopram oxalate 20 mg PO BEDTIME 90 days fluticasone propionate 50 mcg/actuation (Flonase Allergy Relief) 1 spray intranasal DAILY 14 days hydralazine 50 mg PO TID 90 days ibuprofen 600 mg PO Q6H PRN insulin degludec (Tresiba FlexTouch U-100 insulin) 50 units (0.5 mL) subcut QPM 90 days ketorolac 10 mg PO QID PRN lancets Use 1 lancet twice a day lidocaine 5% 1 patch topical DAILY PRN meclizine 25 mg PO TID PRN metformin 500 mg PO BID 90 days metoprolol succinate ER 50 mg PO DAILY 90 days omeprazole 20 mg PO DAILY ondansetron HCl 4 mg PO Q8H PRN pen needle, diabetic (1st Tier Unifine Pentips) use 1 pen needle once a day pregabalin (Lyrica) 75 mg PO DAILY 90 days semaglutide (Ozempic) 1 mg (0.75 mL) subcut QWEEK 4 weeks silver sulfadiazine 1% 1 appl topical DAILY 2 weeks Tobacco use date assessed: 10/25/24 Dental Screening Dental Screen Date: 10/25/24 Did you have a dental visit in the last 12 months?: No Did you have a dental problem in the last 6 months where you did not have access to dental care?: No Was dental information given to patient?: Patient has dentist HPI HPI Comments History of Present Illness Details The patient is a 39-year-old male presenting with a follow-up visit to manage hypertension, diabetes, hyperlipidemia, medication adherence, and address chronic back pain. He hasn't taken his morning antihypertensive medication, resulting in elevated blood pressure today. His current regimen includes amlodipine-venastapril, chlorthalidone, hydralazine, and metoprolol for hypertension, and atorvastatin for cholesterol. For diabetes, beyond metformin, he uses Tresiba and Ozempic, with a plan to increase Ozempic to 2 mg weekly due to an A1c of 8.6%. The chronic back pain, previously treated with Flexeril, ibuprofen, and Lyrica (pregabalin), remains localized without leg radiation, challenging mobility and activities. Morbid obesity impacts his conditions with a BMI of 42.7. He reports wheezing episodes, necessitating an inhaler, but struggles with timely refills. Persistent numbness affects daily activities without radiation. He treats depression and insomnia with escitalopram. Pending actions include fasting blood work within three months to evaluate cardiovascular risks and potential medication efficiency adjustments. [facility] Medical History Diabetes Essential hypertension Onychomycosis STD exposure Erectile dysfunction Obese Mild asthma Neuropathy GERD (gastroesophageal reflux disease) Hypertension Diabetes Diabetes mellitus, type 2 Surgical History History of hernia surgery Family History Father Diabetes Hypertension Mother Alzheimer disease Social History Housing: House Unable to assess alcohol history related to: Unknown Alcohol intake: never Patient Tobacco Use Status: Current someday Tobacco user Tobacco use type: Cigarette Cigarettes Per Day: 2 e-Cigarette/Vaping Use: Never Used Second Hand Smoke Exposure: No Substance Use Type: Marijuana and Opiates service: No Current occupational status: employed Current occupational exposures/hazards: No Cognitive needs: No Hearing needs: No Vision needs: No Questionnaire PHQ-9 Over the last 2 weeks, how often have you been bothered by any of the following problems? 1. Little interest or pleasure in doing things: not at all 2. Feeling down, depressed, or hopeless: not at all 3. Trouble falling or staying asleep, or sleeping too much: not at all 4. Feeling tired or having little energy: not at all 5. Poor appetite or overeating: not at all 6. Feeling bad about yourself - or that you are a failure or have let yourself or your family down: not at all 7. Trouble concentrating on things, such as reading the newspaper or watching television: not at all 8. Moving or speaking so slowly that other people could have noticed. Or the opposite - being so fidgety or restless that you have been moving around a lot more than usual: not at all 9. Thoughts that you would be better off or of hurting yourself in some way: not at all Total score: 0 Depression Screening Interpretation: Negative Depression Screening Done: Yes [id number] - PHQ-9 Billing: Yes Source: Developed by Drs. Kwasi Harrison, Wendi Thomas, Eric Carlson and colleagues, with an educational musa from [employer]. Thrive Questionnaire Date Thrive assessed: 10/25/24 I am a: Patient What is your living situation today?: I have a steady place to live Within the past 12 months, did the food you bought not last and you didn't have the money to get more?: Never true Within the past 12 months, did you worry whether your food would run out before you got money to buy more?: Never true Do you have trouble paying for medicines?: No Do you have trouble getting transportation to medical appointments?: No Do you have trouble paying your heating and electricity bill?: No Do you have trouble taking care of your child, family member or friend?: No Do you have trouble with day-to-day activities such as bathing, preparing meals, shopping, managing finances, etc.?: No Are you currently unemployed and looking for a job?: No Are you interested in more education?: No Please select the resources that you would like help with: None Currently or been in a relationship where the following occur: No concerns reported THRIVE Score: 0 AUDIT C Alcohol Use Questionnaire (AUDIT-C) 1. How often do you have a drink containing alcohol?: Monthly or less 2. How many drinks containing alcohol do you have on a typical day when you are drinking?: 1 or 2 3. How often do you have six or more drinks on one occasion?: Never Total Score: 1 MAUREEN-7 AMB Questionnaire MAUREEN-7 Date MAUREEN - 7 assessed: 10/25/24 Feeling nervous, anxious, or on edge: 1 = Several days Not being able to stop or control worryin = Not at all Worrying too much about different things: 0 = Not at all Trouble relaxin = Not at all Being so restless that it is hard to sit still: 0 = Not at all Becoming easily annoyed or irritable: 0 = Not at all Feeling afraid as if something awful might happen: 0 = Not at all Total MAUREEN-7 score (0-4 normal; 5-9 mild; 10-14 moderate; 15-21 severe): 1 Source: Developed by Drs. Kwasi Hrarison, Wendi Thomas, Eric Carlson and colleagues, with an educational musa from [employer]. MAUREEN-7 Assessment Billing MAUREEN-7 Assessment Tool: MAUREEN-7 Assessment 32144 Review of Systems Const All systems reviewed & are unremarkable except as noted in HPI and below Card Denies chest pain at rest, Denies chest pain with activity, Denies edema, Denies irregular heart rhythm, Denies claudication, Denies dyspnea, Denies dyspnea on exertion, Denies orthopnea, Denies paroxysmal nocturnal dyspnea and Denies slow heart rate Resp Denies cough, Denies dyspnea and Denies dyspnea on exertion Physical exam (Primary Care) Vital Signs: Last Vital Signs BP 164/120 H 10/25/24 13:39 BMI result Body Mass Index 42.7 BMI Assessment/Plan discussion: High BMI High, discussed plan: lifestyle, weight reduction, dietary and physical activity Tobacco/Smoking Status: Tobacco use Status Tobacco use date assessed 10/25/24 10/25/24 13:45 Patient Tobacco Use Status Current someday Tobacco 10/25/24 13:45 Tobacco use type Cigarette 10/25/24 13:45 e-Cigarette/Vaping Use Never Used 10/25/24 13:45 PHQ-9: PHQ-9 Score PHQ-9: Total score 0 10/25/24 13:55 Depression Screening Interpretation: Negative Thrive Assessment: Date of Thrive Assessment Date Thrive assessed 10/25/24 10/25/24 13:45 Currently or been in a relationship where the following occur: No concerns reported Resp Effort & Inspection: normal respiratory effort Auscultation: clear to auscultation bilaterally Cardio Jugular venous distension: no JVD Rate: regular rate Rhythm: regular rhythm Heart sounds: S1 normal heart sound present and S2 normal heart sound present Extrem General: Yes full ROM Results AMB Hemoglobin A1c AMB Hemoglobin A1c 8.6 % Last Edit by CHERRY Cerda on 10/25/24 13:46 Results Reviewed Results Reviewed: Laboratory Last Values Hgb A1c (Clinic) 8.6 % (4.0-6.0) H 10/25/24 13:32 Coding Level of Care Code Est Pt Level 4 (59980) Complex EM visit Add On G2211 Diagnoses Type 2 diabetes mellitus with hyperglycemia, with long-term current use of insulin E11.65; Z79.4 Diabetes mellitus long-term insulin use: with long-term use Diabetes mellitus complication status: with hyperglycemia Essential hypertension I10 Mild recurrent major depression F33.0 Morbid obesity with BMI of 40.0-44.9, adult E66.01; Z68.41 Lumbar pain M54.50 Hyperlipidemia LDL goal <70 E78.5 Additional Codes MAUREEN-7 Assessment Billing - MAUREEN-7 Assessment Tool: MAUREEN-7 Assessment 34555 ([id number]) PHQ-9 - 45297 - PHQ-9 Billing: Yes ([id number]) Time Spent (min) 24 Assessment & Plan Assessment & Plan (1) Diabetes mellitus, type 2: Code(s): E11.9 - Type 2 diabetes mellitus without complications Category: Medical Qualifiers: Diabetes mellitus tank terminal gauger insulin use: with long-term use Diabetes mellitus complication status: with hyperglycemia Qualified Code(s): E11.65 - Type 2 diabetes mellitus with hyperglycemia; Z79.4 - [facility] (current) use of insulin (2) Essential hypertension: Code(s): I10 - Essential (primary) hypertension Category: Medical (3) Mild recurrent major depression: Code(s): F33.0 - Major depressive disorder, recurrent, mild Category: Medical (4) Morbid obesity with BMI of 40.0-44.9, adult: Code(s): E66.01 - Morbid (severe) obesity due to excess calories; Z68.41 - Body mass index [BMI] 40.0-44.9, adult Category: Medical (5) Lumbar pain: Code(s): M54.50 - Low back pain, unspecified Category: Medical (6) Hyperlipidemia LDL goal <70: Code(s): E78.5 - Hyperlipidemia, unspecified Category: Medical Plan Ozempic dose will increase from 1 mg to 2 mg weekly. Fasting blood work is ordered and should be done within the next three months: For his chronic back pain, the Lyrica prescription will be renewed, emphasizing its role in neuropathic pain management. Other medications, including those for GERD and asthma, will also be refilled to ensure continuity of care. The numbness noted warrants observation; however, no changes will be made currently in the medication. Patient was informed and verbally consented to the use of an ambient scribe for clinic note documentation during this visit. During this visit, I discussed the importance of medication adherence, particularly in managing hypertension and diabetes. The decision to increase the Ozempic dose aims to provide better glycemic control, given his current A1c of 8.6%. I explained the functional role of Lyrica in managing his chronic low back pain and advised on its continued use. The patient was informed about necessary medication refills for GERD and inhalers for asthma, ensuring they are in consistent supply. I emphasized the need for periodic blood work to monitor cholesterol and glucose levels, with attention being paid to lifestyle factors contributing to his morbid obesity. Orders: Orders AMB Hemoglobin A1c Today E11.65 - Type 2 diabetes mellitus with hyperglycemia, Z79.4 - [facility] (current) use of insulin Medications: New semaglutide (Ozempic) 2 mg (0.75 mL) subcut QWEEK 3 mL 0RF 4 weeks Changed From omeprazole 20 mg PO DAILY 28 caps 0RF To omeprazole 20 mg PO DAILY 90 caps 2RF 90 days From ibuprofen 600 mg PO Q6H PRN 30 tabs 0RF pain To ibuprofen 600 mg PO Q6H PRN 90 tabs 1RF pain 30 days Refilled albuterol sulfate 90 mcg/actuation 2 inhalations inhalation Q4-6H PRN 1 ea 0RF shortness of breath or wheezing cyclobenzaprine 10 mg PO TID PRN 20 tabs 0RF muscle spasm M54.50 - Low back pain, unspecified, S16.1XXA - Strain of muscle, fascia and tendon at neck level, initial encounter Discontinued semaglutide (Ozempic) Discontinued Reason: Patient Completed Course 1 mg (0.75 mL) subcut QWEEK 4 weeks 3 mL 3RF Patient Instructions: - Continue taking current medications as prescribed. - Increase Ozempic to 2 mg once weekly. - Refill needed medications, including inhalers and omeprazole. - Perform fasting blood work within three months. - Monitor blood pressure regularly, particularly after missing doses. - Take note of any changes or progression in numbness; report if symptoms worsen. - Follow up in three weeks for blood pressure re-evaluation. - Maintain activity levels, adjusting for comfort with back pain; consider gentle activities such as walking the dog.
== END 2024-10-25 14:03 | disposition home or self-care (01) ==
PROVIDERS: PCP Internal Medicine; Visit Provider Internal Medicine
DX: E11.65 Type 2 diabetes mellitus with hyperglycemia (principal); Z79.4 Long term (current) use of insulin; E66.01 Morbid (severe) obesity due to excess calories; Z68.41 Body mass index [BMI] 40.0-44.9, adult; F33.0 Major depressive disorder, recurrent, mild; I10 Essential (primary) hypertension; M54.50 Low back pain, unspecified; E78.5 Hyperlipidemia, unspecified

== ENCOUNTER → 2024-10-25 13:28 | Outpatient (BNVA) | payer OTHER, SELFPAY | PROVIDERS: PCP Internal Medicine; Visit Provider Internal Medicine | DX: E11.65 Type 2 diabetes mellitus with hyperglycemia (principal); I10 Essential (primary) hypertension; F33.0 Major depressive disorder, recurrent, mild; E66.01 Morbid (severe) obesity due to excess calories; Z68.41 Body mass index [BMI] 40.0-44.9, adult; M54.50 Low back pain, unspecified; E78.5 Hyperlipidemia, unspecified; Z79.4 Long term (current) use of insulin | CPT/HCPCS: 83036; 96127; 99212 ==

== ENCOUNTER 2025-03-14 13:55 | Outpatient (AMB) | payer OTHER, SELFPAY ==
--- NOTE | 2025-03-14 14:12 | MHC.PC.OV ---
Vital Signs 03/14/25 14:13 Height 6 ft Weight 304 lb 2 oz BMI 41.2 BP 150/90 H Blood Pressure Location Rt brachial Position Sitting Respiration 18 Pulse 94 Pulse Source Pulse Oximeter Temp 99 F Temp Source Temporal Artery Scan Pulse Oximetry (%) 97 Oxygen Delivery Method Room Air Intake Visit Reasons: pe Clinical Pharmacy Manager Required: No Accompanied by: Self / Same As Patient Allergies kiwi (KIWI) Allergy (Intermediate, Verified 03/14/25 14:48) SCRATCHY THROAT/VOMITING Medication List - Last Reconciled 03/14/25 by Jodee Berry MD acetaminophen (Tylenol Extra Strength) 500 - 1,000 mg (1 - 2 x 500 mg) PO Q6H PRN albuterol sulfate 90 mcg/actuation 2 inhalations inhalation Q4-6H PRN amlodipine-benazepril 10-40 mg 1 cap PO DAILY 90 days atorvastatin 20 mg PO BEDTIME 90 days blood sugar diagnostic Use 1 test strip twice a day blood-glucose meter As directed blood-glucose sensor (Into The Gloss G6 Sensor device) As directed chlorthalidone 50 mg PO DAILY 90 days cyclobenzaprine 10 mg PO TID PRN dicyclomine 20 mg PO BID PRN escitalopram oxalate 20 mg PO BEDTIME 90 days fluticasone propionate 50 mcg/actuation (Flonase Allergy Relief) 1 spray intranasal DAILY 14 days hydralazine 50 mg PO TID 90 days ibuprofen 600 mg PO Q6H PRN 30 days insulin degludec (Tresiba FlexTouch U-100 insulin) 50 units (0.5 mL) subcut QPM 90 days ketorolac 10 mg PO QID PRN lancets Use 1 lancet twice a day lidocaine 5% 1 patch topical DAILY PRN meclizine 25 mg PO TID PRN metformin 500 mg PO BID 90 days metoprolol succinate ER 50 mg PO DAILY 90 days omeprazole 20 mg PO DAILY 90 days ondansetron HCl 4 mg PO Q8H PRN pen needle, diabetic (1st Tier Unifine Pentips) use 1 pen needle once a day semaglutide (Ozempic) 2 mg (0.75 mL) subcut QWEEK 4 weeks silver sulfadiazine 1% 1 appl topical DAILY 2 weeks Tobacco use date assessed: 03/14/25 Dental Screening Dental Screen Date: 03/14/25 Did you have a dental visit in the last 12 months?: No Did you have a dental problem in the last 6 months where you did not have access to dental care?: No Was dental information given to patient?: No HPI HPI Comments History of Present Illness Details The patient is a 40-year-old male presenting for an annual physical examination and management of chronic conditions. The patient has a history of Type 2 Diabetes Mellitus, with an A1c level of 6% indicating good glycemic control. He is currently on Metformin 500 mg twice daily and Ozempic 2 mg once a week. The patient has been diagnosed with Essential Hypertension, which has been fluctuating. He is on multiple antihypertensive medications including Amlodipine Benazepril, Chlorthalidone, and Hydralazine. The patient reports a history of Major Depressive Disorder, currently managed with Escitalopram 20 mg daily. He notes some improvement in symptoms but still experiences episodes of depression. The patient experiences chronic pain, primarily in the back, which radiates to the hamstrings and causes numbness in the left leg. Previous pain management attempts were ineffective, and pain medications may exacerbate his hypertension. The patient has a history of dyspepsia, managed with Omeprazole. He has a known allergy to Kiwi and experienced an allergic reaction to Lyrica, which was discontinued. The patient has a history of hernia surgery and reports a family history of diabetes and hypertension. Socially, the patient does not consume alcohol and smokes infrequently, approximately one cigarette per month. [facility] Medical History (Updated 03/14/25 @ 15:00 by Jodee Berry MD) Diabetes Essential hypertension Onychomycosis STD exposure Erectile dysfunction Obese Mild asthma Neuropathy GERD (gastroesophageal reflux disease) Hypertension Diabetes Diabetes mellitus, type 2 Surgical History History of hernia surgery Family History Father Diabetes Hypertension Mother Alzheimer disease Social History Housing: House Unable to assess alcohol history related to: Unknown Alcohol intake: never Patient Tobacco Use Status: Current someday Tobacco user Tobacco use type: Cigarette Cigarettes Per Day: 2 e-Cigarette/Vaping Use: Never Used Second Hand Smoke Exposure: No Substance Use Type: Marijuana and Opiates service: No Current occupational status: employed Current occupational exposures/hazards: No Cognitive needs: No Hearing needs: No Vision needs: No Questionnaire PHQ-9 Over the last 2 weeks, how often have you been bothered by any of the following problems? 1. Little interest or pleasure in doing things: more than half the days 2. Feeling down, depressed, or hopeless: several days 3. Trouble falling or staying asleep, or sleeping too much: more than half the days 4. Feeling tired or having little energy: more than half the days 5. Poor appetite or overeating: more than half the days 6. Feeling bad about yourself - or that you are a failure or have let yourself or your family down: several days 7. Trouble concentrating on things, such as reading the newspaper or watching television: several days 8. Moving or speaking so slowly that other people could have noticed. Or the opposite - being so fidgety or restless that you have been moving around a lot more than usual: not at all 9. Thoughts that you would be better off or of hurting yourself in some way: not at all Total score: 11 Depression Screening Interpretation: Positive Depression Screening Follow-up: Existing condition and Follow-up Visit Requested Depression Screening Done: Yes 37184 - PHQ-9 Billing: Yes Source: Developed by Drs. Kwasi Harrison, Wendi Thomas, Eric Carlson and colleagues, with an educational musa from [employer]. Thrive Questionnaire Date Thrive assessed: 03/14/25 I am a: Patient AUDIT C Alcohol Use Questionnaire (AUDIT-C) 1. How often do you have a drink containing alcohol?: Never Total Score: 0 Score Reviewed/Action Taken: No MAUREEN-7 AMB Questionnaire MAUREEN-7 Date MAUREEN - 7 assessed: 03/14/25 Feeling nervous, anxious, or on edge: 1 = Several days Not being able to stop or control worryin = Not at all Worrying too much about different things: 0 = Not at all Trouble relaxin = Not at all Being so restless that it is hard to sit still: 0 = Not at all Becoming easily annoyed or irritable: 0 = Not at all Feeling afraid as if something awful might happen: 0 = Not at all Total MAUREEN-7 score (0-4 normal; 5-9 mild; 10-14 moderate; 15-21 severe): 1 Source: Developed by Drs. Kwasi Harrison, Wendi Thomas, Eric Carlson and colleagues, with an educational musa from [employer]. MAUREEN-7 Assessment Billing MAUREEN-7 Assessment Tool: MAUREEN-7 Assessment 95880 Review of Systems Const All systems reviewed & are unremarkable except as noted in HPI and below Card Denies chest pain at rest, Denies chest pain with activity, Denies edema, Denies irregular heart rhythm, Denies claudication, Denies dyspnea, Denies dyspnea on exertion, Denies orthopnea, Denies paroxysmal nocturnal dyspnea and Denies slow heart rate Resp Denies cough, Denies dyspnea and Denies dyspnea on exertion GI Denies abdominal pain, Denies change in bowel habits, Denies excessive flatus, Denies nausea and Denies vomiting Denies urinary hesitancy, Denies urinary incontinence and Denies urinary urgency Musc Denies atrophy, Denies deformity and Denies limited range of motion Skin/Breast Denies bleeding lesions, Denies changing lesions and Denies rash Physical exam (Primary Care) Vital Signs: Last Vital Signs Temp 99 F 03/14/25 14:13 Pulse 94 03/14/25 14:13 Resp 18 03/14/25 14:13 BP 150/90 H 03/14/25 14:13 Pulse Ox 97 03/14/25 14:13 Oxygen Delivery Method Room Air 03/14/25 14:13 BMI result Body Mass Index 41.2 Tobacco/Smoking Status: Tobacco use Status Tobacco use date assessed 03/14/25 03/14/25 14:16 Patient Tobacco Use Status Current someday Tobacco 03/14/25 14:12 Tobacco use type Cigarette 03/14/25 14:12 e-Cigarette/Vaping Use Never Used 03/14/25 14:12 PHQ-9: PHQ-9 Score PHQ-9: Total score 11 03/14/25 14:33 Depression Screening Interpretation: Positive Depression Screening Follow-up: Existing condition and Follow-up Visit Requested Thrive Assessment: Date of Thrive Assessment Date Thrive assessed 03/14/25 03/14/25 14:12 HENMT Head: Yes normal to inspection, Yes normocephalic and Yes atraumatic Ears: external ears normal Eyes General: appearance normal, both eyes and all related structures Eyelids: Yes eyelids normal Conjunctivae: conjunctivae normal Neck Neck: Yes normal visual inspection and Yes supple Resp Effort & Inspection: normal respiratory effort Auscultation: clear to auscultation bilaterally Cardio Jugular venous distension: no JVD Rate: regular rate Rhythm: regular rhythm Heart sounds: S1 normal heart sound present and S2 normal heart sound present GI Inspection: Yes normal to inspection Palpation (GI): Soft to palpation and nontender Auscultation: normal bowel sounds Skin General skin exam: no rashes or lesions noted Neuro General: no focal motor deficits Extrem General: Yes full ROM Psych Appearance: grossly normal Results AMB Hemoglobin A1c AMB Hemoglobin A1c 6.0 % Last Edit by Mary Rosenberg MA on 03/14/25 14:34 Results Reviewed Results Reviewed: Laboratory Last Values Hgb A1c (Clinic) 6.0 % (4.0-6.0) 03/14/25 14:25 Coding Level of Care Code Est Pt Level 3 (34887) Est Pt Prev Care 40-64y(93123) Diagnoses Physical exam Z00.00 Left sided sciatica M54.32 Morbid obesity with BMI of 40.0-44.9, adult E66.01; Z68.41 Type 2 diabetes mellitus with hyperglycemia, with long-term current use of insulin E11.65; Z79.4 Diabetes mellitus mcc insulin use: with mcc use Diabetes mellitus complication status: with hyperglycemia Mild recurrent major depression F33.0 Additional Codes MAUREEN-7 Assessment Billing - MAUREEN-7 Assessment Tool: MAUREEN-7 Assessment 51835 ([id number]) PHQ-9 - 00051 - PHQ-9 Billing: Yes ([id number]) Time Spent (min) 35 Assessment & Plan Assessment & Plan (1) Physical exam: Code(s): Z00.00 - Encounter for general adult medical examination without abnormal findings Category: Medical (2) Left sided sciatica: Code(s): M54.32 - Sciatica, left side Category: Medical (3) Morbid obesity with BMI of 40.0-44.9, adult: Code(s): E66.01 - Morbid (severe) obesity due to excess calories; Z68.41 - Body mass index [BMI] 40.0-44.9, adult Category: Medical (4) Diabetes mellitus, type 2: Code(s): E11.9 - Type 2 diabetes mellitus without complications Category: Medical Qualifiers: Diabetes mellitus long distance billing operator insulin use: with long distance billing operator use Diabetes mellitus complication status: with hyperglycemia Qualified Code(s): E11.65 - Type 2 diabetes mellitus with hyperglycemia; Z79.4 - intermediate project manager (current) use of insulin (5) Mild recurrent major depression: Code(s): F33.0 - Major depressive disorder, recurrent, mild Category: Medical Plan The patient will continue with his current regimen for Type 2 Diabetes Mellitus, including Metformin and Ozempic, with blood work planned to monitor glycemic control and lipid levels. For hypertension, the patient will maintain his current antihypertensive medications, and blood pressure will be re-evaluated in three weeks to assess control. The patient will continue Escitalopram for depression, with monitoring for symptom improvement. Referral to [facility] is planned for further evaluation and management of chronic pain. The patient is advised to avoid Lyrica due to a previous allergic reaction and to continue Omeprazole for dyspepsia management. Patient was informed and verbally consented to the use of an ambient scribe for clinic note documentation during this visit. Orders: Orders Comprehensive [place]. Panel Fast Today E66.01 - Morbid (severe) obesity due to excess calories, Z68.41 - Body mass index [BMI] 40.0-44.9, adult AMB Hemoglobin A1c Today Z13.9 - Encounter for screening, unspecified Lipid Panel Today E78.5 - Hyperlipidemia, unspecified Microalbumin, Random (w Creat) Today R80.9 - Proteinuria, unspecified Referrals Pain Management Referral M54.32 - Sciatica, left side
[2025-03-14 14:13] VITALS: BP 150/90; PULSE 94; RESP 18; TEMP 37.2; O2SAT 97; BMI 41.2
--- OUTSIDE RECORDS SUMMARY | 2025-03-14 14:47 | XMS_ITS | Clinical Summary ---
Author Organization [facility] Address [address] [place] [id number] Phone Care Team Providers Care Solar Lab Technician Name Role Phone Jodee Rich MD Primary Care Provid er Allergies No known active allergies Active Problems Problem Noted Date Diagnosed Date Hypertension 02/11/2022 Diabetes 02/11/2022 Social History Tobacco Use Types Packs/Day Years Used Date Smoking Tobacco: Never Assessed Education Answer Date Recorded Are you interested in more education? Not on aj e 11/27/2022 Are you concerned about learning? Not on file 11/27/2022 No 11/27/2022 No 11/27/2022 Digital Access Answer Date Recorded No 12/28/2022 No 12/28/2022 Reliable internet access at home? Not on file 12/28/2022 Device with a working camera? Not on file Sex and Gender Information Value Date Recorded Sex Assigned at Male 02/11/2022 10:54 PM EDT Legal Sex Male 10:41 PM EDT Gender Identity Male 02/11/2022 10:54 PM EDT Sexual Orientation Not on file Last Filed Vital Signs Vital Sign Reading Time Taken Comments Blood Pressure 153/86 02/11/2022 10:52 PM EDT Pulse 109 02/11/2022 10:52 PM EDT Temperature 36.7 C (98.1 F) 02/11/2022 10:52 PM EDT Respiratory Rate 18 02/11/2022 10:52 PM EDT Oxygen Saturation 98% 02/11/2022 10:52 PM EDT Inhaled Oxygen Concentration - - Weight - - Height - - Body Mass Index - - Plan of Treatment Not on file Medical Devices Not on file Insurance [facility] [place] [address] [place] [address] [place] [address] [place] [address] [address] [facility] [place] [address] [place] [address] ACO [facility] ACO [facility] A[facility] Care Teams Solar Lab Technician Relationship Specialty Start Date End Date Jodee Rich MD [address] [place] [address] PCP - General Internal Medicine 02/10/22 Additional Source Comments The information contained in this document represents components of the legal health record. It is not the complete legal health record.[facility]
--- OUTSIDE RECORDS SUMMARY | 2025-03-14 14:47 | XMS_ITS | Clinical Summary ---
Author Organization [facility] Address [address] [place] [address] Care Team Providers Care Shuttle Veneering Supervisor Name Role Phone Jodee Berry MD Primary Care Provider [phone] Surgical History Surgery Date Site/Laterality Comments HERNIA REPAIR PROCEDURE: HISTORICAL HERNIA REPAIR/UMB APPENDECTOMY PROCEDURE: MS APPENDECTOMY Medical History Medical History Date Comments HTN (hypertension) DX:HTN (hyper tension) Morbid obesity (CMS/HCC V24, CMS/HCC V28) DX:Morbid obesity (HCC) Type II or unspecified type diabetes mellitus with unspecified complication, not stated as uncontrolled DX:Type II or unspecified ty pe diabetes mellitus with unspecified complication, not stated as uncontrolled GERD (gastroesophageal reflux disease) 03/30/2022 DX:GERD (gastroesophageal reflux disease) Family History Medical History Relation Name Comments Diabetes Father Depression Mother Hypertension Mother Hypertension Sister 1 Blindness Neg Hx Cataracts Neg Hx Glaucoma Neg Hx Macular degeneration Neg Hx Strabismus Neg Hx Relation Name Status Comments Brother Alive Father Alive htn. DM Mother Sister 1 Sister 2 Alive Social History Tobacco Use Types Packs/Day Years Used Date Smoking Tobacco: Never Smokeless Tobacco: Never Alcohol Use Standard Drinks/Week Comments Yes 0 (1 standard drink = 0.6 oz pur e alcohol) Sex and Gender Information Value Date Recorded Sex Assigned at Not on file Legal Sex Male 5:41 PM EST Gender Identity Not on file Sexual Orientation Not on file Obstetrics History Last Filed Vital Signs Vital Sign Reading Time Taken Comments Blood Pressure - - Pulse - - Temperature - - Respiratory Rate - - Oxygen Saturation - - Inhaled Oxygen Concentration - - Weight 141 kg (311 lb) 03/31/2022 2:37 PM EDT Height 182.9 cm (6') 03/31/2022 2:37 PM EDT Body Mass Index 42.18 03/31/2022 2:37 PM EDT Plan of Treatment Health Maintenance Due Date Last Done Comments DTaP,Tdap,and Td Vaccines (1 - Tdap) 2002 Hepatitis B Vaccines (1 of 3 - 19+ 3-dose series) 2002 Cholesterol Screening (Lipid Panel) 07/03/2022 HIV Screening 07/03/2022 Hepatitis C Screening 07/03/2022 Social Influencers of Health Screening 07/03/2022 COVID-19 Vaccine (1 - 2023-2 5 season) 2024 Depression Screening 08/01/2024 Influenza Vaccine (#1) 2025 HIB Vaccines Aged Out No longer eligi ble based on patient's age to complete this topic HPV Vaccines Aged Out No longer eligi ble based on patient's age to complete this topic Hepatitis A Vaccines Aged Out No long er eligible based on patient's age to complete this topic IPV Vaccines Aged Out No longer eligi ble based on patient's age to complete this topic MMR Vaccines Aged Out No longer eligi ble based on patient's age to complete this topic Meningococcal ACWY Vaccine Aged Out N o longer eligible based on patient's age to complete this topic Meningococcal B Vaccine Aged Out No l onger eligible based on patient's age to complete this topic Pneumococcal Vaccine: Pediat rics (0 to 5 Years) and At-Risk Patients (6 to 49 Years) Aged Out No longer eligible b ased on patient's age to complete this topic RSV Immunization Patients Un lacey 20 months Aged Out No longer eligible b ased on patient's age to complete this topic Varicella Vaccines Aged Out No longer eligible based on patient's age to complete this topic Care Teams Shuttle Veneering Supervisor Relationship Specialty Start Date End Date Jodee Berry MD [address] [place] [address] , [address] [facility] D[facility]A: [facility] KALEB Sequeira PCP - General Internal Medicine 02/11/22
--- OUTSIDE RECORDS SUMMARY | 2025-03-14 14:47 | XMS_ITS | Clinical Summary ---
Author Organization [facility] Address [address] [place] [address] Care Team Providers Care Time Clock Repairer Name Role Phone Unavailable Primary Care Provider [...] Health Maintenance Due Date Last Done Comments Anxiety Screening 1983 Diabetes Screening 1983 HPV Screening 1983 Hepatitis C Screening 1983 Lipid Screening 1983 Pap + HPV 1983 Tobacco Screening 1983 HIV Screening 1998 Relationship Safety Screening/Counseling 1998 Hypertension Screening (#1) 2001 Imm-DTaP/Tdap/Td (1 - Tdap) 2002 Imm-Hepatitis B (1 of 3 - 19+ 3-dose series) 2 Cervical Cancer Screening 02/26/2004 Pap Smear 02/26/2004 Breast Cancer Screening (Mammogram) 2023 Iyo-QBPCO-22 ( season) 2024 Alcohol and Drug Screen 08/01/2024 Depression Annual Screen 08/01/2024 Imm-Influenza (#1) 2025 Cervical Ablation/Cold-Knife Conization Discontinued Cervical Cryotherapy Discontinued Colposcopy Discontinued Endometrial Biopsy Discontinued Excision/Leep Discontinued HPV Genotyping Discontinued Vaginal Pap Discontinued Vulvoscopy Discontinued Insurance [place] MEDICAID DENTAL [facility]
== END 2025-03-14 15:02 | disposition home or self-care (01) ==
LOC: HO.HMCH 13:56
PROVIDERS: PCP Internal Medicine; Visit Provider Internal Medicine
DX: Z00.00 Encounter for general adult medical examination without abnormal findings (principal); E66.01 Morbid (severe) obesity due to excess calories; Z68.41 Body mass index [BMI] 40.0-44.9, adult; E11.65 Type 2 diabetes mellitus with hyperglycemia; Z79.4 Long term (current) use of insulin; M54.32 Sciatica, left side; F33.0 Major depressive disorder, recurrent, mild

== ENCOUNTER → 2025-03-14 13:55 | Outpatient (BNVA) | payer OTHER, SELFPAY | PROVIDERS: PCP Internal Medicine; Visit Provider Internal Medicine | DX: Z00.00 Encounter for general adult medical examination without abnormal findings (principal); E11.9 Type 2 diabetes mellitus without complications; I10 Essential (primary) hypertension; M54.32 Sciatica, left side; E66.01 Morbid (severe) obesity due to excess calories; E11.65 Type 2 diabetes mellitus with hyperglycemia; F33.0 Major depressive disorder, recurrent, mild; Z79.4 Long term (current) use of insulin; Z68.41 Body mass index [BMI] 40.0-44.9, adult; Z79.84 Long term (current) use of oral hypoglycemic drugs; Z79.899 Other long term (current) drug therapy | CPT/HCPCS: 83036; 96127; 99212; 99396 ==

== ENCOUNTER 2025-05-17 17:45 | Emergency (ER) | payer OTHER, SELFPAY ==
--- NOTE | ~2025-05-17 | XR_ITS ---
CLINICAL HISTORY: rt hand swelling 3 view right hand Comparison: None provided Findings: No fractures or dislocations. No significant loss of joint space or osteophytes. No erosions. No radiopaque foreign body. IMPRESSION: 1. No acute findings This document has been electronically signed by: Stuart Lloyd MD on 05/17/2025 19:48:19
--- NOTE | ~2025-05-17 | US_ITS ---
CLINICAL HISTORY: RT UE swelling Venous duplex ultrasound right upper extremity Comparison: None provided Findings: Accessible deep venous segments are fully compressible with normal Doppler color flow and spectral tracings. IMPRESSION: 1. Negative for right upper extremity deep vein thrombosis. This document has been electronically signed by: Stuart Lloyd MD on 05/17/2025 20:59:24
[2025-05-17 17:58] VITALS: BP 173/98; PULSE 95; RESP 18; TEMP 36.3; O2SAT 95; BMI 43.0
[2025-05-17 18:15] LABS: MANUAL DIFF FLAG NO
[2025-05-17 18:35] LABS: Hematocrit 41.2 % (42.0-52.0); Hemoglobin 13.6 g/dl (14.0-18.0); Imm Gran Abs Auto 0.06 X10*3/uL (0.00-0.03); Imm Gran Pct Auto 0.6 % (0.0-0.4); Lymphocytes Absolute Auto 1.6 X10*3/uL (1.2-4.9); Mean Corpuscular HGB Conc 33.0 g/dl (31.0-36.0); Mean Corpuscular Hemoglobin 26.7 pg (27.0-33.0); Mean Corpuscular Volume 80.8 fL (80.0-98.0); NRBC Abs Auto 0.000 X10*3/uL (0.0-0.012); NRBC Pct Auto 0.0 /100WBC (0.0-0.2); Platelet Count 298 X10*3/uL (160-400); Red Blood Count 5.10 X10*6/uL (4.60-5.80); White Blood Count 10.2 X10*3/uL (4.8-10.8)
--- OUTSIDE RECORDS SUMMARY | 2025-05-17 18:41 | XMS_ITS | Clinical Summary ---
Author Organization [facility] Address [address] [place] [id number] Phone Care Team Providers Care Java Sybase Developer Name Role Phone Jodee Rich MD Primary [...] file Medical Devices Not on file Insurance [facility] [place] [address] [place] [address] [place] [address] [place] [address] A[place] [facility] [place] [address] [place] [address] [facility] [facility] ACO [facility] Care Teams Java Sybase Developer Relationship Specialty Start Date End Date Jodee Rich MD [address] [place] [address] PCP - General Internal Medicine 02/10/22 Additional Source Comments The information contained in this document represents components of the legal health record. It is not the complete legal health record.[facility]
--- NOTE | 2025-05-17 18:42 | ED_ITS ---
HPI - General Adult General Chief complaint: General Medical Stated complaint: R hand swelling, no injury Time Seen by Provider: 05/17/25 18:40 Source: patient Mode of arrival: ambulatory Limitations: no limitations History of Present Illness ED Provider: MALVIN Chicas HPI narrative: This is a 40-year-old male past medical history significant for left-sided sciatica thoracic spine pain, depression, former drug abuser, hypertension, diabetes, asthma, anxiety, erectile dysfunction, neuropathy, GERD who presents to the emergency department with multiple complaints. Reports the past 3-5 days patient has been having atraumatic right hand swelling he reports it feels like a tightness his right upper extremity. No associated trauma. He reports the pain was worse however it is still present. He reports it has been progressively improving. He also reports he has been having a cough for the past few days. Denies sick exposures denies chest pain, shortness of breath, fevers, chills, nausea, vomiting, abdominal pain, headache, vision changes, dizziness and weakness. Related Data Previous Rx's ?Medication ?Instructions ?Recorded blood-glucose meter #1 ea 12/02/20 blood sugar diagnostic #100 ea 10/06/21 lancets #100 ea 10/06/21 meclizine 25 mg tablet 25 mg PO TID PRN dizziness # 20 tabs 06/15/23 pen needle, diabetic 31 gauge x #50 ea 10/13/2312/14 (1st Tier Unifine Pentips) blood-glucose sensor (Dexcom G6 #3 ea 02/09/24 Sensor device) fluticasone propionate 50 1 spray intranasal DAILY 14 days 02/09/24 mcg/actuation nasal #150 mL spray,suspension (Flonase Allergy Relief) silver sulfadiazine 1 % topical 1 appl topical DAILY 2 weeks #25 02/09/24 cream grams acetaminophen 500 mg tablet 500 - 1,000 mg (1 - 2 x 50 0 mg) PO 05/11/24 (Tylenol Extra Strength) Q6H PRN pain #30 tabs lidocaine 5 % topical patch 1 patch topical DAILY PRN pain #30 05/11/24 ea dicyclomine 20 mg tablet 20 mg PO BID PRN abdominal p ain #6 10/10/24 tabs ketorolac 10 mg tablet 10 mg PO QID PRN pain #20 ta bs 10/10/24 ondansetron HCl 4 mg tablet 4 mg PO Q8H PRN nausea and 10/10/24 vomiting #10 tabs albuterol sulfate 90 mcg/actuation 2 inh inhalation Q4 -6H PRN 10/25/24 breath activated powder inhaler shortness of breath or wheezing #1 ea cyclobenzaprine 10 mg tablet 10 mg PO TID PRN muscle s pasm #20 10/25/24 tabs omeprazole 20 mg capsule,delayed 20 mg PO DAILY 90 day s #90 caps 10/25/24 release insulin degludec 100 unit/mL (3 50 unit (0.5 mL) subcu t QPM 90 03/03/25 mL) subcutaneous pen (Tresi days #45 mL FlexTouch U-100 insulin) escitalopram oxalate 20 mg tablet 20 mg PO BEDTIME 90 days #90 tabs 04/01/25 semaglutide 2 mg/dose (8 mg/3 mL) 2 mg (0.75 mL) subcu t QWEEK 4 04/03/25 subcutaneous pen injector (Ozempic) weeks #3 mL atorvastatin 20 mg tablet 20 mg PO BEDTIME 90 days #90 tabs 04/18/25 chlorthalidone 50 mg tablet 50 mg PO DAILY 90 days #90 tabs 04/18/25 amlodipine 10 mg-benazepril 40 mg 1 cap PO DAILY 90 da ys #90 caps 05/02/25 capsule hydralazine 50 mg tablet 50 mg PO TID 90 days #270 ta bs 05/02/25 metformin 500 mg tablet 500 mg PO BID 90 days #180 t abs 05/02/25 metoprolol succinate 50 mg 50 mg PO DAILY 90 days #90 tabs 05/02/25 tablet,extended release 24 hr ibuprofen 600 mg tablet 600 mg PO Q6H PRN pain 30 da ys #90 05/09/25 tabs acetaminophen 500 mg capsule 1,000 mg (2 x 500 mg) PO .q8 PRN 05/17/25 fever or pain #30 caps cephalexin 500 mg capsule 500 mg PO QID #28 caps 05/17 ibuprofen 600 mg tablet 600 mg PO Q8H PRN fever or p ain 05/17/25 #30 tabs prednisone 20 mg tablet 60 mg (3 x 20 mg) PO DAILY 5 days 05/17/25 #15 tabs Allergies Allergy/AdvReac Type Severity Reaction Status Date / Time kiwi (KIWI) Allergy Intermediate SCRATCHY Verified 05/17/25 17:59 THROAT/VOMITING Review of Systems 2 Review of Systems: Yes all other systems are reviewed and are negative [facility] Past Medical History Attestation statement: The following information was validated with the patient. Source: old records reviewed and nursing notes reviewed Medical History Diabetes Essential hypertension Onychomycosis STD exposure Erectile dysfunction Obese Mild asthma Neuropathy GERD (gastroesophageal reflux disease) Hypertension Diabetes Diabetes mellitus, type 2 Surgical History History of hernia surgery Family History Family History (Updated 03/14/25 @ 14:54 by Jodee Berry MD) Father Diabetes Hypertension Mother Alzheimer disease Social History Social History Housing: House Alcohol intake: never Patient Tobacco Use Status: Current someday Tobacco user Tobacco use type: Cigarette Cigarettes Per Day: 2 Smoked in Last 30 Days: No e-Cigarette/Vaping Use: Never Used Second Hand Smoke Exposure: No Use of substances other than those prescribed or required for medical reasons: No Substance Use Type: Marijuana and Opiates Advance Directives: No Advance Directives Information Provided: Yes service: No Current occupational status: employed Current occupational exposures/hazards: No Cognitive needs: No Hearing needs: No Vision needs: No Physical Exam ED Vital Signs: Vital Signs - 24 hr 05/17/25 17:58 05/17/25 22:00 Temperature 97.3 F 98.0 F Pulse Rate 95 78 Respiratory Rate 18 16 Blood Pressure 173/98 H 157/87 H Pulse Oximetry 95 96 Oxygen Delivery Method Room Air Room Air BMI result Body Mass Index 43.0 Vital signs stable Appearance: Alert.? Oriented X3.? No acute distress.? Head: Normocephalic, atraumatic, no step-offs or deformities Eyes: Pupils equal, round and reactive to light.? ENT: Pharynx normal.? Neck: Normal inspection.? Neck supple.? CVS: Normal heart rate and rhythm.? Pulses normal.? Respiratory: No respiratory distress.? Breath sounds normal.? Abdomen: Soft and nontender.? Skin: Skin warm and dry.? Normal skin color.? Normal skin turgor.?+ dorsal hand swelling on the right. 2+ radial pulses b/l. Normal distal sensation. Normal hand drapery hand. Extremities: No lower extremity edema.? No calf ttp. 5/5 strength to bilateral upper and lower extremities Neuro: Oriented X 3.? No motor deficit.? No sensory deficit. CN 2-12 intact Course Reevaluation(s) Reevaluation #1: Patient's CBC with no acute findings needing intervention normocytic anemia noted. Chemistry with kidney injury BUN of 27 creatinine 1.64. IV fluids ordered. Patient is POC 3855 units of subcutaneous insulin as well as fluids ordered. Transaminases elevated in the 2-1 fashion likely secondary to alcohol abuse. CPK pending. X-ray of the right hand pending DVT steady of right upper extremity pending Time: 19:09 Reevaluation #2: Sign out to Dmitri Time: 19:22 Reevaluation #3: 8:17 PM 05/17/2025 (Shen COOMBS): Patient is signed out to this provider at shift change, in summary the patient is a 40-year-old male with a history of diabetes, hypertension, GERD, presenting to the ED for evaluation of atraumatic right hand swelling, also reporting a history of gout. Patient was found to have mild dorsal swelling of the right hand, x-ray and ultrasound ordered, x-ray has resulted in his negative for acute pathology, ultrasound is pending. However laboratory evaluation ordered in the triage process revealed hyperglycemia, CARLOS, and mild LFT abnormalities. Patient was given insulin and IV fluid hydration. This provider will reassess patient and follow up DVT ultrasound, and repeat laboratory evaluation following interventions. 9:26 PM 05/17/2025 (Shen COOMBS): The patient's ultrasound is negative for DVT, we will discuss results with the patient and reassess symptoms. 9:48 PM 05/17/2025 (Shen COOMBS): Upon reassessment the patient has significant swelling and mild erythema of the right 2nd MCP, however there is also a 2 mm circular ulcerative lesion with overlying scab noted to the lateral aspect of the distal phalanx of the right index. 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 The patient reports swelling began 2 days later on Tuesday, with tenderness extending from the area of the burn up through the lateral index and into the 2nd MCP. The patient's presentation and exam is concerning for possible cellulitis, which would explain the patient's elevated blood sugar. Thankfully patient's exam reveals no diffuse swelling of the index finger, no tenderness of the flexor surface, and no impaired range of motion, no concern for flexor tenosynovitis at this time. However, the patient also reports he had a presentation of gout many years ago in his right knee, and is not currently on treatment for gout. The patient has completed IV fluid hydration, POC glucose has improved to 219. Pending improved renal function on repeat CMP the patient will be discharged and treated with cephalexin for suspected cellulitis, however we will also treat with a 5 day burst of prednisone for possible gout. 10:31 PM 05/17/2025 (Shen COOMBS): The patient's CARLOS and hyperglycemia has improved following interventions in the ED. Patient will be discharged as outlined above. Medications Administered Discontinued Medications Generic Name Dose Route Start Last Admin Trade Name Freq PRN Reason Stop Dose Admin Sodium Chloride 1,000 mls @ 999 mls/hr 05/17/25 19:00 05/17/25 21:46 Ns IV 05/17/25 20:00 Infused .Q1H1M BRITNI Infusion Insulin Human Lispro 5 unit 05/17/25 18:46 05/17/25 18:59 Insulin Lispro 100 Unit/Ml 3 Ml Vial SUBCUT 05/17/25 18:47 5 unit ONCE ONE Administration Medical Decision Making Medical Decision Making [facility] Narrative: 18:45 40-year-old male presents with atraumatic right hand swelling with history of gout. Also reports upper respiratory symptoms times a few days. Physical exam mild swelling to the dorsal aspect of right hand. History and physical exam concerning for gout, pseudogout. Unlikely septic arthritis, osteomyelitis, arterial or venous occlusion. URI symptoms likely viral. Unlikely pneumonia, PE, ACS, dysrhythmia, acute hypoxia. Labs, imaging Differential Diagnosis Differential Diagnoses: The differential diagnosis associated with the presentation includes (History and physical exam concerning for gout, pseudogout. Unlikely septic arthritis, osteomyelitis, arterial or venous occlusion. URI symptoms likely viral. Unlikely pneumonia, PE, ACS, dysrhythmia, acute hypoxia.) Admission/Observation Consideration of admission/observation: Escalation of care including admission/observation considered Lab Data [facility] Lab Attestation statement: I reviewed the patient's lab results. 05/17/25 18:10 05/17/25 22:01 Labs: Lab Results 05/17/25 05/17/25 05/17/25 Range/Units 18:10 18:55 21:43 WBC 10.2 (4.8-10.8) X10*3/uL RBC 5.10 (4.60-5.80) X10*6/uL Hgb 13.6 L (14.0-18.0) g/dl Hct 41.2 L (42.0-52.0) % MCV 80.8 (80.0-98.0) fL MCH 26.7 L (27.0-33.0) pg MCHC 33.0 (31.0-36.0) g/dl RDW 12.6 (11.0-16.0) % Plt Count 298 D (160-400) X10*3/uL MPV 9.6 (9.4-12.4) fL Immature Gran % (Auto) 0.6 H (0.0-0.4) % Neut % (Auto) 74.6 H (45-73) % Lymph % (Auto) 15.8 L (20-40) % Mclennan % (Auto) 7.3 (2-11) % Eos % (Auto) 1.0 (0-4) % Baso % (Auto) 0.7 (0-2) % Lymph # (Auto) 1.6 (1.2-4.9) X10*3/uL Mclennan # (Auto) 0.7 (0.1-1.2) X10*3/uL Eos # (Auto) 0.1 (0.0-0.4) X10*3/uL Baso # (Auto) 0.1 (0.0-0.2) X10*3/uL Abs Immat Gran (auto) 0.06 H (0.00-0.03) X10*3/uL Absolute Neuts (auto) 7.6 (2.0-8.3) x10*3/uL Absolute Nucleated RBC 0.000 (0.0-0.012) X10*3/uL Nucleated RBC % (auto) 0.0 (0.0-0.2) /100WBC Sodium 133 L (135-145) mmol/L Potassium 4.3 (3.3-5.1) mmol/L Chloride 100 (96-108) mmol/L Carbon Dioxide 22 (22-29) mmol/L Anion Gap 15 (12-20) BUN 27 H (9-16) mg/dL Creatinine 1.64 H (0.5-1.4) mg/dL Estim Creat Clear Calc 86.3 Estimated GFR 46 POC Glucose 385 H* 218 H (60-115) mg/dL Random Glucose 445 H* (60-115) mg/dL Uric Acid 6.4 (3.4-7.0) mg/dL Calcium 9.1 (8.4-10.2) mg/dL Total Bilirubin 0.4 (0.0-1.0) mg/dL AST 31 (5-37) U/L ALT 60 H (0-40) U/L Alkaline Phosphatase 127 H (39-117) U/L Total Creatine Kinase 266 H (38-174) U/L Total Protein 7.7 (6.5-8.0) g/dL Albumin 4.2 (3.5-5.0) g/dL COVID-19 (FAYE) (Negative) COVID-19 Clin Com Influenza Type A (SERA) (Negative) Influenza Type B (SERA) (Negative) Influenza A & B Note 05/17/25 Range/Units 22:01 WBC (4.8-10.8) X10*3/uL RBC (4.60-5.80) X10*6/uL Hgb (14.0-18.0) g/dl Hct (42.0-52.0) % MCV (80.0-98.0) fL MCH (27.0-33.0) pg MCHC (31.0-36.0) g/dl RDW (11.0-16.0) % Plt Count (160-400) X10*3/uL MPV (9.4-12.4) fL Immature Gran % (Auto) (0.0-0.4) % Neut % (Auto) (45-73) % Lymph % (Auto) (20-40) % Mclennan % (Auto) (2-11) % Eos % (Auto) (0-4) % Baso % (Auto) (0-2) % Lymph # (Auto) (1.2-4.9) X10*3/uL Mclennan # (Auto) (0.1-1.2) X10*3/uL Eos # (Auto) (0.0-0.4) X10*3/uL Baso # (Auto) (0.0-0.2) X10*3/uL Abs Immat Gran (auto) (0.00-0.03) X10*3/uL Absolute Neuts (auto) (2.0-8.3) x10*3/uL Absolute Nucleated RBC (0.0-0.012) X10*3/uL Nucleated RBC % (auto) (0.0-0.2) /100WBC Sodium 136 (135-145) mmol/L Potassium 4.1 (3.3-5.1) mmol/L Chloride 103 (96-108) mmol/L Carbon Dioxide 22 (22-29) mmol/L Anion Gap 15 (12-20) BUN 26 H (9-16) mg/dL Creatinine 1.37 (0.5-1.4) mg/dL Estim Creat Clear Calc 103.4 Estimated GFR 57 POC Glucose (60-115) mg/dL Random Glucose 213 H (60-115) mg/dL Uric Acid (3.4-7.0) mg/dL Calcium 8.8 (8.4-10.2) mg/dL Total Bilirubin 0.4 (0.0-1.0) mg/dL AST 27 (5-37) U/L ALT 59 H (0-40) U/L Alkaline Phosphatase 120 H (39-117) U/L Total Creatine Kinase (38-174) U/L Total Protein 7.6 (6.5-8.0) g/dL Albumin 4.2 (3.5-5.0) g/dL COVID-19 (FAYE) Negative (Negative) COVID-19 Clin Com See Note Influenza Type A (SERA) Negative (Negative) Influenza Type B (SERA) Negative (Negative) Influenza A & B Note See Note Radiology Impression Discussion of test interpretation with radiology: I have reviewed the radiologist's reading. Radiologist Impression: CLINICAL HISTORY: RT UE swelling Venous duplex ultrasound right upper extremity Comparison: None provided Findings: Accessible deep venous segments are fully compressible with normal Doppler color flow and spectral tracings. IMPRESSION: 1. Negative for right upper extremity deep vein thrombosis. This document has been electronically signed by: Stuart Lloyd MD on 05/17/2025 20:59:24 3 view right hand Comparison: None provided Findings: No fractures or dislocations. No significant loss of joint space or osteophytes. No erosions. No radiopaque foreign body. IMPRESSION: 1. No acute findings This document has been electronically signed by: Stuart Lloyd MD on 05/17/2025 19:48:19 Critical Care Time Critical Care Time Critical Care Time: Yes Total Critical Care Time: 35 Attestation: I attest to this time spent taking care of the patient, obtaining history, physical, reviewing labs, imaging, treatment of patients condition +/- specialist/hospitalist consult +/- procedure Discharge Plan Discharge Clinical Impression: Cellulitis of finger of right hand, Gout, Burn of finger Patient Disposition: Home, Self-Care Instructions: Cellulitis (ED), Gout (ED) Additional Instructions: Thank you for choosing [facility]'s Emergency Department for your care today. Thankfully your x-ray and ultrasound today show no evidence of a blood clot or fracture responsible for your symptoms. Your blood sugar was elevated, and your kidney function was slightly impaired, however with IV fluid hydration these both improved. At this time there is no indication for admission to the hospital or continued ED observation, and it is safe to discharge you home. Your swelling of your hand/right index finger is likely secondary to your recent burn to the tip of your finger while working. It appears that the open area at the tip of your finger may have allowed an infection to develop through your finger and knuckle, this may also explain your elevated blood sugar. However seeing as you have a history of gout, and the majority of the swelling is at your knuckle, a gout flare can not be entirely excluded. We are treating you for suspected cellulitis with the antibiotic cephalexin, please take this as prescribed until it is finished. We are also treating your possible gout with prednisone. Please take this as prescribed for the next 5 days. You should take alternating (staggered) doses of ibuprofen 600mg and Tylenol 1000mg every 4 hours as needed for any additional pain. Please stay well hydrated and get plenty of rest. Please follow up with your primary care physician for re-evaluation, additional management of your symptoms, and continued preventative care. If you do not have a primary care physician, please call the [facility] at [phone] to establish a new primary care physician. While waiting to establish your new primary care physician, you can call our [facility] at [phone] for non-emergency needs. Please return to the emergency department if you develop a severe or sudden change in your symptoms, a fever over 100.4 that does not improve with Tylenol or Ibuprofen, recurrent vomiting, or any other new or worsening symptoms or concerns. Prescriptions: New prednisone 20 mg tablet 60 mg PO DAILY 5 Days Qty: 15 0RF cephalexin 500 mg capsule 500 mg PO QID Qty: 28 0RF ibuprofen 600 mg tablet 600 mg PO Q8H PRN (Reason: fever or pain) Qty: 30 0RF acetaminophen 500 mg capsule 1,000 mg PO .q8 PRN (Reason: fever or pain) Qty: 30 0RF No Action (DME) blood sugar diagnostic Strip See Rx Instructions .ROUTE .MEDSUPPLY Qty: 100 3RF Rx Instructions: Use 1 test strip twice a day (DME) lancets Misc See Rx Instructions .ROUTE .MEDSUPPLY Qty: 100 4RF Rx Instructions: Use 1 lancet twice a day insulin degludec [Tresiba FlexTouch U-100] 100 unit/mL (3 mL) insulin pen 50 unit subcut QPM 90 Days Qty: 45 3RF escitalopram oxalate 20 mg tablet 20 mg PO BEDTIME 90 Days Qty: 90 1RF Ozempic 2 mg/dose (8 mg/3 mL) pen injector 2 mg subcut QWEEK 28 Days Qty: 3 0RF chlorthalidone 50 mg tablet 50 mg PO DAILY 90 Days Qty: 90 1RF atorvastatin 20 mg tablet 20 mg PO BEDTIME 90 Days Qty: 90 1RF metformin 500 mg tablet 500 mg PO BID 90 Days Qty: 180 3RF amlodipine-benazepril 10-40 mg capsule 1 cap PO DAILY 90 Days Qty: 90 1RF hydralazine 50 mg tablet 50 mg PO TID 90 Days Qty: 270 1RF metoprolol succinate 50 mg tablet extended release 24 hr 50 mg PO DAILY 90 Days Qty: 90 1RF ibuprofen 600 mg tablet 600 mg PO Q6H PRN (Reason: pain) 30 Days Qty: 90 1RF (DME) blood-glucose meter Kit See Rx Instructions .ROUTE .MEDSUPPLY Qty: 1 0RF Rx Instructions: As directed ondansetron HCl 4 mg tablet 4 mg PO Q8H PRN (Reason: nausea and vomiting) Qty: 10 0RF ketorolac 10 mg tablet 10 mg PO QID PRN (Reason: pain) Qty: 20 0RF Rx Instructions: maximum total duration of 5 days from all oral, intranasal, or parenteral formulations. Patient received an IV form of Toradol here in the emergency department dicyclomine 20 mg tablet 20 mg PO BID PRN (Reason: abdominal pain) Qty: 6 0RF meclizine 25 mg tablet 25 mg PO TID PRN (Reason: dizziness) Qty: 20 0RF (DME) pen needle, diabetic [1st Tier Unifine Pentips] 31 gauge x 5/16 needle See Rx Instructions .ROUTE .MEDSUPPLY Qty: 50 11RF Rx Instructions: use 1 pen needle once a day silver sulfadiazine 1 % cream 1 appl topical DAILY 14 Days Qty: 25 0RF Rx Instructions: apply a 1.5 mm thickness (DME) Dexcom G6 Sensor Device See Rx Instructions .Route Qty: 3 11RF Rx Instructions: As directed fluticasone propionate [Flonase Allergy Relief] 50 mcg/actuation spray,suspension 1 spray intranasal DAILY 14 Days Qty: 150 0RF Rx Instructions: administer into each nostril lidocaine 5 % adhesive patch,medicated 1 patch topical DAILY PRN (Reason: pain) Qty: 30 0RF Rx Instructions: leave on most painful area for up to 12 hrs acetaminophen [Tylenol Extra Strength] 500 mg tablet 500 - 1,000 mg PO Q6H PRN (Reason: pain) Qty: 30 0RF albuterol sulfate 90 mcg/actuation aerosol powdr breath activated 2 inh inhalation Q4-6H PRN (Reason: shortness of breath or wheezing) Qty: 1 0RF omeprazole 20 mg capsule,delayed release(DR/EC) 20 mg PO DAILY 90 Days Qty: 90 2RF cyclobenzaprine 10 mg tablet 10 mg PO TID PRN (Reason: muscle spasm) Qty: 20 0RF Referrals: Jodee Rich MD [Primary Care Provider, Internal Medicine] Clinical Impression: Gout; Cellulitis of finger of right hand Print Language: Honduran
[2025-05-17 18:43] LABS: Alanine Aminotransferase 60 U/L (0-40); Albumin Level 4.2 g/dL (3.5-5.0); Alkaline Phosphatase 127 U/L (39-117); Anion Gap 15 (12-20); Aspartate Amino Transferase 31 U/L (5-37); Blood Urea Nitrogen 27 mg/dL (9-16); Calcium 9.1 mg/dL (8.4-10.2); Carbon Dioxide 22 mmol/L (22-29); Chloride 100 mmol/L (96-108); Creatinine Clr Calc Pharmacy 86.3; Estimated Glomerular Filt Rate 46; Potassium 4.3 mmol/L (3.3-5.1); Sodium 133 mmol/L (135-145); Total Protein 7.7 g/dL (6.5-8.0); Uric Acid 6.4 mg/dL (3.4-7.0)
[2025-05-17 18:59] LABS: Glucose, Whole Blood 385 mg/dL (60-115)
[2025-05-17 21:46] LABS: Glucose, Whole Blood 218 mg/dL (60-115)
[2025-05-17 22:00] VITALS: BP 157/87; PULSE 78; RESP 16; TEMP 36.7; O2SAT 96
[2025-05-17 22:24] LABS: COVID-19 Test Negative (Negative); IDNOW Serial# 152EDE1D
[2025-05-17 22:25] LABS: IDNOW Serial# 16C4AD1C; Influenza B2 Negative (Negative)
[2025-05-17 22:26] LABS: Alanine Aminotransferase 59 U/L (0-40); Albumin Level 4.2 g/dL (3.5-5.0); Alkaline Phosphatase 120 U/L (39-117); Anion Gap 15 (12-20); Aspartate Amino Transferase 27 U/L (5-37); Blood Urea Nitrogen 26 mg/dL (9-16); Calcium 8.8 mg/dL (8.4-10.2); Carbon Dioxide 22 mmol/L (22-29); Chloride 103 mmol/L (96-108); Creatinine Clr Calc Pharmacy 103.4; Estimated Glomerular Filt Rate 57; Potassium 4.1 mmol/L (3.3-5.1); Sodium 136 mmol/L (135-145); Total Protein 7.6 g/dL (6.5-8.0)
[2025-05-17 23:13] VITALS: BP 145/68; PULSE 72; RESP 18; TEMP 36.8; O2SAT 97
== END 2025-05-17 23:15 | disposition home or self-care (01) ==
PROVIDERS: Physician Assistant; Emergency Provider Emergency Medicine; PCP Internal Medicine
DX: L03.113 Cellulitis of right upper limb (principal); M10.041 Idiopathic gout, right hand; R05.9 Cough, unspecified; R11.0 Nausea; R60.0 Localized edema; Z11.52 Encounter for screening for COVID-19
CPT/HCPCS: 36415; 73130; 80053; 82550; 82947; 84550; 85025; 87502; 87635; 93971; 96360; 99284

== ENCOUNTER → 2025-05-17 19:08 | Outpatient (BNV) | payer OTHER, SELFPAY | PROVIDERS: PCP Internal Medicine; Visit Provider Radiology Diagnostic Radiology | DX: R22.31 Localized swelling, mass and lump, right upper limb (principal) | CPT/HCPCS: 73130; 93971 ==

== ENCOUNTER 2025-07-12 12:18 | Outpatient (REF) | payer OTHER, SELFPAY ==
[2025-07-12 14:33] LABS: Alanine Aminotransferase 26 U/L (0-40); Albumin Level 4.4 g/dL (3.5-5.0); Alkaline Phosphatase 141 U/L (39-117); Anion Gap 15 (12-20); Aspartate Amino Transferase 25 U/L (5-37); Blood Urea Nitrogen 15 mg/dL (9-16); Calcium 9.2 mg/dL (8.4-10.2); Carbon Dioxide 21 mmol/L (22-29); Chloride 107 mmol/L (96-108); Cholesterol 195 mg/dL (<200); Estimated Glomerular Filt Rate > 60; HDL Cholesterol 63 mg/dL (>40); Potassium 3.6 mmol/L (3.3-5.1); Sodium 139 mmol/L (135-145); Total Protein 7.5 g/dL (6.5-8.0); Triglycerides 117 mg/dL (<150)
[2025-07-12 15:12] LABS: Microalbum/Creatinine Ratio Ur 29.6 ug/mg cr (<30)
--- OUTSIDE RECORDS SUMMARY | 2025-07-12 17:49 | XMS_ITS | Clinical Summary ---
Author Organization [facility] Address [address] [place] [address] Care Team Providers Care Ethics Officer Name Role Phone Jodee Berry MD Primary Care Provider [phone] Surgical History Surgery Date Site/Laterality Comments HERNIA REPAIR PROCEDURE: HISTORICAL HERNIA REPAIR/UMB APPENDECTOMY PROCEDURE: [place] APPENDECTOMY Medical History Medical History Date Comments [...] on file Sexual Orientation Not on file Last Filed [...] of 3 - 19+ 3-dose series) 2002 HPV Vaccines (1 - 3-dose SCD M series) 2010 Depression Screening 08/01/2024 COVID-19 Vaccine (1 - 2024-2 6 season) 2025 Influenza Vaccine (#1) 2025 RSV Immunization Adult Patie nts (1 - 1-dose 75+ series) 2058 HIB Vaccines Aged Out No longer eligi [...] age to complete this topic Care Teams Ethics Officer Relationship Specialty Start Date End Date Jodee Berry MD [address] [place] [address] , [address] [facility] D/B/A: [facility] KALEB Sequeira PCP - General Internal Medicine 02/11/22
--- OUTSIDE RECORDS SUMMARY | 2025-07-12 17:49 | XMS_ITS | Clinical Summary ---
Author Organization [facility] Address [address] [facility] [address] [place] [id number] Phone Care Team Providers Care Master Control Technician Name Role Phone Jodee Rich MD [...] file Medical Devices Not on file Insurance [facility] [address] [address] [address] [place] [address] [employer] [facility] [address] [place] [address] [employer] [facility] [employer] [facility] [employer] [facility] Care Teams Master Control Technician Relationship Specialty Start Date End Date Jodee Rich MD [address] [place] [address] PCP - General Internal Medicine 02/10/22 Additional Source Comments The information contained in this document represents components of the legal health record. It is not the complete legal health record.[facility]
== END 2025-07-12 12:19 | disposition home or self-care (01) ==
LOC: HO.LAB 12:18
PROVIDERS: PCP Internal Medicine; Visit Provider Internal Medicine
DX: E66.01 Morbid (severe) obesity due to excess calories (principal); Z68.41 Body mass index [BMI] 40.0-44.9, adult; E78.5 Hyperlipidemia, unspecified; R80.9 Proteinuria, unspecified
CPT/HCPCS: 36415; 80053; 80061; 82043; 82570

== ENCOUNTER 2025-07-15 14:51 | Outpatient (AMB) | payer OTHER, SELFPAY ==
--- NOTE | 2025-07-15 15:06 | MHC.PC.OV ---
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 Accompanied by: Self / Same As Patient Allergies kiwi (KIWI) Allergy (Intermediate, Verified 07/15/25 15:19) SCRATCHY THROAT/VOMITING Medication List - Last Reconciled 07/15/25 by Jodee Berry MD acetaminophen 1,000 mg (2 x 500 mg) PO .q8 PRN acetaminophen (Tylenol Extra Strength) 500 - 1,000 mg (1 - 2 x 500 mg) PO Q6H PRN albuterol sulfate 90 mcg/actuation 2 inhalations inhalation Q4-6H PRN amlodipine-benazepril 10-40 mg 1 cap PO DAILY 90 days atorvastatin 20 mg PO BEDTIME 90 days blood sugar diagnostic Use 1 test strip twice a day blood-glucose meter As directed blood-glucose sensor (Pirate3D G6 Sensor device) As directed cephalexin 500 mg PO QID chlorthalidone 50 mg PO DAILY 90 days cyclobenzaprine 10 mg PO TID PRN dicyclomine 20 mg PO BID PRN escitalopram oxalate 20 mg PO BEDTIME 90 days fluticasone propionate 50 mcg/actuation (Flonase Allergy Relief) 1 spray intranasal DAILY 14 days hydralazine 50 mg PO TID 90 days ibuprofen 600 mg PO Q8H PRN ibuprofen 600 mg PO Q6H PRN 30 days insulin degludec (Tresiba FlexTouch U-100 insulin) 50 units (0.5 mL) subcut QPM 90 days ketorolac 10 mg PO QID PRN lancets Use 1 lancet twice a day lidocaine 5% 1 patch topical DAILY PRN meclizine 25 mg PO TID PRN metformin 500 mg PO BID 90 days metoprolol succinate ER 50 mg PO DAILY 90 days omeprazole 20 mg PO DAILY 90 days ondansetron HCl 4 mg PO Q8H PRN pen needle, diabetic (1st Tier Unifine Pentips) use 1 pen needle once a day prednisone 60 mg (3 x 20 mg) PO DAILY 5 days semaglutide (Ozempic) 2 mg (0.75 mL) subcut QWEEK 4 weeks silver sulfadiazine 1% 1 appl topical DAILY 2 weeks Tobacco use date assessed: 07/15/25 Dental Screening Dental Screen Date: 07/15/25 Did you have a dental visit in the last 12 months?: No Did you have a dental problem in the last 6 months where you did not have access to dental care?: No Was dental information given to patient?: No HPI HPI Comments History of Present Illness Details The patient is a 40 year old male presenting for management of chronic conditions and new onset back pain. He reports recent onset of significant back pain after starting a new job with [employer]. He has previously tried strong NSAIDs without relief. The patient has a history of type 2 diabetes, with a recent A1c of 9.2% and a fasting blood glucose of 228 mg/dL. His medications include metformin, Tresiba 50 units, and he previously used Ozempic, but has not taken it for over two months. He reports his blood sugars have been 'alright.' For hypertension, he is taking amlodipine with benazepril, chlorthalidone 50 mg, hydralazine 50 mg three times a day, and metoprolol. He has been adherent with his hydralazine. For hyperlipidemia, he is on atorvastatin 20 mg. Recent lab work showed a total cholesterol of 195 mg/dL and LDL of 109 mg/dL. He has a history of depression, for which he takes escitalopram, and reports symptoms get particularly bad at night. Other medications include Tylenol as needed, an inhaler, cyclobenzaprine as needed, dicyclomine, fluticasone nasal spray, ibuprofen, meclizine as needed, and omeprazole. He reports an allergy to kiwi. He reports he started smoking cigarettes again last week. [facility] Medical History Diabetes Essential hypertension Onychomycosis STD exposure Erectile dysfunction Obese Mild asthma Neuropathy GERD (gastroesophageal reflux disease) Hypertension Diabetes Diabetes mellitus, type 2 Surgical History History of hernia surgery Family History Father Diabetes Hypertension Mother Alzheimer disease Social History (Reviewed 07/15/25 @ 15:09 by VISHNU Marie Housing: House Alcohol intake: never Patient Tobacco Use Status: Current someday Tobacco user Tobacco use type: Cigarette Cigarettes Per Day: 2 e-Cigarette/Vaping Use: Never Used Second Hand Smoke Exposure: No Substance Use Type: Marijuana and Opiates service: No Current occupational status: employed Current occupational exposures/hazards: No Cognitive needs: No Hearing needs: No Vision needs: No Questionnaire Thrive Questionnaire Date Thrive assessed: 07/15/25 What is your living situation today?: I choose not to answer this question Within the past 12 months, did the food you bought not last and you didn't have the money to get more?: I choose not to answer this question Within the past 12 months, did you worry whether your food would run out before you got money to buy more?: I choose not to answer this question Do you have trouble paying for medicines?: I choose not to answer this question Do you have trouble getting transportation to medical appointments?: I choose not to answer this question Do you have trouble paying your heating and electricity bill?: I choose not to answer this question Do you have trouble taking care of your child, family member or friend?: I choose not to answer this question Do you have trouble with day-to-day activities such as bathing, preparing meals, shopping, managing finances, etc.?: I choose not to answer this question Are you currently unemployed and looking for a job?: I choose not to answer this question Are you interested in more education?: I choose not to answer this question Please select the resources that you would like help with: None Currently or been in a relationship where the following occur: I choose not to answer THRIVE Score: 0 AUDIT C Alcohol Use Questionnaire (AUDIT-C) 1. How often do you have a drink containing alcohol?: 2-3 times a week 2. How many drinks containing alcohol do you have on a typical day when you are drinking?: 3 or 4 3. How often do you have six or more drinks on one occasion?: Less than monthly Total Score: 5 MAUREEN-7 AMB Questionnaire MAUREEN-7 Date MAUREEN - 7 assessed: 03/14/25 Source: Developed by Drs. Kwasi Harrison, Wendi Thomas, Eric Carlson and colleagues, with an educational musa from [employer]. Review of Systems Const All systems reviewed & are unremarkable except as noted in HPI and below Card Denies chest pain at rest, Denies chest pain with activity, Denies edema, Denies irregular heart rhythm, Denies claudication, Denies dyspnea, Denies dyspnea on exertion, Denies orthopnea, Denies paroxysmal nocturnal dyspnea and Denies slow heart rate Resp Denies cough, Denies dyspnea and Denies dyspnea on exertion GI Denies abdominal pain, Denies change in bowel habits, Denies excessive flatus, Denies nausea and Denies vomiting Physical exam (Primary Care) Vital Signs: Last Vital Signs Pulse 113 H 07/15/25 15:07 Resp 18 07/15/25 15:07 BP 158/100 H 07/15/25 15:07 Pulse Ox 97 07/15/25 15:07 Oxygen Delivery Method Room Air 07/15/25 15:07 BMI result Body Mass Index 41.7 BMI Assessment/Plan discussion: High BMI High, discussed plan: lifestyle, weight reduction, dietary and physical activity Tobacco/Smoking Status: Tobacco use Status Tobacco use date assessed 07/15/25 07/15/25 15:15 Patient Tobacco Use Status Current someday Tobacco 07/15/25 15:15 Tobacco use type Cigarette 07/15/25 15:15 e-Cigarette/Vaping Use Never Used 07/15/25 15:15 Thrive Assessment: Date of Thrive Assessment Date Thrive assessed 07/15/25 07/15/25 15:15 Currently or been in a relationship where the following occur: I choose not to answer Resp Effort & Inspection: normal respiratory effort Auscultation: clear to auscultation bilaterally Cardio Jugular venous distension: no JVD Rate: regular rate Rhythm: regular rhythm Heart sounds: S1 normal heart sound present and S2 normal heart sound present Extrem General: Yes full ROM Results AMB Hemoglobin A1c AMB Hemoglobin A1c 9.2 % Last Edit by CHERRY Tee on 07/15/25 15:57 Results Reviewed Results Reviewed: Laboratory Last Values Hgb A1c (Clinic) 9.2 % (4.0-6.0) H 07/15/25 15:19 Coding Level of Care Code Add On Preventative Visit Only Diagnoses Essential hypertension I10 Hyperlipidemia LDL goal <70 E78.5 Mild recurrent major depression F33.0 Anxiety F41.9 Type 2 diabetes mellitus with hyperglycemia, with long-term current use of insulin E11.65; Z79.4 Diabetes mellitus director long term care insulin use: with fdc use Diabetes mellitus complication status: with hyperglycemia Morbid obesity with BMI of 40.0-44.9, adult E66.01; Z68.41 Left sided sciatica M54.32 Time Spent (min) 23 Assessment & Plan Assessment & Plan (1) Essential hypertension: Code(s): I10 - Essential (primary) hypertension Category: Medical (2) Hyperlipidemia LDL goal <70: Code(s): E78.5 - Hyperlipidemia, unspecified Category: Medical (3) Mild recurrent major depression: Code(s): F33.0 - Major depressive disorder, recurrent, mild Category: Medical (4) Anxiety: Code(s): F41.9 - Anxiety disorder, unspecified Category: Medical (5) Diabetes mellitus, type 2: Code(s): E11.9 - Type 2 diabetes mellitus without complications Category: Medical Qualifiers: Diabetes mellitus director long term care insulin use: with fdc use Diabetes mellitus complication status: with hyperglycemia Qualified Code(s): E11.65 - Type 2 diabetes mellitus with hyperglycemia; Z79.4 - joint terminal attack controller (current) use of insulin (6) Morbid obesity with BMI of 40.0-44.9, adult: Code(s): E66.01 - Morbid (severe) obesity due to excess calories; Z68.41 - Body mass index [BMI] 40.0-44.9, adult Category: Medical (7) Left sided sciatica: Code(s): M54.32 - Sciatica, left side Category: Medical Plan Plan 1. Back Pain The patient reports new onset back pain, and prior trials of strong NSAIDs have not been effective. Will prescribe tramadol as a weak opiate analgesic. The patient is to start with one tablet, and if not effective within an hour, may take a second, with a maximum of two tablets per day. A prescription for 30 tablets with no refills will be sent. Will also attempt to prescribe a TENS unit, as this may provide relief for his pain. 2. Type 2 Diabetes Mellitus The patient's A1c was elevated at 9.2%. Will increase the dose of his insulin. Will resend a prescription for Ozempic at the lowest starting dose, as he has been off the medication for over two months. 3. Hypertension To better manage his blood pressure, the dose of hydralazine will be increased from 50 mg to 100 mg. 4. Hyperlipidemia The patient's LDL is elevated at 109 mg/dL, with a goal of less than 70 mg/dL. The dose of atorvastatin will be increased from 20 mg to 40 mg. 5. Depression The patient reports his depression gets worse at night. A referral for counseling will be placed. 6. Morbid obesity The patient was counseled on the importance of weight loss. He was advised that resuming smoking is not good for his blood pressure. Orders: Orders AMB Hemoglobin A1c Today E11.65 - Type 2 diabetes mellitus with hyperglycemia, Z79.4 - FPC (current) use of insulin Referrals Counseling Referral F33.0 - Major depressive disorder, recurrent, mild, F41.9 - Anxiety disorder, unspecified Medications: New semaglutide (Ozempic) for 4 weeks 0.25 mg (0.368 mL) subcut QWEEK 1.472 mL 0RF 4 weeks E11.65 - Type 2 diabetes mellitus with hyperglycemia, Z79.4 - joint terminal attack controller (current) use of insulin tramadol 50 mg PO BID PRN 60 tabs 0RF pain 30 days hydralazine 100 mg PO TID 270 tabs 1RF 90 days atorvastatin (Lipitor) 40 mg PO BEDTIME 90 tabs 1RF 90 days TENS units (TENS 502 device) As directed 1 ea 0RF M54.32 - Sciatica, left side TENS units (TENS 502 device) As directed 1 ea 0RF M54.32 - Sciatica, left side Changed From insulin degludec (Tresiba FlexTouch U-100 insulin) 50 units (0.5 mL) subcut QPM 90 days 45 mL 3RF E11.9 - Type 2 diabetes mellitus without complications To insulin degludec (Tresiba FlexTouch U-100 insulin) 60 units (0.6 mL) subcut QPM 54 mL 3RF 90 days E11.9 - Type 2 diabetes mellitus without complications Refilled semaglutide (Ozempic) 2 mg (0.75 mL) subcut QWEEK 3 mL 0RF 4 weeks Discontinued atorvastatin Discontinued Reason: Patient Completed Course 20 mg PO BEDTIME 90 days 90 tabs 1RF hydralazine Discontinued Reason: Patient Completed Course 50 mg PO TID 90 days 270 tabs 1RF
[2025-07-15 15:07] VITALS: BP 158/100; PULSE 113; RESP 18; O2SAT 97; BMI 41.7
--- OUTSIDE RECORDS SUMMARY | 2025-07-15 21:23 | XMS_ITS | Clinical Summary ---
Author Organization [facility] Address [address] [place] [address] Care Team Providers Care Sand Mill Operator Facing Sand Name Role Phone Jodee Berry MD Primary Care Provider [phone] Surgical History Surgery Date Site/Laterality Comments HERNIA REPAIR PROCEDURE: HISTORICAL HERNIA REPAIR/UMB APPENDECTOMY PROCEDURE: [place] APPENDECTOMY Medical History Medical History Date Comments [...] age to complete this topic Care Teams Sand Mill Operator Facing Sand Relationship Specialty Start Date End Date Jodee Berry MD [address] [place] [address] , [address] [facility] Physician [facility] D/B/A: [facility] KALEB Sequeira PCP - General Internal Medicine 02/11/22
--- OUTSIDE RECORDS SUMMARY | 2025-07-15 21:23 | XMS_ITS | Clinical Summary ---
Author Organization [facility] Address [address] [facility] [address] [place] [id number] Phone Care Team Providers Care Manager Banking Name Role Phone Jodee Rich MD Primary [...] file Medical Devices Not on file Insurance [facility] [place] [address] [place] [address] [place] [address] [place] [address] [address] [facility] [place] [address] [place] [address] [employer] [facility]CO [facility] ACO [facility] ACO Care Teams Manager Banking Relationship Specialty Start Date End Date Jodee Rich MD [address] [place] [address] PCP - General Internal Medicine 02/10/22 Additional Source Comments The information contained in this document represents components of the legal health record. It is not the complete legal health record.[facility]
== END 2025-07-15 15:37 | disposition home or self-care (01) ==
LOC: HO.HMCH 14:52
PROVIDERS: PCP Internal Medicine; Visit Provider Internal Medicine
DX: I10 Essential (primary) hypertension (principal); E78.5 Hyperlipidemia, unspecified; F33.0 Major depressive disorder, recurrent, mild; F41.9 Anxiety disorder, unspecified; E11.65 Type 2 diabetes mellitus with hyperglycemia; Z79.4 Long term (current) use of insulin; E66.01 Morbid (severe) obesity due to excess calories; Z68.41 Body mass index [BMI] 40.0-44.9, adult; M54.32 Sciatica, left side

== ENCOUNTER → 2025-07-15 14:51 | Outpatient (BNVA) | payer OTHER, SELFPAY | PROVIDERS: PCP Internal Medicine; Visit Provider Internal Medicine | DX: M54.32 Sciatica, left side (principal); E11.65 Type 2 diabetes mellitus with hyperglycemia; I10 Essential (primary) hypertension; E78.5 Hyperlipidemia, unspecified; F33.0 Major depressive disorder, recurrent, mild; F41.9 Anxiety disorder, unspecified; E66.01 Morbid (severe) obesity due to excess calories; Z79.4 Long term (current) use of insulin; Z68.41 Body mass index [BMI] 40.0-44.9, adult | CPT/HCPCS: 83036; 99212 ==